=== PATIENT | female | born 1950 | race Caucasian/White ===

== ENCOUNTER → 2022-09-15 12:32 | Outpatient (REF) | payer MEDICARE, OTHER, SELFPAY ==
--- NOTE | 2022-09-15 12:38 | HM_ITS ---
* Total monitoring time 1 day. * Underlying rhythm is sinus. Average ventricular rate 99/Min. Range 68 to 139/Min. About 49% the time, rate greater than 100/Min. * No evidence of atrial fibrillation or flutter. * No significant pauses or AV blocks. * Patient marker noted in association with sinus tachycardia. No patient diary. MTDD
== END ==
LOC: HO.CARD 12:32
PROVIDERS: PCP Internal Medicine; Visit Provider Internal Medicine
DX: I47.9 Paroxysmal tachycardia, unspecified (principal)
CPT/HCPCS: 93226

== ENCOUNTER 2022-11-16 14:48 | Emergency (ER) | payer MEDICARE, OTHER, SELFPAY ==
--- NOTE | ~2022-11-16 | CT_ITS ---
EXAMINATION: CT ANGIOGRAM HEAD CT ANGIOGRAM NECK CLINICAL INFORMATION: Left-sided ptosis. Right hand weakness. Aphasia. COMPARISON: CT head from 11/16/2022. Brain MRI from 09/27/2011. TECHNIQUE: Initial noncontrast culled fruit packer imaging of the head and neck was performed. Comparison is made with noncontrast head CT from earlier today. Test bolus sequences followed by intravenous administration 70 mL of Omnipaque 350. Helical imaging was performed in the axial plane from the aortic arch to the skull vertex. Delayed postcontrast imaging of the head was also performed. The data was processed at the educational technologist's workstation for generation of MIP sequences. Angled MIPs and volume rendered reformatted images were also generated at an offline 3D workstation. Stenoses are assessed in accordance with NASCET criteria unless otherwise indicated. This CT examination was performed using dose optimization techniques as appropriate, variously including the following: *Automated exposure control. *Adjustment of mA and/or kV according to patient size (this includes techniques or standardized protocols for targeted exams where dose is matched to indication/reason for exam; i.e. extremities or head). *Use of iterative reconstruction technique. DLP: 1507 mGy-cm FINDINGS: CT Head: Left-sided BAHA bone anchor is noted. Evaluation of the left temporoparietal lobes is partially limited by metal artifact from this device. There is no evidence of acute intracranial hemorrhage or edematous territorial infarction. A few foci of hypoattenuation in the periventricular and deep white matter are consistent with mild microangiopathy. Welsh-white matter differentiation is preserved. The ventricles are normal in size and configuration. No evidence for obstructive hydrocephalus. No abnormal mass effect or midline shift. No extra-axial fluid collections. No pathologic intra-axial enhancement. No acute soft tissue or osseous abnormalities. Mild mucosal thickening of the paranasal sinuses. Mild leftward nasal septal deviation. The mastoid air cells and middle ear cavities are clear. Advanced degenerative arthropathy of the left temporomandibular joint. CT Neck: Changes of recent left-sided endarterectomy with small volume soft tissue gas and moderate edema surrounding the left carotid bulb. There is mild rightward shift of the larynx and cervical trachea. The thyroid gland and remaining cervical soft tissues are within normal limits. No unexpected radiopaque foreign bodies. Straightening of the normal cervical lordosis. Advanced degenerative disc disease from C3-T2. Facet and uncovertebral joint arthropathy leads to osseous encroachment on the neural foramina from C3-C7. CT Upper Chest: The visualized lung apices and upper mediastinum are within normal limits. Neck CTA: Aortic Arch: Normal contour and caliber. Classic 3 vessel branching pattern of the aortic arch. Great Vessel Origins: No significant stenosis of the branch origins. Right Common Carotid Artery: No focal stenosis or occlusion. Cervical Right Internal Carotid Artery: Heavy calcific atherosclerotic disease of the carotid bulb and proximal internal carotid causes 75% stenosis of the origin of the right ICA. Left Common Carotid Artery: Changes of recent left-sided endarterectomy. Otherwise, normal opacification of the left common carotid artery. Cervical Left Internal Carotid Artery: Following endarterectomy, left carotid bulb is widely patent. There is 35% narrowing of the proximal left ICA at the junction of the endarterectomy site. Cervical Right Vertebral Artery: Co-dominant. No focal stenosis or occlusion. Cervical Left Vertebral Artery: Co-dominant. No focal stenosis or occlusion. Brain CTA: Intracranial Internal Carotid Arteries: Calcific atherosclerotic disease of the intracranial internal carotid arteries without occlusion or flow-limiting stenosis. Right Anterior Cerebral Artery: Normal A1 segment. Normal opacification of the distal MK segments. Left Anterior Cerebral Artery: Normal A1 segment. Normal opacification of the distal KM segments. Anterior Communicating Artery: Normal. Right Middle Cerebral Artery: Normal M1 segment of the MCA without focal stenosis or occlusion. Normal arborization of the distal segments. Left Middle Cerebral Artery: Normal M1 segment of the MCA without focal stenosis or occlusion. Normal arborization of the distal segments. Right Vertebral Artery: Normal V4 segment. Normal opacification of the proximal segments of the posterior inferior cerebellar artery. Left Vertebral Artery: Normal V4 segment. Normal opacification of the proximal segments of the posterior inferior cerebellar artery. Basilar Artery: Normal without focal stenosis or occlusion. Normal appearance of the proximal superior cerebellar arteries. Right Posterior Cerebral Artery: Normal P1 segment. Normal opacification of the distal CLAY TRANSPORTER segments. Left Posterior Cerebral Artery: Normal P1 segment. Normal opacification of the distal CLAY TRANSPORTER segments. Normal opacification of the superior sagittal, straight, transverse, and sigmoid sinuses. CT/CT angio head neck stroke IMPRESSION: 1. No evidence of acute intracranial hemorrhage or edematous territorial infarction. Mild underlying microangiopathy and generalized cerebral volume loss. 2. CTA of the head and neck without proximal occlusion. 3. Heavy calcific atherosclerotic disease of the right carotid bulb and proximal ICA causes 75% stenosis of the origin of the right ICA. 4. Following endarterectomy, left carotid bulb is widely patent. There is 35% narrowing of the proximal left ICA at the junction of the endarterectomy site. 5. Moderate to advanced multilevel degenerative spondyloarthropathy of the cervical spine. This critical result was discussed with Dr. Arias at 18:39 on 11/16/2022 and it was ascertained that the content and urgency of the report was understood at the time of direct communication.
--- NOTE | ~2022-11-16 | CT_ITS ---
EXAMINATION: CT HEAD WITHOUT CONTRAST (STROKE PROTOCOL) CLINICAL INFORMATION: Stroke protocol. Neurologic deficit. COMPARISON: Brain MRI and head CT from 09/27/2011. TECHNIQUE: Contiguous axial imaging was performed from the skull base to vertex without intravenous administration of contrast. This CT examination was performed using dose optimization techniques as appropriate, variously including the following: *Automated exposure control *Adjustment of mA and/or kV according to patient size (this includes techniques or standardized protocols for targeted exams where dose is matched to indication/reason for exam; i.e. extremities or head) *Use of iterative reconstruction technique DLP: 642 mGy-cm FINDINGS: Streak artifact is produced by a somewhat disc shaped metallic structure embedded within region of inferior left parietal bone and scalp. The streak artifact partially interferes with evaluation of underlying brain parenchyma. The brain has well-preserved greenwood-white matter differentiation. No evidence of an acute major vascular territory infarction. No intracranial hemorrhage is identified. No extra-axial fluid collection, focal mass effect or midline shift. The ventricles have normal size and configuration. The brainstem and cerebellum are normal. There is atherosclerotic calcification of proximal intradural segments of vertebral arteries and cavernous carotid arteries. The visualized paranasal sinuses and mastoid air cells are well aerated. Prior ocular lens extractions. There is chronic arthrosis of the left temporomandibular joint with presence of a relatively shallow mandibular fossa of the joint. CT/CT head for stroke IMPRESSION: No evidence of intracranial hemorrhage or other acute intracranial pathology. No evidence of a major vascular territory infarction. Note that examination is partially limited by the streak artifact present by a metallic, somewhat disc shaped structure embedded in bone. This critical result was discussed with Dr. Aranda at 3:42 pm on 11/16/2022. It was ascertained that the content and urgency of the report was understood at the time of direct communication.
--- NOTE | 2022-11-16 14:59 | ECG_ITS ---
Test Reason : stroke Blood Pressure : / mmHG Vent. Rate : 095 BPM Atrial Rate : 095 BPM P-R Int : 142 ms QRS Dur : 078 ms QT Int : 352 ms P-R-T Axes : -04 -01 028 degrees QTc Int : 442 ms Normal sinus rhythm Normal ECG When compared with ECG of 01-OCT-2011 10:31, QRS duration has decreased Referred By: Paula Aranda Electronically Signed By:Andreas Patel
[2022-11-16 15:10] VITALS: BP 105/49; BP 155/88; PULSE 100; PULSE 80; RESP 18; TEMP 37.1; O2SAT 96; O2SAT 98; BMI 34.9
--- NOTE | 2022-11-16 15:21 | PC.NURSE ---
Patient in Ct scan Dr. Paula Aranda putting in IV in Ct scan via ultrasound guidance. Patient difficult stick. awaiting patient to get in room to do vitals and lab draws.
--- NOTE | 2022-11-16 15:25 | ED_ITS ---
HPI - Neuro Symptoms/Deficit General Chief Complaint: Stroke Stated Complaint: left arm weakness and difficulty finding words x4h Time Seen by Provider: 11/16/22 14:57 Source: patient Mode of arrival: EMS Limitations: no limitations and other History of Present Illness HPI Narrative: 72 yo female with hx of TIA in October, found to have 80% L carotid stenosis and underwent endartectomy at [facility] on 11/12, HLD, DM she reportedly developed some word finding difficulties at 1030pm today - she has been taking eliquis 5mg BID. She also notes putting herself down to the ground without head injury today after realizing she was going to fall. Related Data Home Medications Medication Instructions Recorded Confirmed albuterol sulfate 90 mcg/actuation 2 puff inhalation Q6H PRN 07/21/22 11/03/22 aerosol inhaler bupropion HCl 300 mg 24 hr tablet, 300 mg PO QAM 07/21/22 11/03/22 extended release escitalopram oxalate 20 mg tablet 20 mg PO DAILY 07/21/22 11/03/22 gabapentin 100 mg capsule 100 mg PO TID PRN 07/21/22 11/03/22 ropinirole 4 mg tablet 4 mg PO BID 07/21/22 11/03/22 Previous Rx's Medication Instructions Recorded atorvastatin 40 mg tablet 40 mg PO DAILY #90 tabs 11/03/22 blood sugar diagnostic (OneTouch #100 ea 11/03/22 Ultra Test strips) blood-glucose meter (OneTouch #1 ea 11/03/22 Ultra2 Meter kit) metformin 750 mg tablet,extended 750 mg PO DAILY #90 tabs 11/03/22 release 24 hr metoprolol succinate 25 mg 25 mg PO DAILY #90 tabs 11/03/22 tablet,extended release 24 hr Allergies Allergy/AdvReac Type Severity Reaction Status Date / Time rofecoxib [From Vioxx] Allergy Intermediate went into Verified 11/03/22 11:59 CHF Penicillins Allergy Mild mold Unverified 11/03/22 11:59 allergy penicillin V Allergy Unknown mold Verified 11/03/22 11:59 allergy NSAIDS (Non-Steroidal Allergy raises Verified 11/03/22 11:59 Anti-Inflamma cratinine level clarithromycin [From Biaxin] AdvReac Mild UPSET Unverified 11/03/22 11:59 STOMACH meperidine [From Demerol] AdvReac Mild cofusion Unverified 11/03/22 11:59 ineffective pain med Review of Systems Review of Systems: Constitutional : No Fever, No Chills, No Fatigue ENT/Mouth : No sore throat, No Rhinorrhea Eyes: No Eye Pain, No Swelling, No Redness Cardiovascular : No Chest Pain, No SOB, No Dyspnea on Exertion Respiratory : No Cough, No Sputum Gastrointestinal : No Nausea, No Vomiting, No Diarrhea, No abdominal Pain Genitourinary : No Dysuria, No Urinary Frequency, No Hematuria, Musculoskeletal : No joint pain, No Myalgias, No Joint Swelling Skin : No Skin Lesions, No rash Neuro : pos Weakness, No Numbness, No Dizziness, no Headache Psych : No Anxiety/Panic, No Depression Heme/Lymph: No Bruising, No Bleeding,No Lymphadenopathy Endocrine : No Polyuria, No Polydipsia All other systems reviewed and are negative FOR[facility]LY [facility] Past Medical History Attestation statement: The following information was validated with the patient. 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 Oriented X3. No acute distress. anxious somewhat upset she is here wanted to go to [facility] Eyes: R 2mm pupils ERRL, L pupil 3mm ERRL ENT: Pharynx normal. Neck: neck is swollen, not red very bruised, left scar is raised, no redness or drainage but it is markedly swollen surgical glue in place CVS: Normal heart rate and rhythm. Pulses normal. Respiratory: No respiratory distress. Breath sounds normal. Abdomen: Soft and nontender. Skin: Skin warm and dry. Normal skin color. Normal skin turgor. Extremities: No lower extremity edema. No calf ttp Neuro: Oriented X 3. intermittent inappropriate exchange of words but no dysarthria. L side of face has mild ptosis unable to fully raise L eyebrow, pupil on L side is slightly bigger, R hand senior java software engineer is 4/5 compared to L hand senior java software engineer 5/5, no other deficits noted Course Course Course Narrative: call from Radiology 342pm - no ICH now refusing blood draws by RNs was going to leave AMA but after discussion agrees to repeat IV attempt and CTA will sign out to oncoming provider surgeon at [facility] is Dr. Caceres signed out to Dr. Arias Medical Decision Making Medical Decision Making MDM Narrative: 72 yo female with hx of TIA in October, found to have 80% L carotid stenosis and underwent endartectomy at [facility] on 11/12, HLD, DM presents with L sided facial deficits and R hand weakness s/p endarterectomy 4 days ago. She is on eliquis and presents 4.5 hours after onset so she would be not a candidate for tPa as well as surgery in last week. She could possible have had CVA, sherice's syndro me, infection. She is not happy she is here wanted to go to [facility]. She initially refuses to lay flat for CT head and CTA due to her uvula bothering her and she has sleep apnea. I explained to the patient the importance of the study and we will try to prop her up. Patient was then a difficult stick on first US attempt flash was noted but she moved her arm. RN then attempted and failed. I went to the other other to get IV for CTA to look for occlusion/infection but the patient is now refusing and will only allow blood draws with butterfly needles, she states she will take her risk with not getting the CTA - she is alert and oriented x 3. She says she is not trying to be difficult or pissy but doesn't want to be prodded anymore. At this time EKG CT head dry and labs ordered. Differential Diagnosis Differential Diagnoses: The differential diagnosis associated with the presentation includes sherice's syndrome, stroke, endartectomy occlusion, CVA, TIA, infection Admission/Observation Consideration of admission/observation: Escalation of care including a dmission/observation considered Lab Data MDM Lab Attestation statement: I reviewed the patient's lab results. Independent Interpretation I performed an independent interpretation of an: EKG and CT Scan Interpretation: Rate: 95 Rhythm: NSR Esparto: normal Normal P waves. Normal GENARO. Normal QRS complex. ST T wave : normal no GEORGINA qTC: normal prior studies: no acute ischemia The study has been interpreted contemporaneously by me. . Independent Historian Clinical information obtained from an independent historian. History obtained from or confirmed by: Spouse and EMS External Record Review External record reviewed: Office record and Outpatient record NIH Stroke Scale Internal: Initial- Upon Arrival Level of Consciousness: Alert Level of Consciousness Questions: Answers both questions correctly Level of Consciousness Commands: Performs both tasks correctly Best Gaze: Normal Visual: No visual loss Facial Palsy: Minor paralyis Motor Arm (Right): Drift Motor Arm (Left): No drift Motor Leg (Right): No drift Motor Leg (Left): No drift Limb Ataxia: Absent Sensory: Normal Best Language: Mild to moderate aphasia Dysarthia: Normal Extinction and Inattention: No abnormality Score: 3 Discharge Plan Discharge Clinical Impression: Weakness Patient Disposition: Still a Patient Prescriptions: No Action metoprolol succinate 25 mg tablet extended release 24 hr 25 mg PO DAILY Qty: 90 3RF metformin 750 mg tablet extended release 24 hr 750 mg PO DAILY Qty: 90 3RF (DME) OneTouch Ultra Test Strip See Rx Instructions .Route Qty: 100 3RF Rx Instructions: 1 qd (DME) blood-glucose meter [OneTouch Ultra2 Meter] Kit See Rx Instructions .Route Qty: 1 0RF Rx Instructions: qd atorvastatin 40 mg tablet 40 mg PO DAILY Qty: 90 0RF ropinirole 4 mg tablet 4 mg PO BID escitalopram oxalate 20 mg tablet 20 mg PO DAILY bupropion HCl 300 mg tablet extended release 24 hr 300 mg PO QAM albuterol sulfate 90 mcg/actuation HFA aerosol inhaler 2 puff inhalation Q6H PRN gabapentin 100 mg capsule 100 mg PO TID PRN
[2022-11-16 17:12] LABS: MANUAL DIFF FLAG NO
[2022-11-16 17:17] LABS: Basophils Absolute Auto 0.1 X10*3/uL (0.0-0.2); Basophils Percent Auto 0.6 % (0-2); Eosinophils Absolute Auto 0.2 X10*3/uL (0.0-0.4); Eosinophils Percent Auto 1.7 % (0-4); Hemoglobin 12.3 g/dl (12.0-16.0); Imm Gran Abs Auto 0.03 X10*3/uL (0.00-0.03); Imm Gran Pct Auto 0.3 % (0.0-0.4); Lymphocytes Absolute Auto 3.8 X10*3/uL (1.2-4.9); Mean Corpuscular HGB Conc 32.4 g/dl (31.0-35.0); Mean Corpuscular Hemoglobin 28.9 pg (27.0-33.0); Mean Corpuscular Volume 89.4 fL (80.0-98.0); Mean Platelet Volume 8.6 fL (9.4-12.3); Monocytes Absolute Auto 0.7 X10*3/uL (0.1-1.2); Monocytes Percent Auto 6.3 % (2-11); Neutrophils Absolute Auto 5.8 x10*3/uL (2.0-8.3); Neutrophils Percent Auto 55.1 % (45-73); Platelet Count 304 X10*3/uL (160-400); Red Blood Count 4.25 X10*6/uL (4.20-5.50); White Blood Count 10.5 X10*3/uL (4.8-10.8)
[2022-11-16 17:19] LABS: INTERNATIONAL NORM RATIO 1.2 (0.9-1.1); Prothrombin Time 13.4 SEC (10.0-13.1)
[2022-11-16 17:33] LABS: Anion Gap 14 (12-20); Blood Urea Nitrogen 9 mg/dL (9-16); Calcium 9.2 mg/dL (8.4-10.2); Carbon Dioxide 32 mmol/L (22-29); Chloride 95 mmol/L (96-108); Creatinine Clr Calc Pharmacy 69.9; Estimated Glomerular Filt Rate > 60; Glucose Random 105 mg/dL (60-115); Sodium 137 mmol/L (135-145)
[2022-11-16 17:39] LABS: COVID-19 Test Negative (Negative); IDNOW Serial# BCCEAD1C
[2022-11-16 17:44] LABS: Troponin-I High Sensitivity 624.5 ng/L (<3.5-17.0)
[2022-11-16] MEDS: iohexoL 350 MG/ML 100 ML INFUS..BTL IV (17:53)
[2022-11-16 18:50] VITALS: BP 132/55; PULSE 90; RESP 11; TEMP 37.3; O2SAT 95
[2022-11-16 19:04] LABS: Glucose, Whole Blood 115 mg/dL (60-115)
--- NOTE | 2022-11-16 20:21 | MHC.EDTECH ---
Call from Brissa at [facility] transfer line @2019 Bed Assignment is MM6 Bed 8 Nurse to Nurse [phone]
[2022-11-16 20:24] VITALS: BP 146/62; PULSE 98; RESP 20; TEMP 37.4; O2SAT 95
--- NOTE | 2022-11-16 21:24 | PC.NURSE ---
Patient alert and oriented x 3. Initially refused iv in ct scan for stroke alert than changed her mind and asked for MD to come and insert IV. Patient is a hard stick took Dr. Jhonny marmolejo tries to get a 20g in right antecubital. Patient denies any pain, sob, and dizziness. Patient was able to walk to bathroom with stand by assist. Patient c/o right great big toe and ball of foot that is numb and right hand. Tried to call report to Olga Lidia at [facility] on M6 she said she will call me back. Georges came and picked up patient at 2130. Will await call from [facility].
== END 2022-11-16 21:36 | disposition still patient (30) ==
PROVIDERS: Emergency Medicine; Physician Assistant; Emergency Provider Emergency Medicine; PCP Internal Medicine
DX: R53.1 Weakness (principal); R29.703 NIHSS score 3; M54.2 Cervicalgia; R51.9 Headache, unspecified; R47.01 Aphasia; Z86.73 Personal history of transient ischemic attack (TIA), and cerebral infarction without residual deficits; Z79.01 Long term (current) use of anticoagulants; Z79.899 Other long term (current) drug therapy; Z20.822 Contact with and (suspected) exposure to COVID-19; Z20.828 Contact with and (suspected) exposure to other viral communicable diseases
CPT/HCPCS: 36415; 70450; 70496; 70498; 80048; 82947; 83735; 84484; 85025; 85610; 87635; 93005; 99285; Q9967

== ENCOUNTER 2022-12-16 14:59 | Observation (INO) | payer MEDICARE, OTHER, SELFPAY ==
--- NOTE | ~2022-12-16 | XR_ITS ---
EXAMINATION: XR CHEST CLINICAL INFORMATION: Crackles. COMPARISON: Most recent CTA chest dated 12/16/2022. TECHNIQUE: Frontal view of the chest was obtained. FINDINGS: The lungs are clear. The cardiomediastinal silhouette is normal in size. There is no pleural effusion or pneumothorax. Reverse total right shoulder arthroplasty without evidence of complication. No acute osseous abnormality. XR/XR chest 1V IMPRESSION: No acute cardiopulmonary findings.
--- NOTE | ~2022-12-16 | CT_ITS ---
EXAMINATION: CT ANGIOGRAM OF THE CHEST WITH AND WITHOUT CONTRAST (CT PULMONARY ANGIOGRAM FOR PE) CLINICAL INFORMATION: Reason for Exam dyspnea COMPARISON: Chest x-ray 12/16/2022 TECHNIQUE: Prior to contrast administration, noncontrast localization images were obtained. Subsequently, multidetector volumetric imaging was performed from the thoracic inlet to below the diaphragms following the administration of 80 mL Omnipaque 350 intravenous contrast. No contrast reaction reported Sagittal, coronal, and MIP oblique sagittal reformatted images were obtained on the CT workstation, uploaded to PACS, and reviewed. This CT examination was performed using dose optimization techniques as appropriate, variously including the following: *Automated exposure control *Adjustment of mA and/or kV according to patient size (this includes techniques or standardized protocols for targeted exams where dose is matched to indication/reason for exam; i.e. extremities or head) *Use of iterative reconstruction technique Total exam dose-length product 413 mGy-cm FINDINGS: QUALITY OF STUDY/CONTRAST BOLUS: Satisfactory. PULMONARY ARTERIES: No central or segmental pulmonary emboli. THORACIC AORTA: No aneurysm or dissection. LUNG: The lungs are well-expanded and clear of acute pneumonic process. No pulmonary nodule, mass or consolidation seen. PLEURA: No pleural effusion or pneumothorax. MEDIASTINUM: Normal heart size. No pericardial effusion. No hilar or mediastinal lymphadenopathy. No evidence of septal bowing or right heart strain. CORONARY ARTERY CALCIFICATION: There is moderate coronary artery calcification present. CHEST WALL/AXILLA: No axillary or internal mammary lymphadenopathy. OSSEOUS STRUCTURES: No acute or suspicious osseous abnormality. UPPER ABDOMEN: Visualized liver, spleen, pancreas and bilateral adrenal glands are unremarkable. There is a lap band in left epigastric region. No reflux of contrast into the hepatic veins to suggest elevated right heart pressures. CT/CT angio chest PE protocol IMPRESSION: No evidence of PE. No evidence aortic dissection or aneurysm. The lungs are clear. VTE: negative
--- NOTE | ~2022-12-16 | XR_ITS ---
EXAMINATION: XR CHEST CLINICAL INFORMATION: Shortness of breath COMPARISON: None available. TECHNIQUE: Portable upright AP view of the chest was obtained. FINDINGS: Lungs clear. The vascularity is normal. There is no pneumothorax, airspace consolidation, vascular congestion, or effusion. Heart size normal. The costophrenic sulci are clear. The hilar and mediastinal contours are unremarkable. There is a right shoulder prosthesis. XR/XR chest 1V IMPRESSION: Unremarkable examination.
--- NOTE | 2022-12-16 15:23 | ED.SOB ---
HPI - SOB/Dyspnea General Chief Complaint: Dyspnea <VICK Ayala - Last Filed: 12/16/22 15:31> Stated Complaint: Pneumonia sent by urgent care <VICK Ayala - Last Filed: 12/16/22 15:31> Time Seen by Provider: 12/16/22 17:07 <VICK Ayala - Last Filed: 12/16/22 15:31> Source: patient, RN notes reviewed and old records reviewed <Franklyn Linares - Last Filed: 12/16/22 19:50> Mode of arrival: ambulatory <Franklyn Linares - Last Filed: 12/16/22 19:50> Limitations: no limitations <Franklyn Linares - Last Filed: 12/16/22 19:50> History of Present Illness HPI Narrative: A 72-year-old female with past medical history significant for bronchitis, paroxysmal tachycardia, recent TIA who presents for evaluation of shortness of breath Patient reports her symptoms started 11 days ago on December 05, 2022. She went to urgent care a couple days later and was prescribed prednisone, albuterol and Bactrim She reports that her symptoms have continued to worsen and she endorses increased shortness of breath with exertion and productive cough She completed her course of antibiotics yesterday Denies any fevers, chills, pain Of note, the patient was treated with a DuoNeb, Solu-Medrol, hydrocodone prior to my evaluation She reports feeling somewhat better after this treatment The patient has never been a smoker <Franklyn Linares - Last Filed: 12/16/22 19:50> Related Data Home Medications: Home Medications Medication Instructions Recorded Confirmed albuterol sulfate 90 mcg/actuation 2 puff inhalation Q6H PRN 07/21/22 11/03/22 aerosol inhaler bupropion HCl 300 mg 24 hr tablet, 300 mg PO QAM 07/21/22 11/03/22 extended release escitalopram oxalate 20 mg tablet 20 mg PO DAILY 07/21/22 11/03/22 gabapentin 100 mg capsule 100 mg PO TID PRN 07/21/22 11/03/22 ropinirole 4 mg tablet 4 mg PO BID 07/21/22 11/03/22 Previous Rx's Medication Instructions Recorded atorvastatin 40 mg tablet 40 mg PO DAILY #90 tabs 11/03/22 metformin 750 mg tablet,extended 750 mg PO DAILY #90 tabs 11/03/22 release 24 hr metoprolol succinate 25 mg 25 mg PO DAILY #90 tabs 11/03/22 tablet,extended release 24 hr albuterol sulfate 90 mcg/actuation 1 inh inhalation QID PRN shortness 12/08/22 aerosol inhaler (Ventolin HFA) of breath or wheezing #8.5 grams blood sugar diagnostic (Sinosun TechnologyTouch #100 ea 12/08/22 Ultra Test strips) blood-glucose meter (Sinosun TechnologyTouch #1 ea 12/08/22 Ultra2 Meter kit) lancets 33 gauge (Sinosun TechnologyTouch Delica #100 ea 12/08/22 Lancets) azithromycin 250 mg tablet See Rx Instructions PO .COMPLEX #6 12/16/22 tabs <VICK Ayala - Last Filed: 12/16/22 15:31> Allergies/Adverse Reactions: Allergies Allergy/AdvReac Type Severity Reaction Status Date / Time rofecoxib [From Vioxx] Allergy Intermediate went into Verified 12/16/22 14:03 CHF Penicillins Allergy Mild mold Verified 12/16/22 18:55 allergy penicillin V Allergy Unknown mold Verified 12/16/22 14:03 allergy NSAIDS (Non-Steroidal Allergy raises Verified 12/16/22 14:03 Anti-Inflamma cratinine level clarithromycin [From Biaxin] AdvReac Mild UPSET Verified 12/16/22 18:55 STOMACH meperidine [From Demerol] AdvReac Mild cofusion Verified 12/16/22 18:55 ineffective pain med <VICK Ayala - Last Filed: 12/16/22 15:31> Review of Systems Constitutional: Constitutional: Reports as per HPI, Denies chills, Denies fever(s) and Denies headache(s) <Franklyn Linares - Last Filed: 12/16/22 19:50> ENT: Denies headache(s) <Franklyn Linares - Last Filed: 12/16/22 19:50> Cardiovascular: Cardiovascular: Denies chest pain and Reports dyspnea <Franklyn Linares - Last Filed: 12/16/22 19:50> Respiratory: Respiratory: Reports chest congestion, Reports cough (Endorses positive sputum production) and Reports dyspnea <Franklyn Linares - Last Filed: 12/16/22 19:50> Gastrointestinal: Gastrointestinal: Denies abdominal pain, Denies constipation and Denies vomiting <Franklyn Linares - Last Filed: 12/16/22 19:50> Genitourinary: Genitourinary: Denies dysuria <Franklyn Linares - Last Filed: 12/16/22 19:50> Neurologic: Denies headache(s) and Denies focal weakness <Franklyn Linares - Last Filed: 12/16/22 19:50> FOR[facility]LY [facility], [facility] Past Medical History Medical History: Medical History Diabetes type 2, controlled Hx of respiratory syncytial virus infection Hyperlipidemia TIA (transient ischemic attack) <VICK Ayala - Last Filed: 12/16/22 15:31> Surgical History: Surgical History H/O lumpectomy History of right salpingo-oophorectomy History of total replacement of right shoulder joint History of total right knee replacement Hx of laparoscopic gastric banding <VICK Ayala - Last Filed: 12/16/22 15:31> Family History Family History: Family History Father Hypertension Heart disease Mother Hypertension Osteoporosis Diabetes Mental health disorder <VICK Ayala - Last Filed: 12/16/22 15:31> Social History Social History: Social History Household Members Other:: retired nurse, , 2 daughters, 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, Housing: House Patient Tobacco Use Status: Never used Tobacco e-Cigarette/Vaping Use: Never Used Advance Directives: Yes Advance Directives Information Provided: No Advance Directives on File: No Current occupational status: retired Cognitive needs: No Hearing needs: No Vision needs: Yes <VICK Ayala - Last Filed: 12/16/22 15:31> Physical Exam Vital Signs: Vital Signs: Last Vital Signs Temp 98 F 12/16/22 15:25 Pulse 105 H 12/16/22 18:56 Resp 19 12/16/22 18:56 BP 170/104 H 12/16/22 15:25 Pulse Ox 91 L 12/16/22 18:56 O2 Del Method 12/16/22 18:56 BMI result Body Mass Index 38.2 <VICK Ayala - Last Filed: 12/16/22 15:31> Vital Signs: Last Vital Signs Temp 98 F 12/16/22 15:25 Pulse 105 H 12/16/22 18:56 Resp 19 12/16/22 18:56 BP 170/104 H 12/16/22 15:25 Pulse Ox 91 L 12/16/22 18:56 O2 Del Method 12/16/22 18:56 BMI result Body Mass Index 38.2 <Franklyn LealCoke - Last Filed: 12/16/22 19:50> Const: General: healthy appearing, comfortable, no acute distress, alert and awake <Franklyn LealCoke - Last Filed: 12/16/22 19:50> Nutritional Appearance: well nourished <Franklyn - Last Filed: 12/16/22 19:50> Orientation/consciousness: patient oriented x3 <Franklyn O - Last Filed: 12/16/22 19:50> HEENT: Head: Yes normocephalic and Yes atraumatic <Franklyn - Last Filed: 12/16/22 19:50> Throat: Yes posterior oropharynx normal <Franklyn - Last Filed: 12/16/22 19:50> Eyes: Eyelids: Yes eyelids normal <Franklyn OCoke - Last Filed: 12/16/22 19:50> Conjunctivae: conjunctivae normal < - Last Filed: 12/16/22 19:50> Sclerae: sclerae normal < - Last Filed: 12/16/22 19:50> Corneas: corneas normal <Franklyn - Last Filed: 12/16/22 19:50> Pupils: Equal, round and reactive pupils present <Franklyn OCoke - Last Filed: 12/16/22 19:50> EOM: EOMs intact bilaterally <Franklyn OMarcelo - Last Filed: 12/16/22 19:50> Neck: Neck: Yes full ROM < Last Filed: 12/16/22 19:50> Resp: Effort & Inspection: able to speak in complete sentences, audible wheezes and Actively coughing < Last Filed: 12/16/22 19:50> Auscultation: wheezes expiratory wheezes, inspiratory wheezes and throughout < Last Filed: 12/16/22 19:50> Cardio: Other: no lower extremity edema < - Last Filed: 12/16/22 19:50> Rate: regular rate < Last Filed: 12/16/22 19:50> Rhythm: regular rhythm < Last Filed: 12/16/22 19:50> GI: Inspection: No distended < Last Filed: 12/16/22 19:50> Palpation (GI): Soft to palpation, not firm, nontender, no guarding and not rigid < Last Filed: 12/16/22 19:50> Auscultation: normoactive bowel sounds < Last Filed: 12/16/22 19:50> Skin: General skin exam: no rashes or lesions noted and elasticity normal < Last Filed: 12/16/22 19:50> Neuro: General: patient oriented x3 < Last Filed: 12/16/22 19:50> Cranial nerves: Yes CN's II-XII intact bilaterally, Yes Equal, round and reactive pupils present and Yes Bilaterally intact EOM present < Last Filed: 12/16/22 19:50> Cognition (Neuro): normal cognition < Last Filed: 12/16/22 19:50> Course Course Course Narrative: RME--72-year-old female w/PMHx DM, HLD, TIA, CVA, recent Bronchitis on 12/08/22 tx with prednisone, albuterol, Bactrim, presents to ED from with worsening shortness of breath, cough, wheezing, fatigue, subjective fevers, and elevated HR. Recieved 1 duoneb [employer] +diffuse exp wheeze and decreased lung sounds noted EKG, Labs, Lactic/Blood Cx, CXR, SARS/COVID/RSV, Duoneb and Solumedrol, Hycodan & Tessalon pearls ordered <VICK Ayala - Last Filed: 12/16/22 15:31> Medications Administered Discontinued Medications Generic Name Dose Route Start Last Admin Trade Name Adamq PRN Reason Stop Dose Admin Benzonatate 100 mg 12/16/22 15:29 12/16/22 15:44 Benzonatate 100 Mg Capsule PO 12/16/22 15:30 100 mg ONCE ONE Administration Albuterol Sulfate 2.5 mg/ 0 mg 12/16/22 15:26 12/16/22 15:58 Ipratropium [place] 0.5 mg INHALE 12/16/22 15:27 2.5 each ONCE ONE Administration Hydrocodone Bit/Homatropine Methylb 5 ml 12/16/22 15:29 12/16/22 15:44 Hydrocodone/Homat 5/1.5/5 Ml 5 Ml Syrup PO 12/16/22 15:30 5 ml ONCE ONE Administration Sodium Chloride 1,000 mls @ 999 mls/hr 12/16/22 17:30 12/16/22 18:54 Ns IV 12/16/22 18:30 Infused .Q1H1M EUNICE Infusion Magnesium Sulfate 2 gm in 50 mls @ 25 mls/hr 12/16/22 17:28 12/16/22 17:42 Magnesium Sulfate/H2o IV 12/16/22 19:27 25 mls/hr ONCE ONE Administration Azithromycin 500 mg/ Sodium 250 mls @ 125 mls/hr 12/16/22 17:28 12/16/22 18:27 Chloride IV 12/16/22 19:27 125 mls/hr ONCE ONE Administration Iohexol 100 ml 12/16/22 18:15 12/16/22 18:15 Iohexol 350 Mg/Ml 100 Ml Infus..Btl IV 12/16/22 18:16 65 ml ONCE ONE Administration Methylprednisolone Sodium Succinate 125 mg 12/16/22 15:26 12/16/22 15:44 Methylprednisolone Sod Succ 125 Mg/2 Ml Vial IVPUSH 12/16/22 15:27 125 mg ONCE ONE Administration <VICK Ayala - Last Filed: 12/16/22 15:31> Medications Administered Discontinued Medications Generic Name Dose Route Start Last Admin Trade Name Laquita PRN Reason Stop Dose Admin Benzonatate 100 mg 12/16/22 15:29 12/16/22 15:44 Benzonatate 100 Mg Capsule PO 12/16/22 15:30 100 mg ONCE ONE Administration Albuterol Sulfate 2.5 mg/ 0 mg 12/16/22 15:26 12/16/22 15:58 Ipratropium [place] 0.5 mg INHALE 12/16/22 15:27 2.5 each ONCE ONE Administration Hydrocodone Bit/Homatropine Methylb 5 ml 12/16/22 15:29 12/16/22 15:44 Hydrocodone/Homat 5/1.5/5 Ml 5 Ml Syrup PO 12/16/22 15:30 5 ml ONCE ONE Administration Sodium Chloride 1,000 mls @ 999 mls/hr 12/16/22 17:30 12/16/22 18:54 Ns IV 12/16/22 18:30 Infused .Q1H1M EUNICE Infusion Magnesium Sulfate 2 gm in 50 mls @ 25 mls/hr 12/16/22 17:28 12/16/22 17:42 Magnesium Sulfate/H2o IV 12/16/22 19:27 25 mls/hr ONCE ONE Administration Azithromycin 500 mg/ Sodium 250 mls @ 125 mls/hr 12/16/22 17:28 12/16/22 18:27 Chloride IV 12/16/22 19:27 125 mls/hr ONCE ONE Administration Iohexol 100 ml 12/16/22 18:15 12/16/22 18:15 Iohexol 350 Mg/Ml 100 Ml Infus..Btl IV 12/16/22 18:16 65 ml ONCE ONE Administration Methylprednisolone Sodium Succinate 125 mg 12/16/22 15:26 12/16/22 15:44 Methylprednisolone Sod Succ 125 Mg/2 Ml Vial IVPUSH 12/16/22 15:27 125 mg ONCE ONE Administration <Franklyn Linares - Last Filed: 12/16/22 19:50> Medical Decision Making Medical Decision Making MDM Narrative: 72-year-old female presents for evaluation of shortness of breath. She rise in respiratory distress, she is tachycardic, tachypneic with audible wheeze and increased respiratory effort. She is afebrile, no sign of bacterial infection, chest x-ray is clear. Most likely represents acute bronchitis. The patient's feel the treatment of the otitis on prednisone and Bactrim. I am not quite certain why the patient was prescribed Bactrim although she does have an allergy to clarithromycin, though mild this may have been the reason for avoiding azithromycin. Given that the patient has allergy to clarithromycin is only a rash, will treat with azithromycin as feel the benefits outweigh the risks. We can she any GI upset. Again the patient has already received albuterol 10 mg with Atrovent, Solu-Medrol. I will add magnesium in addition to the azithromycin. We will ambulate the patient to see how she does x-ray after her treatments, but I anticipate the patient will require admission. The patient reports having had a knee replacement in October, followed by a carotid endarterectomy as well as having COVID in November, he has all increase her risk for PE, we will get a CT of chest to rule this out. I do feel this is less likely given the patient's significant audible wheeze I feel bronchitis is more likely <Franklyn Linares - Last Filed: 12/16/22 19:50> Differential Diagnosis Acute bronchitis COPD exacerbation PE Pneumonia CHF <Franklyn Linares - Last Filed: 12/16/22 19:50> Lab Data [facility] Lab Attestation statement: I reviewed the patient's lab results. <Franklyn Linares - Last Filed: 12/16/22 19:50> Result Diagrams: 12/16/22 15:47 12/16/22 15:47 <VICK Ayala - Last Filed: 12/16/22 15:31> Labs: Lab Results 12/16/22 12/16/22 12/16/22 Range/Units 15:47 15:47 15:47 WBC 10.2 (4.8-10.8) X10*3/uL RBC 4.91 (4.20-5.50) X10*6/uL Hgb 14.1 (12.0-16.0) g/dl Hct 43.7 (37.0-47.0) % MCV 89.0 (80.0-98.0) fL MCH 28.7 (27.0-33.0) pg MCHC 32.3 (31.0-35.0) g/dl RDW 14.2 (11.0-16.0) % Plt Count 299 (160-400) X10*3/uL MPV 8.6 L (9.4-12.3) fL Immature Gran % (Auto) 0.4 (0.0-0.4) % Neut % (Auto) 64.1 (45-73) % Lymph % (Auto) 25.9 (20-40) % Nance % (Auto) 5.2 (2-11) % Eos % (Auto) 3.8 (0-4) % Baso % (Auto) 0.6 (0-2) % Lymph # (Auto) 2.6 (1.2-4.9) X10*3/uL Nance # (Auto) 0.5 (0.1-1.2) X10*3/uL Eos # (Auto) 0.4 (0.0-0.4) X10*3/uL Baso # (Auto) 0.1 (0.0-0.2) X10*3/uL Abs Immat Gran (auto) 0.04 H (0.00-0.03) X10*3/uL Absolute Neuts (auto) 6.5 (2.0-8.3) x10*3/uL Absolute Nucleated RBC 0.000 (0.0-0.012) X10*3/uL Nucleated RBC % (auto) 0.0 (0.0-0.2) /100WBC Sodium 140 (135-145) mmol/L Potassium 3.6 (3.3-5.1) mmol/L Chloride 102 (96-108) mmol/L Carbon Dioxide 24 (22-29) mmol/L Anion Gap 18 (12-20) BUN 27 H (9-16) mg/dL Creatinine 1.10 (0.5-1.4) mg/dL Estim Creat Clear Calc 51.5 Estimated GFR 49 Random Glucose 118 H (60-115) mg/dL Lactic Acid (0.5-2.0) mmol/L Calcium 9.3 (8.4-10.2) mg/dL Magnesium 2.1 (1.6-2.6) mg/dL Total Bilirubin 0.4 (0.0-1.0) mg/dL Direct Bilirubin < 0.2 (0.0-0.5) mg/dL AST 16 (5-31) U/L ALT 17 (0-31) U/L Alkaline Phosphatase 114 (39-117) U/L Troponin I High Sens 4.9 D (<3.5-17.0) ng/L Total Protein 7.8 (6.5-8.0) g/dL Albumin 4.4 (3.5-5.0) g/dL Influenza Type A (PCR) (Negative) Influenza Type B (PCR) (Negative) RSV RNA Qual (PCR) (Negative) SARS-CoV-2 RNA (RT-PCR) (Negative) 12/16/22 12/16/22 Range/Units 15:47 16:14 WBC (4.8-10.8) X10*3/uL RBC (4.20-5.50) X10*6/uL Hgb (12.0-16.0) g/dl Hct (37.0-47.0) % MCV (80.0-98.0) fL MCH (27.0-33.0) pg MCHC (31.0-35.0) g/dl RDW (11.0-16.0) % Plt Count (160-400) X10*3/uL MPV (9.4-12.3) fL Immature Gran % (Auto) (0.0-0.4) % Neut % (Auto) (45-73) % Lymph % (Auto) (20-40) % Nance % (Auto) (2-11) % Eos % (Auto) (0-4) % Baso % (Auto) (0-2) % Lymph # (Auto) (1.2-4.9) X10*3/uL Nance # (Auto) (0.1-1.2) X10*3/uL Eos # (Auto) (0.0-0.4) X10*3/uL Baso # (Auto) (0.0-0.2) X10*3/uL Abs Immat Gran (auto) (0.00-0.03) X10*3/uL Absolute Neuts (auto) (2.0-8.3) x10*3/uL Absolute Nucleated RBC (0.0-0.012) X10*3/uL Nucleated RBC % (auto) (0.0-0.2) /100WBC Sodium (135-145) mmol/L Potassium (3.3-5.1) mmol/L Chloride (96-108) mmol/L Carbon Dioxide (22-29) mmol/L Anion Gap (12-20) BUN (9-16) mg/dL Creatinine (0.5-1.4) mg/dL Estim Creat Clear Calc Estimated GFR Random Glucose (60-115) mg/dL Lactic Acid 1.5 (0.5-2.0) mmol/L Calcium (8.4-10.2) mg/dL Magnesium (1.6-2.6) mg/dL Total Bilirubin (0.0-1.0) mg/dL Direct Bilirubin (0.0-0.5) mg/dL AST (5-31) U/L ALT (0-31) U/L Alkaline Phosphatase (39-117) U/L Troponin I High Sens (<3.5-17.0) ng/L Total Protein (6.5-8.0) g/dL Albumin (3.5-5.0) g/dL Influenza Type A (PCR) NEGATIVE (Negative) Influenza Type B (PCR) NEGATIVE (Negative) RSV RNA Qual (PCR) NEGATIVE (Negative) SARS-CoV-2 RNA (RT-PCR) NEGATIVE (Negative) <VICK Ayala - Last Filed: 12/16/22 15:31> Lab Results 12/16/22 12/16/22 12/16/22 Range/Units 15:47 15:47 15:47 WBC 10.2 (4.8-10.8) X10*3/uL RBC 4.91 (4.20-5.50) X10*6/uL Hgb 14.1 (12.0-16.0) g/dl Hct 43.7 (37.0-47.0) % MCV 89.0 (80.0-98.0) fL MCH 28.7 (27.0-33.0) pg MCHC 32.3 (31.0-35.0) g/dl RDW 14.2 (11.0-16.0) % Plt Count 299 (160-400) X10*3/uL MPV 8.6 L (9.4-12.3) fL Immature Gran % (Auto) 0.4 (0.0-0.4) % Neut % (Auto) 64.1 (45-73) % Lymph % (Auto) 25.9 (20-40) % Nance % (Auto) 5.2 (2-11) % Eos % (Auto) 3.8 (0-4) % Baso % (Auto) 0.6 (0-2) % Lymph # (Auto) 2.6 (1.2-4.9) X10*3/uL Nance # (Auto) 0.5 (0.1-1.2) X10*3/uL Eos # (Auto) 0.4 (0.0-0.4) X10*3/uL Baso # (Auto) 0.1 (0.0-0.2) X10*3/uL Abs Immat Gran (auto) 0.04 H (0.00-0.03) X10*3/uL Absolute Neuts (auto) 6.5 (2.0-8.3) x10*3/uL Absolute Nucleated RBC 0.000 (0.0-0.012) X10*3/uL Nucleated RBC % (auto) 0.0 (0.0-0.2) /100WBC Sodium 140 (135-145) mmol/L Potassium 3.6 (3.3-5.1) mmol/L Chloride 102 (96-108) mmol/L Carbon Dioxide 24 (22-29) mmol/L Anion Gap 18 (12-20) BUN 27 H (9-16) mg/dL Creatinine 1.10 (0.5-1.4) mg/dL Estim Creat Clear Calc 51.5 Estimated GFR 49 Random Glucose 118 H (60-115) mg/dL Lactic Acid (0.5-2.0) mmol/L Calcium 9.3 (8.4-10.2) mg/dL Magnesium 2.1 (1.6-2.6) mg/dL Total Bilirubin 0.4 (0.0-1.0) mg/dL Direct Bilirubin < 0.2 (0.0-0.5) mg/dL AST 16 (5-31) U/L ALT 17 (0-31) U/L Alkaline Phosphatase 114 (39-117) U/L Troponin I High Sens 4.9 D (<3.5-17.0) ng/L Total Protein 7.8 (6.5-8.0) g/dL Albumin 4.4 (3.5-5.0) g/dL Influenza Type A (PCR) (Negative) Influenza Type B (PCR) (Negative) RSV RNA Qual (PCR) (Negative) SARS-CoV-2 RNA (RT-PCR) (Negative) 12/16/22 12/16/22 Range/Units 15:47 16:14 WBC (4.8-10.8) X10*3/uL RBC (4.20-5.50) X10*6/uL Hgb (12.0-16.0) g/dl Hct (37.0-47.0) % MCV (80.0-98.0) fL MCH (27.0-33.0) pg MCHC (31.0-35.0) g/dl RDW (11.0-16.0) % Plt Count (160-400) X10*3/uL MPV (9.4-12.3) fL Immature Gran % (Auto) (0.0-0.4) % Neut % (Auto) (45-73) % Lymph % (Auto) (20-40) % Nance % (Auto) (2-11) % Eos % (Auto) (0-4) % Baso % (Auto) (0-2) % Lymph # (Auto) (1.2-4.9) X10*3/uL Nance # (Auto) (0.1-1.2) X10*3/uL Eos # (Auto) (0.0-0.4) X10*3/uL Baso # (Auto) (0.0-0.2) X10*3/uL Abs Immat Gran (auto) (0.00-0.03) X10*3/uL Absolute Neuts (auto) (2.0-8.3) x10*3/uL Absolute Nucleated RBC (0.0-0.012) X10*3/uL Nucleated RBC % (auto) (0.0-0.2) /100WBC Sodium (135-145) mmol/L Potassium (3.3-5.1) mmol/L Chloride (96-108) mmol/L Carbon Dioxide (22-29) mmol/L Anion Gap (12-20) BUN (9-16) mg/dL Creatinine (0.5-1.4) mg/dL Estim Creat Clear Calc Estimated GFR Random Glucose (60-115) mg/dL Lactic Acid 1.5 (0.5-2.0) mmol/L Calcium (8.4-10.2) mg/dL Magnesium (1.6-2.6) mg/dL Total Bilirubin (0.0-1.0) mg/dL Direct Bilirubin (0.0-0.5) mg/dL AST (5-31) U/L ALT (0-31) U/L Alkaline Phosphatase (39-117) U/L Troponin I High Sens (<3.5-17.0) ng/L Total Protein (6.5-8.0) g/dL Albumin (3.5-5.0) g/dL Influenza Type A (PCR) NEGATIVE (Negative) Influenza Type B (PCR) NEGATIVE (Negative) RSV RNA Qual (PCR) NEGATIVE (Negative) SARS-CoV-2 RNA (RT-PCR) NEGATIVE (Negative) <Franklyn Linares - Last Filed: 12/16/22 19:50> Independent Interpretation I performed an independent interpretation of an: EKG <Franklyn Linares - Last Filed: 12/16/22 19:50> Interpretation: Sinus rhythm with a rate of 98 beats per minute, no ectopy, no acute ischemia. Nondiagnostic EKG <Franklyn Linares - Last Filed: 12/16/22 19:50> Radiology Impression Discussion of test interpretation with radiology: I have reviewed the radiologist's reading. <Franklyn Linares - Last Filed: 12/16/22 19:50> Discharge Plan Discharge Clinical Impression: Acute bronchitis <VICK Ayala - Last Filed: 12/16/22 15:31> Patient Disposition: Admitted As Inpatient <VICK Ayala - Last Filed: 12/16/22 15:31> Prescriptions: No Action (DME) OneTouch Ultra Test Strip See Rx Instructions .Route Qty: 100 3RF Rx Instructions: 1 qd (DME) blood-glucose meter [Sinosun TechnologyTouch Ultra2 Meter] Kit See Rx Instructions .Route Qty: 1 0RF Rx Instructions: qd (DME) lancets [OneTouch Delica Lancets] 33 gauge misc See Rx Instructions .Route Qty: 100 3RF Rx Instructions: test blood sugar once a day azithromycin 250 mg tablet See Rx Instructions PO .COMPLEX Qty: 6 0RF Rx Instructions: For 250 mg dose pack: take 500 mg today (day 1), then 250 mg for 4 days (days 2-5) PO metoprolol succinate 25 mg tablet extended release 24 hr 25 mg PO DAILY Qty: 90 3RF metformin 750 mg tablet extended release 24 hr 750 mg PO DAILY Qty: 90 3RF atorvastatin 40 mg tablet 40 mg PO DAILY Qty: 90 0RF ropinirole 4 mg tablet 4 mg PO BID escitalopram oxalate 20 mg tablet 20 mg PO DAILY bupropion HCl 300 mg tablet extended release 24 hr 300 mg PO QAM albuterol sulfate 90 mcg/actuation HFA aerosol inhaler 2 puff inhalation Q6H PRN gabapentin 100 mg capsule 100 mg PO TID PRN albuterol sulfate [Ventolin HFA] 90 mcg/actuation HFA aerosol inhaler 1 inh inhalation QID PRN (Reason: shortness of breath or wheezing) Qty: 8.5 1RF <VICK Ayala - Last Filed: 12/16/22 15:31>
[2022-12-16 15:25] VITALS: BP 170/104; PULSE 108; RESP 18; TEMP 36.6; O2SAT 96; BMI 38.2
--- NOTE | 2022-12-16 15:26 | ECG_ITS ---
Test Reason : DYSPNEA Blood Pressure : / mmHG Vent. Rate : 098 BPM Atrial Rate : 098 BPM P-R Int : 144 ms QRS Dur : 090 ms QT Int : 354 ms P-R-T Axes : 072 -05 058 degrees QTc Int : 451 ms Normal sinus rhythm Possible Left atrial enlargement Borderline ECG When compared with ECG of 16-NOV-2022 15:42, No significant change was found Referred By: Fabi Douglas Electronically Signed By:Andreas Patel
[2022-12-16] MEDS: methylPREDNISolone Sod Succ 125 MG/2 ML VIAL IVPUSH (15:44)
[2022-12-16] MEDS: Benzonatate 100 MG CAPSULE PO (15:44)
[2022-12-16] MEDS: HYDROcodone/Homat 5/1.5/5 ML 5 ML SYRUP PO (15:44)
[2022-12-16 15:53] LABS: MANUAL DIFF FLAG NO
[2022-12-16 15:56] LABS: Basophils Absolute Auto 0.1 X10*3/uL (0.0-0.2); Basophils Percent Auto 0.6 % (0-2); Eosinophils Absolute Auto 0.4 X10*3/uL (0.0-0.4); Eosinophils Percent Auto 3.8 % (0-4); Hematocrit 43.7 % (37.0-47.0); Hemoglobin 14.1 g/dl (12.0-16.0); Imm Gran Abs Auto 0.04 X10*3/uL (0.00-0.03); Imm Gran Pct Auto 0.4 % (0.0-0.4); Lymphocytes Absolute Auto 2.6 X10*3/uL (1.2-4.9); Lymphocytes Percent Auto 25.9 % (20-40); Mean Corpuscular HGB Conc 32.3 g/dl (31.0-35.0); Mean Corpuscular Hemoglobin 28.7 pg (27.0-33.0); Mean Platelet Volume 8.6 fL (9.4-12.3); Monocytes Absolute Auto 0.5 X10*3/uL (0.1-1.2); Monocytes Percent Auto 5.2 % (2-11); Neutrophils Absolute Auto 6.5 x10*3/uL (2.0-8.3); Neutrophils Percent Auto 64.1 % (45-73); Platelet Count 299 X10*3/uL (160-400); Red Blood Count 4.91 X10*6/uL (4.20-5.50); Red Cell Distribution Width 14.2 % (11.0-16.0); White Blood Count 10.2 X10*3/uL (4.8-10.8)
[2022-12-16 15:58] VITALS: PULSE 102; RESP 21; O2SAT 99
[2022-12-16 16:12] LABS: Alanine Aminotransferase 17 U/L (0-31); Albumin Level 4.4 g/dL (3.5-5.0); Alkaline Phosphatase 114 U/L (39-117); Anion Gap 18 (12-20); Aspartate Amino Transferase 16 U/L (5-31); Bilirubin Direct < 0.2 mg/dL (0.0-0.5); Bilirubin Total 0.4 mg/dL (0.0-1.0); Blood Urea Nitrogen 27 mg/dL (9-16); Calcium 9.3 mg/dL (8.4-10.2); Carbon Dioxide 24 mmol/L (22-29); Chloride 102 mmol/L (96-108); Creatinine Clr Calc Pharmacy 51.5; Estimated Glomerular Filt Rate 49; Glucose Random 118 mg/dL (60-115); Magnesium 2.1 mg/dL (1.6-2.6); Potassium 3.6 mmol/L (3.3-5.1); Sodium 140 mmol/L (135-145); Total Protein 7.8 g/dL (6.5-8.0)
[2022-12-16 16:18] LABS: Troponin-I High Sensitivity 4.9 ng/L (<3.5-17.0)
[2022-12-16 16:30] LABS: Lactic Acid 1.5 mmol/L (0.5-2.0)
[2022-12-16 16:45] LABS: Influenza A PCR NEGATIVE (Negative); Influenza B PCR NEGATIVE (Negative); Resp Syncy Virus RNA Qual PCR NEGATIVE (Negative); SARS COV2 PCR INHOUSE NEGATIVE (Negative)
[2022-12-16] MEDS: Magnesium Sulfate/H2O 2 GM/50 ML PIGGYBACK IV (17:42)
[2022-12-16] MEDS: 0.9 % Sodium Chloride 1,000 ML 999 ML IV (17:42)
[2022-12-16] MEDS: iohexoL 350 MG/ML 100 ML INFUS..BTL IV (18:15)
[2022-12-16] MEDS: Azithromycin 500 MG in 0.9 % Sodium Chloride 250 ML 125 MG IV (18:27)
[2022-12-16 18:56] VITALS: PULSE 105; RESP 19; O2SAT 91
[2022-12-16] MEDS: Albuterol Sulfate (0.083%) 2.5 MG/3 ML VIAL.NEB 10 MG INHALE (19:50)
--- NOTE | 2022-12-16 20:03 | PHA.MEDREC ---
Pharmacy Consult ? Medication Reconciliation Pharmacy has completed the medication reconciliation.
--- NOTE | 2022-12-16 20:10 | P.HPHOSP_ITS ---
History of Present Illness Date of Service: 12/16/22 Chief Complaint: Dyspnea This is a 72-year-old female with pertinent history of seasonal bronchitis, mood disorder, mixed hyperlipidemia, essential hypertension, eel-lsvexpb-nfcqrkima diabetes mellitus who presents to the emergency department for evaluation of d yspnea. Patient states every time it gets cold outside, she has episodes of bronchitis which involves trouble breathing and wheezing. Patient 1st experienced symptoms about 10 days ago when she went to urgent care. She was prescribed p.o. prednisone and antibiotics. Patient completed the course yesterday and this morning when she got up, patient had severe dyspnea, worse with exertion and significant wheezing. Also has been having cough with intermittent sputum production. Has never been diagnosed with asthma or COPD. No history of smoking in the past. Patient denies fever, chills, chest discomfort, palpitations, abdominal pain, changes in urinary or bowel habits. In the emergency department, patient with significant wheezing despite multiple DuoNeb treatments and Solu-Medrol. 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, Housing: House Patient Tobacco Use Status: Never used Tobacco e-Cigarette/Vaping Use: Never Used Advance Directives: Yes Advance Directives Information Provided: No Advance Directives on File: No Current occupational status: retired Cognitive needs: No Hearing needs: No Vision needs: Yes Meds Allergies Allergy/AdvReac Type Severity Reaction Status Date / Time rofecoxib [From Vioxx] Allergy Intermediate went into Verified 12/16/22 14:03 CHF Penicillins Allergy Mild mold Verified 12/16/22 18:55 allergy penicillin V Allergy Unknown mold Verified 12/16/22 14:03 allergy NSAIDS (Non-Steroidal Allergy raises Verified 12/16/22 14:03 Anti-Inflamma cratinine level clarithromycin [From Biaxin] AdvReac Mild UPSET Verified 12/16/22 18:55 STOMACH meperidine [From Demerol] AdvReac Mild cofusion Verified 12/16/22 18:55 ineffective pain med Active Medications: Current Medications Pharmacy Consult (Consult Rx Perform Med Rec) 1 each MISCELLANE ONCE PRN PRN Reason: Consult order Home Medications Medication Instructions Recorded Confirmed Last Taken Type bupropion HCl 300 mg 24 hr tablet, 300 mg PO QAM 07/21/22 12/16/22 Unknown History extended release escitalopram oxalate 20 mg tablet 20 mg PO DAILY 07/21/22 12/16/22 Unknown Histo ry gabapentin 100 mg capsule 100 mg PO TID PRN knee pain 07/21/22 12/16/22 Unknown History ropinirole 4 mg tablet 4 mg PO BID 07/21/22 12/16/22 Unknown History Physical Exam Vital Signs and Narrative: Vital Signs: Last Vital Signs Temp 98 F 12/16/22 15:25 Pulse 105 H 12/16/22 18:56 Resp 19 12/16/22 18:56 BP 170/104 H 12/16/22 15:25 Pulse Ox 91 L 12/16/22 18:56 O2 Del Method 12/16/22 18:56 BMI result Body Mass Index 38.2 Middle-aged female lying in bed in mild distress Neck supple, no JVD Tachycardic with regular rhythm, S1-S2 heard Bilateral wheezing without crackles Abdomen soft nontender, no guarding, no rigidity Patient is awake, alert and oriented to self, place, time and person ; no focal motor deficit Psych: Normal mood No pedal edema Results Labs 12/16/22 15:47 12/16/22 15:47 Labs: Laboratory Results - last 24 hr 12/16/22 12/16/22 12/16/22 15:47 15:47 15:47 MCV 89.0 MCH 28.7 MCHC 32.3 RDW 14.2 Plt Count 299 MPV 8.6 L Immature Gran % (Auto) 0.4 Neut % (Auto) 64.1 Lymph % (Auto) 25.9 [place] % (Auto) 5.2 Eos % (Auto) 3.8 Baso % (Auto) 0.6 Lymph # (Auto) 2.6 [place] # (Auto) 0.5 Eos # (Auto) 0.4 Baso # (Auto) 0.1 Abs Immat Gran (auto) 0.04 H Absolute Neuts (auto) 6.5 Absolute Nucleated RBC 0.000 Nucleated RBC % (auto) 0.0 Anion Gap 18 Estim Creat Clear Calc 51.5 Estimated GFR 49 Random Glucose 118 H Lactic Acid Calcium 9.3 Magnesium 2.1 Total Bilirubin 0.4 Direct Bilirubin < 0.2 AST 16 ALT 17 Alkaline Phosphatase 114 Troponin I High Sens 4.9 D Total Protein 7.8 Albumin 4.4 Influenza Type A (PCR) Influenza Type B (PCR) RSV RNA Qual (PCR) SARS-CoV-2 RNA (RT-PCR) 12/16/22 12/16/22 15:47 16:14 MCV MCH MCHC RDW Plt Count MPV Immature Gran % (Auto) Neut % (Auto) Lymph % (Auto) [place] % (Auto) Eos % (Auto) Baso % (Auto) Lymph # (Auto) [place] # (Auto) Eos # (Auto) Baso # (Auto) Abs Immat Gran (auto) Absolute Neuts (auto) Absolute Nucleated RBC Nucleated RBC % (auto) Anion Gap Estim Creat Clear Calc Estimated GFR Random Glucose Lactic Acid 1.5 Calcium Magnesium Total Bilirubin Direct Bilirubin AST ALT Alkaline Phosphatase Troponin I High Sens Total Protein Albumin Influenza Type A (PCR) NEGATIVE Influenza Type B (PCR) NEGATIVE RSV RNA Qual (PCR) NEGATIVE SARS-CoV-2 RNA (RT-PCR) NEGATIVE Imaging Radiologist's Impressions: Impressions Chest X-Ray 12/16/22 15:56 IMPRESSION: Unremarkable examination. Chest CTA 12/16/22 18:21 IMPRESSION: No evidence of PE. No evidence aortic dissection or aneurysm. The lungs are clear. VTE: negative Assessment and Plan (1) SOB (shortness of breath): Status: Acute (2) Wheezing: Status: Acute Plan This is a 72-year-old female with pertinent history of seasonal bronchitis, mood disorder, mixed hyperlipidemia, essential hypertension, uvt-znjljfn-iwnphciwc diabetes mellitus who presents to the emergency department for evaluation of dyspnea. #. Acute respiratory distress due to exacerbation of seasonal bronchitis: Will admit patient and continue systemic steroids. Scheduled and p.r.nDe Sidhu. Initiating azithromycin for pleiotropic effect. Will benefit from PFTs as an outpatient #. Mixed hyperlipidemia: On statin #. Sbi-pvioldl-qpdlopcci diabetes mellitus: Initiating Accu-Cheks with sliding scale insulin #. STEPHEN: Continue CPAP at bedtime #. Obesity: Counseled regarding diet and exercise #. Mood disorder: Continue home mood stabilizers DVT prophylaxis: Lovenox 40 mg daily Full code Cardiac diet Time Spent With Patient Time: Total time managing care of this patient today ____ minutes. Quality Stroke Does the patient have a stroke diagnosis?: No VTE Prior VTE?: No VTE Risk Level:: Medical - moderate - high VTE Device Contraindication: Treatment Not Indicated VTE Drug Contraindication: N/A - Med Ordered
[2022-12-16 20:34] VITALS: BP 147/59; PULSE 101; O2SAT 96
[2022-12-16 20:35] VITALS: PULSE 106; RESP 20; O2SAT 94
--- NOTE | 2022-12-16 20:47 | PC.NURSE ---
Assumed care of pt. at 1900. Pt. A&O X3. Pt. reports a lingering cough with sputum production. and SOB. Pt. hr slightly elevated d/t breathing treatment. Pt. denies pain. Pt. resting comfortably in bed, pending admission to [facility], bed 371. Called Kera for report, she's in with another pt. and will call back.
--- NOTE | 2022-12-16 21:14 | PC.NURSE ---
Gave report to RN. Arnie Cote to transport up to [place] [id number].
[2022-12-16 22:06] VITALS: BP 127/87; PULSE 111; RESP 18; TEMP 37; O2SAT 95
[2022-12-16 22:10] VITALS: BMI 38.0
[2022-12-16] MEDS: buPROPion HCl XL 300 MG TAB.ER.24H PO (22:29)
[2022-12-16] MEDS: methylPREDNISolone Sod Succ 40 MG/ML VIAL IVPUSH (22:29)
[2022-12-16] MEDS: 0.9 % Sodium Chloride Flush 3 ML SYRINGE IVFLUSH (22:30)
[2022-12-16 22:46] LABS: Glucose, Whole Blood 287 mg/dL (60-115)
[2022-12-16] MEDS: Benzonatate 100 MG CAPSULE 200 MG PO (23:02)
[2022-12-16] MEDS: rOPINIRole HCL 2 MG TABLET 4 MG PO (23:02)
[2022-12-17] VITALS (9 sets, daily range): BP systolic 119–149; BP diastolic 58–79; PULSE 77–112; RESP 16–18; TEMP 36.4–36.6; O2SAT 93–96
--- NOTE | 2022-12-17 03:48 | PC.NURSE ---
Assumed care at 2200, pt arrived from the ED, alert and oriented, plan of car was instrucrted, pt refused to take Lispro for sliding scale coverage and also refusing her Lovenox as she prefer Heparin instead, Dr. Virgen was updated.
[2022-12-17 06:37] LABS: Basophils Percent Auto 0.1 % (0-2); Hematocrit 39.2 % (37.0-47.0); Hemoglobin 12.7 g/dl (12.0-16.0); Imm Gran Pct Auto 0.9 % (0.0-0.4); Lymphocytes Absolute Auto 0.8 X10*3/uL (1.2-4.9); Lymphocytes Percent Auto 7.8 % (20-40); MANUAL DIFF FLAG SCAN; Mean Corpuscular HGB Conc 32.4 g/dl (31.0-35.0); Mean Corpuscular Hemoglobin 28.8 pg (27.0-33.0); Mean Corpuscular Volume 88.9 fL (80.0-98.0); Mean Platelet Volume 9.1 fL (9.4-12.3); Monocytes Absolute Auto 0.1 X10*3/uL (0.1-1.2); Monocytes Percent Auto 1.1 % (2-11); Neutrophils Absolute Auto 9.7 x10*3/uL (2.0-8.3); Neutrophils Percent Auto 90.1 % (45-73); Platelet Count 267 X10*3/uL (160-400); Red Blood Count 4.41 X10*6/uL (4.20-5.50); Red Cell Distribution Width 14.3 % (11.0-16.0); SCAN SMEAR FLAG 1; White Blood Count 10.8 X10*3/uL (4.8-10.8)
[2022-12-17 06:54] LABS: SLIDE REVIEW VERIFIED
[2022-12-17 07:01] LABS: Anion Gap 16 (12-20); Blood Urea Nitrogen 25 mg/dL (9-16); Calcium 8.6 mg/dL (8.4-10.2); Carbon Dioxide 24 mmol/L (22-29); Chloride 100 mmol/L (96-108); Creatinine Clr Calc Pharmacy 49.6; Estimated Glomerular Filt Rate 47; Glucose Random 227 mg/dL (60-115); Potassium 4.1 mmol/L (3.3-5.1); Sodium 136 mmol/L (135-145)
[2022-12-17 07:12] LABS: Glucose, Whole Blood 206 mg/dL (60-115)
[2022-12-17] MEDS: 0.9 % Sodium Chloride Flush 3 ML SYRINGE IVFLUSH ×3 (08:26→20:46)
[2022-12-17] MEDS: Escitalopram Oxalate 20 MG TABLET PO (08:26)
[2022-12-17] MEDS: rOPINIRole HCL 2 MG TABLET 4 MG PO ×2 (08:26→20:45)
[2022-12-17] MEDS: metFORMIN HCl ER 750 MG TAB.ER.24H PO (08:26)
[2022-12-17] MEDS: buPROPion HCl XL 300 MG TAB.ER.24H PO (08:26)
[2022-12-17] MEDS: methylPREDNISolone Sod Succ 40 MG/ML VIAL IVPUSH ×2 (08:26→20:45)
[2022-12-17] MEDS: Benzonatate 100 MG CAPSULE 200 MG PO (08:26)
[2022-12-17] MEDS: Metoprolol Succinate ER 25 MG TAB.ER.24H PO (08:27)
[2022-12-17] MEDS: Atorvastatin Calcium 40 MG TABLET PO (08:28)
[2022-12-17] MEDS: Insulin Lispro 100 UNIT/ML 3 ML VIAL SUBCUT ×4 (09:16→20:45)
--- NOTE | 2022-12-17 10:15 | HO.PM.IMPN ---
Subjective Subjective Date of Service: 12/17/22 Interval History: cc: sob interval history:still sob Physical Exam Vital Signs: Vital Signs: Last Vital Signs Temp 97.9 F 12/17/22 06:56 Pulse 110 H 12/17/22 07:29 Resp 18 12/17/22 07:29 BP 135/79 12/17/22 06:56 Pulse Ox 95 12/17/22 06:56 O2 Del Method 12/17/22 06:56 O2 Flow Rate 2 12/16/22 20:34 BMI result Body Mass Index 38.0 General: AO X 3, no acute distress Resp: end exp wheezes bilateral, no accessory muscles used CVS: S1,S2,RRR GI: soft, non tender, non distended Neuro: motor grossly intact, alert Psych: appropriate affect, appropriate insight Objective Data Active Medications Acetaminophen (Acetaminophen Supp 650 Mg Supp.Rect) 650 mg OR Q6H PRN PRN Reason: Pain, Mild (Pain Scale 1-3) Atorvastatin Calcium (Atorvastatin Calcium 40 Mg Tablet) 40 mg PO DAILY [facility] Last Admin: 12/17/22 08:28 Dose: 40 mg Documented By: HELEN Azithromycin (Azithromycin 500 Mg Tablet) 500 mg PO Q24H [facility] Benzonatate (Benzonatate 100 Mg Capsule) 200 mg PO TID PRN PRN Reason: Cough Last Admin: 12/17/22 08:26 Dose: 200 mg Documented By: HELEN Bupropion HCl (Bupropion Hcl Xl 300 Mg Tab.Er.24h) 300 mg PO DAILY [facility] Last Admin: 12/17/22 08:26 Dose: 300 mg Documented By: HELEN Albuterol Sulfate 2.5 mg/ (Ipratropium [place] 0.5 mg) 0 mg INHALE Q4H PRN PRN Reason: Wheezing Last Admin: 12/17/22 01:46 Dose: 2.5 each Documented By: AURY Albuterol Sulfate 2.5 mg/ (Ipratropium [place] 0.5 mg) 0 mg INHALE RQ4H [facility] Enoxaparin Sodium (Enoxaparin Sodium 40 Mg/0.4 Ml Syringe) 40 mg SUBCUT Q24H [facility] Last Admin: 12/16/22 23:03 Dose: Not Given Documented By: NIURKA Non-Admin Reason: Patient Refused Comments: Dr. Param dunne Escitalopram Oxalate (Escitalopram Oxalate 20 Mg Tablet) 20 mg PO DAILY [facility] Last Admin: 12/17/22 08:26 Dose: 20 mg Documented By: HELEN Gabapentin (Gabapentin 100 Mg Capsule) 100 mg PO TID PRN PRN Reason: knee pain Glucose (Glucose Gel 15 Gm Gel..Gram.) 15 gm PO Q15M PRN; Protocol PRN Reason: per Hypoglycemia Standing Ord. Dextrose (D10) 250 mls @ 750 mls/hr IV Q15M PRN; Protocol PRN Reason: per Hypoglycemia Standing Ord. Insulin Human Lispro (Insulin Lispro 100 Unit/Ml 3 Ml Vial) 0 unit SUBCUT QIDACHS [facility]; Protocol Last Admin: 12/17/22 09:16 Dose: 4 unit Documented By: HELEN Melatonin (Melatonin 3 Mg Tablet) 6 mg PO BEDTIME PRN PRN Reason: Insomnia Methylprednisolone Sodium Succinate (Methylprednisolone Sod Succ 40 Mg/Ml Vial) 40 mg IVPUSH Q12H [facility] Last Admin: 12/17/22 08:26 Dose: 40 mg Documented By: HELEN Metoprolol Succinate (Metoprolol Succinate Er 25 Mg Tab.Er.24h) 25 mg PO DAILY [facility]; Protocol Last Admin: 12/17/22 08:27 Dose: 25 mg Documented By: HELEN Ondansetron HCl (Ondansetron Hcl 4 Mg/2 Ml Vial) 4 mg IVPUSH Q8H PRN PRN Reason: Nausea and Vomiting Pharmacy Consult (Consult Rx Perform Med Rec) 1 each MISCELLANE ONCE PRN PRN Reason: Consult order Ropinirole HCl (Ropinirole Hcl 2 Mg Tablet) 4 mg PO BID [facility] Last Admin: 12/17/22 08:26 Dose: 4 mg Documented By: HELEN Sodium Chloride (0.9 % Sodium Chloride Flush 3 Ml Syringe) 3 ml IVFLUSH QSHIFT [facility] Last Admin: 12/17/22 08:26 Dose: 3 ml Documented By: HELEN Labs 12/17/22 05:53 12/17/22 05:53 Labs: Laboratory Results - last 24 hr 12/16/22 12/16/22 12/16/22 15:47 15:47 15:47 MCV 89.0 MCH 28.7 MCHC 32.3 RDW 14.2 Plt Count 299 MPV 8.6 L Immature Gran % (Auto) 0.4 Neut % (Auto) 64.1 Lymph % (Auto) 25.9 [place] % (Auto) 5.2 Eos % (Auto) 3.8 Baso % (Auto) 0.6 Lymph # (Auto) 2.6 [place] # (Auto) 0.5 Eos # (Auto) 0.4 Baso # (Auto) 0.1 Abs Immat Gran (auto) 0.04 H Absolute Neuts (auto) 6.5 Absolute Nucleated RBC 0.000 Nucleated RBC % (auto) 0.0 Smear Tech's Comments Anion Gap 18 Estim Creat Clear Calc 51.5 Estimated GFR 49 POC Glucose Random Glucose 118 H Lactic Acid Calcium 9.3 Magnesium 2.1 Total Bilirubin 0.4 Direct Bilirubin < 0.2 AST 16 ALT 17 Alkaline Phosphatase 114 Troponin I High Sens 4.9 D Total Protein 7.8 Albumin 4.4 Influenza Type A (PCR) Influenza Type B (PCR) RSV RNA Qual (PCR) SARS-CoV-2 RNA (RT-PCR) 12/16/22 12/16/22 12/16/22 15:47 16:14 22:43 MCV MCH MCHC RDW Plt Count MPV Immature Gran % (Auto) Neut % (Auto) Lymph % (Auto) [place] % (Auto) Eos % (Auto) Baso % (Auto) Lymph # (Auto) [place] # (Auto) Eos # (Auto) Baso # (Auto) Abs Immat Gran (auto) Absolute Neuts (auto) Absolute Nucleated RBC Nucleated RBC % (auto) Smear Tech's Comments Anion Gap Estim Creat Clear Calc Estimated GFR POC Glucose 287 H Random Glucose Lactic Acid 1.5 Calcium Magnesium Total Bilirubin Direct Bilirubin AST ALT Alkaline Phosphatase Troponin I High Sens Total Protein Albumin Influenza Type A (PCR) NEGATIVE Influenza Type B (PCR) NEGATIVE RSV RNA Qual (PCR) NEGATIVE SARS-CoV-2 RNA (RT-PCR) NEGATIVE 12/17/22 12/17/22 12/17/22 05:53 05:53 06:56 MCV 88.9 MCH 28.8 MCHC 32.4 RDW 14.3 Plt Count 267 MPV 9.1 L Immature Gran % (Auto) 0.9 H Neut % (Auto) 90.1 H Lymph % (Auto) 7.8 L [place] % (Auto) 1.1 L Eos % (Auto) 0.0 Baso % (Auto) 0.1 Lymph # (Auto) 0.8 L [place] # (Auto) 0.1 Eos # (Auto) 0.0 Baso # (Auto) 0.0 Abs Immat Gran (auto) 0.10 H Absolute Neuts (auto) 9.7 H Absolute Nucleated RBC 0.000 Nucleated RBC % (auto) 0.0 Smear Tech's Comments VERIFIED Anion Gap 16 Estim Creat Clear Calc 49.6 Estimated GFR 47 POC Glucose 206 H Random Glucose 227 H Lactic Acid Calcium 8.6 D Magnesium Total Bilirubin Direct Bilirubin AST ALT Alkaline Phosphatase Troponin I High Sens Total Protein Albumin Influenza Type A (PCR) Influenza Type B (PCR) RSV RNA Qual (PCR) SARS-CoV-2 RNA (RT-PCR) Assessment and Plan (1) SOB (shortness of breath): Status: Acute Plan 72F PMH seasonal bronchitis, mood disorder, mixed hyperlipidemia, essential hypertension, clp-gjacqvy-dhtqcxume diabetes mellitus presented with sob. acute bronchitis steroids, nebs, azithro HLD statin DM hold metformin until 48hr post contast insulin, pocs STEPHEN cpap at bedtime obesity weight loss mood disorder lexapro, buspar DVT prophylaxis:? Lovenox 40 mg daily Full code reason for continued hospitalization:sob Time Spent With Patient Time: Total time managing care of this patient today ____ minutes. Quality Stroke Does the patient have a stroke diagnosis?: No VTE Prior VTE?: No VTE Risk Level:: Medical - moderate - high VTE Device Contraindication: Treatment Not Indicated VTE Drug Contraindication: N/A - Med Ordered
[2022-12-17 11:12] LABS: Glucose, Whole Blood 193 mg/dL (60-115)
[2022-12-17] MEDS: Acetaminophen 325 MG TABLET 650 MG PO (12:23)
[2022-12-17] MEDS: guaiFENesin 200 MG/10 ML 10 ML LIQUID PO ×2 (12:23→17:47)
[2022-12-17 16:13] LABS: Glucose, Whole Blood 254 mg/dL (60-115)
--- NOTE | 2022-12-17 16:20 | MHC.CM.PN ---
Addendum entered by Donna Maruqez 12/19/22 10:17: CM MET WITH PT BRIEFLY ON 12/18/22 PT REPORTED IT WAS NOT A GOOD TIME PT REPORTS SHE LIVES WITH HER AND IS INDEPENDENT WITH CARE SHE HAS NO SERVICES AND A NEBULIZER FOR DME PT REPORTS SHE HAS A HCP AT HOME SHE IS COVID VAX AND BOOSTED OBSERVATION NOTICE DELIVERED PT WILL DC HOME TODAY WITH NO SERVICES FAMILY TO TRANSPORT Original Note: CM ATTEMPTED TO SEE PT TWICE FIRST PT WAS RECEIVING NURSING CARE THE SECOND TIME PT WAS ON THE PHONE AND REQUESTED TO DELAY INTAKE CM WILL MEET WITH PT TOMORROW
[2022-12-17] MEDS: Azithromycin 500 MG TABLET PO (17:07)
[2022-12-17 20:13] LABS: Glucose, Whole Blood 240 mg/dL (60-115)
[2022-12-18] VITALS (10 sets, daily range): BP systolic 109–125; BP diastolic 53–59; PULSE 81–95; RESP 16–20; TEMP 36.1–36.9; O2SAT 94–99
[2022-12-18] MEDS: guaiFENesin 200 MG/10 ML 10 ML LIQUID PO ×3 (04:02→19:02)
[2022-12-18 07:25] LABS: Glucose, Whole Blood 188 mg/dL (60-115)
[2022-12-18 07:28] LABS: Hematocrit 37.7 % (37.0-47.0); Hemoglobin 12.4 g/dl (12.0-16.0); Mean Corpuscular HGB Conc 32.9 g/dl (31.0-35.0); Mean Corpuscular Hemoglobin 29.2 pg (27.0-33.0); Mean Corpuscular Volume 88.9 fL (80.0-98.0); Mean Platelet Volume 9.2 fL (9.4-12.3); Platelet Count 307 X10*3/uL (160-400); Red Blood Count 4.24 X10*6/uL (4.20-5.50); Red Cell Distribution Width 14.7 % (11.0-16.0); White Blood Count 17.1 X10*3/uL (4.8-10.8)
[2022-12-18] MEDS: rOPINIRole HCL 2 MG TABLET 4 MG PO ×2 (07:52→20:41)
[2022-12-18] MEDS: methylPREDNISolone Sod Succ 40 MG/ML VIAL IVPUSH ×2 (07:52→20:41)
[2022-12-18] MEDS: Metoprolol Succinate ER 25 MG TAB.ER.24H PO (07:52)
[2022-12-18] MEDS: buPROPion HCl XL 300 MG TAB.ER.24H PO (07:52)
[2022-12-18] MEDS: Insulin Lispro 100 UNIT/ML 3 ML VIAL SUBCUT ×4 (07:53→20:41)
[2022-12-18] MEDS: Atorvastatin Calcium 40 MG TABLET PO (07:53)
[2022-12-18] MEDS: 0.9 % Sodium Chloride Flush 3 ML SYRINGE IVFLUSH ×3 (07:53→20:41)
[2022-12-18] MEDS: Escitalopram Oxalate 20 MG TABLET PO (07:53)
[2022-12-18 08:19] LABS: Anion Gap 15 (12-20); Blood Urea Nitrogen 27 mg/dL (9-16); Calcium 8.8 mg/dL (8.4-10.2); Carbon Dioxide 26 mmol/L (22-29); Chloride 102 mmol/L (96-108); Creatinine Clr Calc Pharmacy 60.7; Estimated Glomerular Filt Rate 59; Glucose Fasting 172 mg/dL (60-99); Potassium 4.4 mmol/L (3.3-5.1); Sodium 139 mmol/L (135-145)
--- NOTE | 2022-12-18 09:52 | P.PNIM_ITS ---
Subjective Subjective Date of Service: 12/18/22 Interval History: sob improving Physical Exam Vital Signs: Vital Signs: Last Vital Signs Temp 97 F 12/18/22 07:36 Pulse 84 12/18/22 08:18 Resp 20 12/18/22 08:18 BP 125/58 L 12/18/22 07:36 Pulse Ox 98 12/18/22 07:36 O2 Del Method 12/18/22 07:36 O2 Flow Rate 2 12/16/22 20:34 BMI result Body Mass Index 38.0 General: AO X 3, no acute distress Resp: CTA bilateral, no accessory muscles used CVS: S1,S2,RRR GI: soft, non tender, non distended Neuro: motor grossly intact, alert Psych: appropriate affect, appropriate insight Objective Data Active Medications Acetaminophen (Acetaminophen 325 Mg Tablet) 650 mg PO Q6H PRN PRN Reason: mild pain Last Admin: 12/17/22 12:23 Dose: 650 mg Documented By: HELEN Atorvastatin Calcium (Atorvastatin Calcium 40 Mg Tablet) 40 mg PO DAILY [facility] Last Admin: 12/18/22 07:53 Dose: 40 mg Documented By: EUNICE Azithromycin (Azithromycin 500 Mg Tablet) 500 mg PO Q24H [facility] Last Admin: 12/17/22 17:07 Dose: 500 mg Documented By: HELEN Benzonatate (Benzonatate 100 Mg Capsule) 200 mg PO TID PRN PRN Reason: Cough Last Admin: 12/17/22 08:26 Dose: 200 mg Documented By: HELEN Bupropion HCl (Bupropion Hcl Xl 300 Mg Tab.Er.24h) 300 mg PO DAILY [facility] Last Admin: 12/18/22 07:52 Dose: 300 mg Documented By: EUNICE Albuterol Sulfate 2.5 mg/ (Ipratropium [place] 0.5 mg) 0 mg INHALE Q4H PRN PRN Reason: Wheezing Last Admin: 12/17/22 01:46 Dose: 2.5 each Documented By: AURY Albuterol Sulfate 2.5 mg/ (Ipratropium [place] 0.5 mg) 0 mg INHALE RQ4H [facility] Last Admin: 12/18/22 08:15 Dose: 2.5 each Documented By: IZA Enoxaparin Sodium (Enoxaparin Sodium 40 Mg/0.4 Ml Syringe) 40 mg SUBCUT Q24H [facility] Last Admin: 12/17/22 20:52 Dose: Not Given Documented By: VAHE Non-Admin Reason: Patient Refused Escitalopram Oxalate (Escitalopram Oxalate 20 Mg Tablet) 20 mg PO DAILY [facility] Last Admin: 12/18/22 07:53 Dose: 20 mg Documented By: EUNICE Gabapentin (Gabapentin 100 Mg Capsule) 100 mg PO TID PRN PRN Reason: knee pain Glucose (Glucose Gel 15 Gm Gel..Gram.) 15 gm PO Q15M PRN; Protocol PRN Reason: per Hypoglycemia Standing Ord. Guaifenesin (Guaifenesin 200 Mg/10 Ml 10 Ml Liquid) 10 ml PO Q4H PRN PRN Reason: cough Last Admin: 12/18/22 08:19 Dose: 10 ml Documented By: EUNICE Dextrose (D10) 250 mls @ 750 mls/hr IV Q15M PRN; Protocol PRN Reason: per Hypoglycemia Standing Ord. Insulin Human Lispro (Insulin Lispro 100 Unit/Ml 3 Ml Vial) 0 unit SUBCUT QI DACHS [facility]; Protocol Last Admin: 12/18/22 07:53 Dose: 2 unit Documented By: EUNICE Melatonin (Melatonin 3 Mg Tablet) 6 mg PO BEDTIME PRN PRN Reason: Insomnia Methylprednisolone Sodium Succinate (Methylprednisolone Sod Succ 40 Mg/Ml Vial) 40 mg IVPUSH Q12H [facility] Last Admin: 12/18/22 07:52 Dose: 40 mg Documented By: EUNICE Metoprolol Succinate (Metoprolol Succinate Er 25 Mg Tab.Er.24h) 25 mg PO DAILY [facility]; Protocol Last Admin: 12/18/22 07:52 Dose: 25 mg Documented By: EUNICE Ondansetron HCl (Ondansetron Hcl 4 Mg/2 Ml Vial) 4 mg IVPUSH Q8H PRN PRN Reason: Nausea and Vomiting Pharmacy Consult (Consult Rx Perform Med Rec) 1 each MISCELLANE ONCE PRN PRN Reason: Consult order Ropinirole HCl (Ropinirole Hcl 2 Mg Tablet) 4 mg PO BID [facility] Last Admin: 12/18/22 07:52 Dose: 4 mg Documented By: EUNICE Sodium Chloride (0.9 % Sodium Chloride Flush 3 Ml Syringe) 3 ml IVFLUSH QSHIFT [facility] Last Admin: 12/18/22 07:53 Dose: 3 ml Documented By: EUNICE Labs 12/18/22 06:14 12/18/22 06:14 Labs: Laboratory Results - last 24 hr 12/17/22 12/17/22 12/17/22 11:10 15:46 20:06 MCV MCH MCHC RDW Plt Count MPV Absolute Nucleated RBC Nucleated RBC % (auto) Anion Gap Estim Creat Clear Calc Estimated GFR POC Glucose 193 H 254 H 240 H Fasting Glucose Calcium 12/18/22 12/18/22 12/18/22 06:14 06:14 07:18 MCV 88.9 MCH 29.2 MCHC 32.9 RDW 14.7 Plt Count 307 MPV 9.2 L Absolute Nucleated RBC 0.000 Nucleated RBC % (auto) 0.0 Anion Gap 15 Estim Creat Clear Calc 60.7 Estimated GFR 59 POC Glucose 188 H Fasting Glucose 172 H Calcium 8.8 Microbiology Microbiology Results: Microbiology 12/16/22 16:14 Blood Culture - Preliminary Blood - Venous No growth after 24 hours. 12/16/22 15:47 Blood Culture - Preliminary Blood - Venous No growth after 24 hours. Assessment and Plan (1) SOB (shortness of breath): Status: Acute Plan 72F PMH seasonal bronchitis, mood disorder, mixed hyperlipidemia, essential hypertension, omo-lzpqwvd-qzoxnrwkk diabetes mellitus presented with sob. acute bronchitis steroids, nebs, azithro improving, but still sob HLD statin DM hold metformin until 48hr post contast insulin, pocs STEPHEN cpap at bedtime obesity weight loss mood disorder lexapro, buspar DVT prophylaxis:? Lovenox 40 mg daily Full code reason for continued hospitalization:sob Time Spent With Patient Time: Total time managing care of this patient today ____ minutes. Quality Stroke Does the patient have a stroke diagnosis?: No VTE Prior VTE?: No VTE Risk Level:: Medical - moderate - high VTE Device Contraindication: Treatment Not Indicated VTE Drug Contraindication: N/A - Med Ordered
[2022-12-18 11:09] LABS: Glucose, Whole Blood 163 mg/dL (60-115)
[2022-12-18] MEDS: Acetaminophen 325 MG TABLET 650 MG PO (13:33)
[2022-12-18 16:47] LABS: Glucose, Whole Blood 194 mg/dL (60-115)
[2022-12-18] MEDS: Azithromycin 500 MG TABLET PO (17:10)
[2022-12-18 20:41] LABS: Glucose, Whole Blood 172 mg/dL (60-115)
[2022-12-19 00:16] VITALS: BP 143/65; PULSE 72; RESP 18; TEMP 36.8; O2SAT 98
[2022-12-19 03:46] VITALS: PULSE 82; RESP 18; O2SAT 98
[2022-12-19] MEDS: guaiFENesin 200 MG/10 ML 10 ML LIQUID PO (05:09)
[2022-12-19 07:16] LABS: Hematocrit 38.5 % (37.0-47.0); Hemoglobin 12.2 g/dl (12.0-16.0); Mean Corpuscular HGB Conc 31.7 g/dl (31.0-35.0); Mean Corpuscular Hemoglobin 28.9 pg (27.0-33.0); Mean Corpuscular Volume 91.2 fL (80.0-98.0); Mean Platelet Volume 9.4 fL (9.4-12.3); Platelet Count 296 X10*3/uL (160-400); Red Blood Count 4.22 X10*6/uL (4.20-5.50); Red Cell Distribution Width 14.7 % (11.0-16.0); White Blood Count 12.1 X10*3/uL (4.8-10.8)
[2022-12-19 07:42] VITALS: PULSE 92; RESP 20; O2SAT 99
[2022-12-19 07:44] LABS: Anion Gap 16 (12-20); Blood Urea Nitrogen 30 mg/dL (9-16); Calcium 8.6 mg/dL (8.4-10.2); Carbon Dioxide 24 mmol/L (22-29); Chloride 101 mmol/L (96-108); Creatinine Clr Calc Pharmacy 54.8; Estimated Glomerular Filt Rate 53; Glucose Fasting 257 mg/dL (60-99); Potassium 4.3 mmol/L (3.3-5.1); Sodium 137 mmol/L (135-145)
[2022-12-19 07:56] VITALS: BP 123/60; PULSE 80; RESP 18; TEMP 36.3; O2SAT 96
[2022-12-19 07:57] LABS: Glucose, Whole Blood 181 mg/dL (60-115)
[2022-12-19] MEDS: 0.9 % Sodium Chloride Flush 3 ML SYRINGE IVFLUSH ×2 (08:11→17:12)
[2022-12-19] MEDS: buPROPion HCl XL 300 MG TAB.ER.24H PO (08:12)
[2022-12-19] MEDS: Escitalopram Oxalate 20 MG TABLET PO (08:12)
[2022-12-19] MEDS: methylPREDNISolone Sod Succ 40 MG/ML VIAL IVPUSH (08:12)
[2022-12-19] MEDS: Metoprolol Succinate ER 25 MG TAB.ER.24H PO (08:12)
[2022-12-19] MEDS: Atorvastatin Calcium 40 MG TABLET PO (08:12)
[2022-12-19] MEDS: Insulin Lispro 100 UNIT/ML 3 ML VIAL SUBCUT ×2 (08:12→17:11)
[2022-12-19] MEDS: rOPINIRole HCL 2 MG TABLET 4 MG PO (08:13)
--- NOTE | 2022-12-19 10:04 | P.DS_ITS ---
DS: Providers Provider Date of Service: 12/19/22 Date of admission: 12/16/22 20:07 Primary care physician: Ami Aponte MD DS: Diagnosis Discharge Diagnosis (1) SOB (shortness of breath): Status: Acute DS: Summary Hospital Course Hospital Course: from initial hpi: This is a 72-year-old female with pertinent history of seasonal bronchitis, mood disorder, mixed hyperlipidemia, essential hypertension, [id number] diabetes mellitus who presents to the emergency department for evaluation of dyspnea.? Patient states every time it gets cold outside, she has episodes of bronchitis which involves trouble breathing and wheezing.? Patient 1st experienced symptoms about 10 days ago when she went to urgent care.? She was prescribed p.o. prednisone and antibiotics.? Patient completed the course yesterday and this morning when she got up, patient had severe dyspnea, worse with exertion and significant wheezing.? Also has been having cough with intermittent sputum production.? Has never been diagnosed with asthma or COPD.? No history of smoking in the past.? Patient denies fever, chills, chest discomfort, palpitations, abdominal pain, changes in urinary or bowel habits. In the emergency department, patient with significant wheezing despite multiple DuoNeb treatments and Solu-Medrol. hospital course: Patient was admitted for acute bronchitis. She was treated with steroids, nebulizers, azithromycin symptoms significantly improved. She will be disc harged home on prednisone taper and 3 more days of azithromycin. For hyperlipidemia she was continued on statin. For diabetes she was treated with insulin while inpatient, will restart metformin on discharge. For STEPHEN she will continue CPAP at bedtime. For obesity weight loss is recommended. From mood disorder she was continued on Lexapro and buspar. Time Spent with Patient Time attestation: Total time managing care of this patient today ____ minutes. Discharge coordination time: Greater than 30 minutes Quality: Safe Use of Opioids Does Pt have an Active Cancer Diagnosis on the Problem List?: No Quality: Stroke Does the patient have a stroke diagnosis?: No Physical Exam Vital Signs: Vital Signs: Last Vital Signs Temp 97.3 F 12/19/22 07:56 Pulse 80 12/19/22 07:56 Resp 18 12/19/22 07:56 BP 123/60 12/19/22 07:56 Pulse Ox 96 12/19/22 07:56 O2 Del Method 12/19/22 07:56 O2 Flow Rate 2 12/16/22 20:34 BMI result Body Mass Index 38.0 General: AO X 3, no acute distress Resp: CTA bilateral, no accessory muscles used CVS: S1,S2,RRR GI: soft, non tender, non distended Neuro: motor grossly intact, alert Psych: appropriate affect, appropriate insight DS: Data Data Completed and Pending Labs on day of discharge: Laboratory Results - last 24 hr 12/18/22 12/18/22 12/18/22 11:02 16:41 20:35 WBC RBC Hgb Hct MCV MCH MCHC RDW Plt Count MPV Absolute Nucleated RBC Nucleated RBC % (auto) Sodium Potassium Chloride Carbon Dioxide Anion Gap BUN Creatinine Estim Creat Clear Calc Estimated GFR POC Glucose 163 H 194 H 172 H Fasting Glucose Calcium 12/19/22 12/19/22 12/19/22 05:55 05:55 07:53 WBC 12.1 H RBC 4.22 Hgb 12.2 Hct 38.5 MCV 91.2 MCH 28.9 MCHC 31.7 RDW 14.7 Plt Count 296 MPV 9.4 Absolute Nucleated RBC 0.000 Nucleated RBC % (auto) 0.0 Sodium 137 Potassium 4.3 Chloride 101 Carbon Dioxide 24 Anion Gap 16 BUN 30 H Creatinine 1.03 Estim Creat Clear Calc 54.8 Estimated GFR 53 POC Glucose 181 H Fasting Glucose 257 H Calcium 8.6 Preliminary micro results at discharge 12/16/22 16:14 Blood Culture - Preliminary Blood - Venous No growth after 48 hours. 12/16/22 15:47 Blood Culture - Preliminary Blood - Venous No growth after 48 hours. Discharge Plan Discharge Anticipated Discharge Date/Time: 12/19/22 09:59 Patient Disposition: Home, Self-Care Discharge Diagnosis: bronchitis Referrals: Ami Aponte MD [Primary Care Provider] - 1 Week Discharge Medications: New azithromycin 500 mg Tablet 500 mg PO Q24H Qty: 3 0RF prednisone 10 mg tablet 40 mg PO DAILY Qty: 21 0RF Rx Instructions: 40mg daily for 3 days, then 20mg daily for 3 days, then 10mg daily for 3 days Continued (DME) OneTouch Ultra Test Strip See Rx Instructions .Route Qty: 100 3RF Rx Instructions: 1 qd (DME) blood-glucose meter [OneTouch Ultra2 Meter] Kit See Rx Instructions .Route Qty: 1 0RF Rx Instructions: qd (DME) lancets [OneTouch Delica Lancets] 33 gauge misc See Rx Instructions .Route Qty: 100 3RF Rx Instructions: test blood sugar once a day metoprolol succinate 25 mg tablet extended release 24 hr 25 mg PO DAILY Qty: 90 3RF metformin 750 mg tablet extended release 24 hr 750 mg PO DAILY Qty: 90 3RF atorvastatin 40 mg tablet 40 mg PO DAILY Qty: 90 0RF ropinirole 4 mg tablet 4 mg PO BID escitalopram oxalate 20 mg tablet 20 mg PO DAILY bupropion HCl 300 mg tablet extended release 24 hr 300 mg PO QAM gabapentin 100 mg capsule 100 mg PO TID PRN (Reason: knee pain) albuterol sulfate [Ventolin HFA] 90 mcg/actuation HFA aerosol inhaler 1 inh inhalation QID PRN (Reason: shortness of breath or wheezing) Qty: 8.5 1RF Discharge Orders: Discharge Order (Routine); Ordered 12/19/22 Ordered By: Piter Deutsch Diet: Advance to usual diet Activity on Discharge: As tolerated Stand Alone Forms: Patient Portal Discharge page Care Plan Goals: recovery Health Concerns: bronchitis Plan of Treatment: prednisone taper and 3 more days of azithro Assessment: see above
[2022-12-19] MEDS: guaiFENesin DM 100/10/5 ML 5 ML SYRUP PO (10:49)
[2022-12-19 11:20] LABS: Glucose, Whole Blood 132 mg/dL (60-115)
[2022-12-19] MEDS: guaiFEN/Codeine SF 200/20/10ML 10 ML LIQUID 5 ML PO (13:39)
[2022-12-19 15:50] VITALS: PULSE 87; RESP 20; O2SAT 98
[2022-12-19 16:43] VITALS: BP 119/58; PULSE 88; RESP 18; TEMP 36.4; O2SAT 96
[2022-12-19 16:53] LABS: Glucose, Whole Blood 214 mg/dL (60-115)
[2022-12-19] MEDS: Azithromycin 500 MG TABLET PO (17:12)
== END 2022-12-19 17:59 | disposition home or self-care (01) ==
LOC: HO.ED 19:50 → HO.EDOVER 20:16 → HO.S3 20:26
PROVIDERS: Physician Assistant; Admitting Provider Student in an Organized Health Care Education/Training Program; Emergency Provider Emergency Medicine; PCP Internal Medicine; Visit Provider Internal Medicine
DX: J20.9 Acute bronchitis, unspecified (principal); R06.02 Shortness of breath; R06.2 Wheezing; R00.0 Tachycardia, unspecified; Z20.822 Contact with and (suspected) exposure to COVID-19; E11.9 Type 2 diabetes mellitus without complications; I10 Essential (primary) hypertension; E78.5 Hyperlipidemia, unspecified; G47.33 Obstructive sleep apnea (adult) (pediatric); E66.9 Obesity, unspecified; Z68.38 Body mass index [BMI] 38.0-38.9, adult; Z86.73 Personal history of transient ischemic attack (TIA), and cerebral infarction without residual deficits; Z99.89 Dependence on other enabling machines and devices; Z79.02 Long term (current) use of antithrombotics/antiplatelets; Z79.84 Long term (current) use of oral hypoglycemic drugs
CPT/HCPCS: 0241U; 36415; 71045; 71275; 80048; 80076; 82947; 83605; 83735; 84484; 85025; 85027; 87040; 93005; 94640; 94660; 96365; 96366; 96367; 96374; 96376; 99221; 99285; J0456; J2920; J2930; J3475; Q9967

== ENCOUNTER 2023-07-29 06:05 | Outpatient (REF) | payer MEDICARE, OTHER, SELFPAY ==
[2023-07-29 12:21] LABS: Alanine Aminotransferase 18 U/L (0-31); Albumin Level 4.1 g/dL (3.5-5.0); Alkaline Phosphatase 102 U/L (39-117); Anion Gap 15 (12-20); Aspartate Amino Transferase 18 U/L (5-31); Bilirubin Total 0.5 mg/dL (0.0-1.0); Blood Urea Nitrogen 21 mg/dL (9-16); Carbon Dioxide 27 mmol/L (22-29); Chloride 100 mmol/L (96-108); Cholesterol 149 mg/dL (<200); Estimated Glomerular Filt Rate > 60; Glucose Fasting 117 mg/dL (60-99); HDL Cholesterol 43 mg/dL (>40); LDL Cholesterol Calculated 76 mg/dL (<100); Potassium 3.8 mmol/L (3.3-5.1); Sodium 138 mmol/L (135-145); Total Protein 7.5 g/dL (6.5-8.0); Triglycerides 154 mg/dL (<150)
[2023-07-29 12:36] LABS: Vitamin D 25-OH Total 16.3 ng/mL (>30)
== END 2023-07-29 06:06 | disposition home or self-care (01) ==
LOC: HO.HMGCLDS 06:05
PROVIDERS: PCP Internal Medicine; Visit Provider Internal Medicine
DX: E11.9 Type 2 diabetes mellitus without complications (principal); G45.9 Transient cerebral ischemic attack, unspecified; R00.0 Tachycardia, unspecified; E78.5 Hyperlipidemia, unspecified
CPT/HCPCS: 36415; 80053; 80061; 82306

== ENCOUNTER 2023-08-04 12:49 | Outpatient (AMB) | payer MEDICARE, OTHER, SELFPAY ==
--- NOTE | 2023-08-04 12:56 | A.OFFPC_ITS ---
Vital Signs 08/04/23 12:57 Height 5 ft 1.3 in Weight 228 lb BMI 42.7 BP 142/80 H Blood Pressure Location Lt brachial Position Sitting Pulse 82 Pulse Source Pulse Oximeter Pulse Oximetry (%) 96 Oxygen Delivery Method Room Air Intake Visit Reasons: Follow up Intake Note: Pt is here today for a follow up visit on DM. Allergies rofecoxib [From Vioxx] Allergy (Intermediate, Verified 08/04/23 13:02) went into CHF Penicillins Allergy (Mild, Verified 08/04/23 13:02) mold allergy NSAIDS (Non-Steroidal Anti-Inflamma Allergy (Verified 08/04/23 13:02) raises cratinine level clarithromycin [From Biaxin] Adverse Reaction (Mild, Verified 08/04/23 13:02) UPSET STOMACH meperidine [From Demerol] Adverse Reaction (Mild, Verified 08/04/23 13:02) cofusion ineffective pain med Medication List - Last Reconciled 08/04/23 by Ami Aponte MD albuterol sulfate 90 mcg/actuation (Ventolin HFA) 1 inh inhalation QID PRN atorvastatin 40 mg PO DAILY blood sugar diagnostic (Zoomingouch Ultra Test strips) 1 qd blood-glucose meter qd bupropion HCl 300 mg PO QAM escitalopram oxalate 20 mg PO DAILY gabapentin 100 mg PO TID PRN hydrocodone-homatropine 5-1.5 mg/5 mL (5 mL) (Hycodan) 5 mL PO Q4-6H PRN lancets (Showcase GigTouch Delica Lancets) test blood sugar once a day metformin ER 750 mg PO DAILY metoprolol succinate ER 25 mg PO DAILY ropinirole 4 mg PO BID Tobacco use date assessed: 08/04/23 Fall risk assessment: No Falls in past year Last assessed Fall Risk: 08/04/23 Dental Screening Dental Screen Date: 08/04/23 Did you have a dental visit in the last 12 months?: Yes Did you have a dental problem in the last 6 months where you did not have access to dental care?: No Was dental information given to patient?: Patient has dentist HPI Follow up HPI Details PATIENT PRESENTS FOR THE FOLLOW-UP OF TYPE 2 DIABETES HYPERTENSION HYPERLIPIDEMIA.. 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 Patient was seen by garment mender at [facility] for workup of possible asthma and had PFTs but results are not available yet. Patient denies cough shortness of breath or wheezing and has not been using inhalers. [facility] Medical History (Updated 08/04/23 @ 14:13 by Ami Aponte MD) Diabetes type 2, controlled Hyperlipidemia TIA (transient ischemic attack) Hx of respiratory syncytial virus infection Surgical History History of right salpingo-oophorectomy History of total replacement of right shoulder joint History of total right knee replacement Hx of laparoscopic gastric banding H/O lumpectomy Family History Father Hypertension Heart disease Mother Hypertension Osteoporosis Diabetes Mental health disorder Social History Household Members: Spouse Household Members Other:: retired nurse, , 2 daughters, 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 [id number] - PHQ-9 Billing: Patient declined-do not bill Source: Developed by Drs. Cory Gonzalez, Tracy Louis, Nestor Bill and colleagues, with an educational adela from [employer]. Thrive Questionnaire Date Thrive assessed: 08/04/23 What is your living situation today?: I choose not to answer this question Within the past 12 months, did the food you bought not last and you didn't have the money to get more?: I choose not to answer this question Within the past 12 months, did you worry whether your food would run out before you got money to buy more?: I choose not to answer this question Do you have trouble paying for medicines?: I choose not to answer this question Do you have trouble getting transportation to medical appointments?: I choose not to answer this question Do you have trouble paying your heating and electricity bill?: I choose not to answer this question Do you have trouble taking care of your child, family member or friend?: I choose not to answer this question Do you have trouble with day-to-day activities such as bathing, preparing meals, shopping, managing finances, etc.?: I choose not to answer this question Are you currently unemployed and looking for a job?: I choose not to answer this question Are you interested in more education?: I choose not to answer this question ANNMARIE-7 AMB Questionnaire ANNMARIE-7 Date ANNMARIE - 7 assessed: 08/04/23 Source: Developed by Drs. Cory Gonzalez, Tracy Louis, Nestor Bill and colleagues, with an educational adela from [employer]. ANNMARIE-7 Assessment Billing ANNMARIE-7 Assessment Tool: pt declined-do not bill Review of Systems Const All systems reviewed & are unremarkable except as noted in HPI and below Reports no additional complaints Eyes Reports no additional complaints ENT Reports no additional complaints Card Reports no additional complaints Resp Reports no additional complaints GI Reports no additional complaints Reports no additional complaints Physical exam (Primary Care) Vital Signs: Last Vital Signs Pulse 82 08/04/23 12:57 BP 142/80 H 08/04/23 12:57 Pulse Ox 96 08/04/23 12:57 Oxygen Delivery Method Room Air 08/04/23 12:57 BMI result Body Mass Index 42.7 Tobacco/Smoking Status: Tobacco use Status Tobacco use date assessed 08/04/23 08/04/23 13:04 Patient Tobacco Use Status Never used Tobacco 08/04/23 13:04 e-Cigarette/Vaping Use Never Used 08/04/23 12:57 Const General: no acute distress HENMT Head: Yes normal to inspection Ears: hearing grossly normal bilaterally General nose exam: Normal external nose present Face and sinus: Yes normal facial exam Mouth: Normal oral and palatal mucosa present Throat: Yes posterior oropharynx normal Eyes General: appearance normal, both eyes and all related structures Neck Neck: Yes no lymphadenopathy and Yes supple Resp Effort & Inspection: normal respiratory effort Auscultation: clear to auscultation bilaterally Cardio Rhythm: regular rhythm Heart sounds: S1 normal heart sound present and S2 normal heart sound present GI Inspection: Yes normal to inspection Results AMB Hemoglobin A1c AMB Hemoglobin A1c 6.6 % Last Edit by KARLA Rubalcava on 08/04/23 13:3 1 Assessment and Plan Assessment & Plan (1) H/O carotid endarterectomy: Comment: Left for 75% 12/23 [facility] Code(s): Z98.890 - Other specified postprocedural states Plan: Continue high dose of statin and 81 mg of aspirin follow-up with vascular surgeo n every 6 months (2) Vitamin D deficiency: Code(s): E55.9 - Vitamin D deficiency, unspecified Plan: Patient started taking vitamin-D supplement and the level will be checked in 1 month (3) Paroxysmal tachycardia, unspecified: Code(s): I47.9 - Paroxysmal tachycardia, unspecified (4) HTN (hypertension): Code(s): I10 - Essential (primary) hypertension Plan: Blood pressure is elevated today and metoprolol will be increased to 50 mg a day. Patient will follow-up in 1 month for blood pressure check (5) Hyperlipidemia: Comment: Started on Atorvastatin 40 mg Code(s): E78.5 - Hyperlipidemia, unspecified Plan: Continue atorvastatin (6) Diabetes type 2, controlled: Code(s): E11.9 - Type 2 diabetes mellitus without complications Plan: A1c is 6.6, ADA diet increase physical activity discussed with the patient. Metformin will be increased to 1500 mg. Orders: Orders Vitamin D 25-OH Total 1 Month E55.9 - Vitamin D deficiency, unspecified AMB Hemoglobin A1c Today Z13.9 - Encounter for screening, unspecified Medications: Changed From metformin ER 750 mg PO DAILY 90 tabs 3RF To metformin ER 1,500 mg (2 x 750 mg) PO DAILY 180 tabs 3RF From metoprolol succinate ER 25 mg PO DAILY 90 tabs 3RF To metoprolol succinate ER 50 mg (2 x 25 mg) PO DAILY 90 tabs 3RF Coding Level of Care Code Est Pt Level 4 (16743) Diagnoses H/O carotid endarterectomy Z98.890 Vitamin D deficiency E55.9 Paroxysmal tachycardia, unspecified I47.9 HTN (hypertension) I10 Hyperlipidemia E78.5 Diabetes type 2, controlled E11.9
[2023-08-04 12:57] VITALS: BP 142/80; PULSE 82; O2SAT 96; BMI 42.7
== END 2023-08-04 13:50 | disposition home or self-care (01) ==
PROVIDERS: PCP Internal Medicine; Visit Provider Internal Medicine
DX: Z98.890 Other specified postprocedural states (principal); E55.9 Vitamin D deficiency, unspecified; I47.9 Paroxysmal tachycardia, unspecified; I10 Essential (primary) hypertension; E78.5 Hyperlipidemia, unspecified; E11.9 Type 2 diabetes mellitus without complications; Z13.9 Encounter for screening, unspecified
CPT/HCPCS: 83036; 99214

== ENCOUNTER 2023-09-02 14:42 | Outpatient (REF) | payer MEDICARE, OTHER, SELFPAY ==
[2023-09-02 17:05] LABS: Vitamin D 25-OH Total 24.2 ng/mL (>30)
== END 2023-09-02 14:43 | disposition home or self-care (01) ==
LOC: HO.HMGCLDS 14:42
PROVIDERS: PCP Internal Medicine; Visit Provider Internal Medicine
DX: E55.9 Vitamin D deficiency, unspecified (principal)
CPT/HCPCS: 36415; 82306

== ENCOUNTER 2023-09-08 12:12 | Outpatient (AMB) | payer MEDICARE, OTHER, SELFPAY ==
--- NOTE | 2023-09-08 12:23 | MHC.PC.OV ---
Vital Signs 09/08/23 12:25 Weight 231 lb BP 120/78 Blood Pressure Location Rt brachial Position Sitting Pulse 74 Pulse Source Pulse Oximeter Pulse Oximetry (%) 98 Oxygen Delivery Method Room Air Intake Visit Reasons: One Month Follow up Allergies rofecoxib [From Vioxx] Allergy (Intermediate, Verified 09/08/23 12:25) went into CHF Penicillins Allergy (Mild, Verified 09/08/23 12:25) mold allergy NSAIDS (Non-Steroidal Anti-Inflamma Allergy (Verified 09/08/23 12:25) raises cratinine level clarithromycin [From Biaxin] Adverse Reaction (Mild, Verified 09/08/23 12:25) UPSET STOMACH meperidine [From Demerol] Adverse Reaction (Mild, Verified 09/08/23 12:25) cofusion ineffective pain med Medication List - Last Reconciled 09/08/23 by Ami Aponte MD albuterol sulfate 90 mcg/actuation (Ventolin HFA) 1 inh inhalation QID PRN atorvastatin 40 mg PO DAILY blood sugar diagnostic (eOriginaluch Ultra Test strips) 1 qd blood-glucose meter qd bupropion HCl 300 mg PO QAM cholecalciferol (vitamin D3) 25 mcg PO DAILY escitalopram oxalate 20 mg PO DAILY gabapentin 100 mg PO TID PRN hydrocodone-homatropine 5-1.5 mg/5 mL (5 mL) (Hycodan) 5 mL PO Q4-6H PRN lancets (eOriginaluch Delica Lancets) test blood sugar once a day metformin ER 1,500 mg (2 x 750 mg) PO DAILY metoprolol succinate ER 50 mg (2 x 25 mg) PO DAILY ropinirole 4 mg PO BID Tobacco use date assessed: 08/04/23 HPI One Month Follow up HPI Details Pt presents for f/u HTN/DM 2/hyperlipid, stable on meds. 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 Cory Gonzalez, Tracy Louis, Nestor Bill and colleagues, with an educational adela from [employer]. Review of Systems Const All systems reviewed & are unremarkable except as noted in HPI and below Reports no additional complaints Eyes Reports no additional complaints ENT Reports no additional complaints Card Reports no additional complaints Resp Reports no additional complaints GI Reports no additional complaints Reports no additional complaints Physical exam (Primary Care) Vital Signs: Last Vital Signs Pulse 74 09/08/23 12:25 BP 130/82 09/08/23 12:25 Pulse Ox 98 09/08/23 12:25 Oxygen Delivery Method Room Air 09/08/23 12:25 Tobacco/Smoking Status: Tobacco use Status Tobacco use date assessed 08/04/23 09/08/23 12:28 Patient Tobacco Use Status Never used Tobacco 09/08/23 12:28 e-Cigarette/Vaping Use Never Used 09/08/23 12:28 Thrive Assessment: Date of Thrive Assessment Date Thrive assessed 08/04/23 09/08/23 12:28 Const General: no acute distress HENMT Head: Yes normal to inspection Ears: hearing grossly normal bilaterally Face and sinus: Yes normal facial exam Eyes General: appearance normal, both eyes and all related structures Neck Neck: Yes supple Resp Effort & Inspection: normal respiratory effort Auscultation: clear to auscultation bilaterally Cardio Rhythm: regular rhythm Heart sounds: S1 normal heart sound present and S2 normal heart sound present GI Inspection: Yes normal to inspection Palpation (GI): Soft to palpation Percussion: Yes normal to percussion Auscultation: normal bowel sounds Assessment and Plan Assessment & Plan (1) Hyperlipidemia: Comment: Started on Atorvastatin 40 mg Code(s): E78.5 - Hyperlipidemia, unspecified Plan: CONT STATIN (2) HTN (hypertension): Code(s): I10 - Essential (primary) hypertension Plan: cont Metoprolol (3) Diabetes type 2, controlled: Comment: pt declined GLP 1 receptor agonist 09/24 Code(s): E11.9 - Type 2 diabetes mellitus without complications Plan: cont Metformin, ADA, increase exercise and weight loss, f/u 6 months (4) Vitamin D deficiency: Code(s): E55.9 - Vitamin D deficiency, unspecified Plan: add 1000 IU VIT D Orders: Orders Complete Blood Count Auto Diff 6 Months E11.9 - Type 2 diabetes mellitus without complications, E55.9 - Vitamin D deficiency, unspecified, E78.5 - Hyperlipidemia, unspecified, I10 - Essential (primary) hypertension Lipid Panel 6 Months E11.9 - Type 2 diabetes mellitus without complications, E55.9 - Vitamin D deficiency, unspecified, E78.5 - Hyperlipidemia, unspecified, I10 - Essential (primary) hypertension Hemoglobin A1c 6 Months E11.9 - Type 2 diabetes mellitus without complications, E55.9 - Vitamin D deficiency, unspecified, E78.5 - Hyperlipidemia, unspecified, I10 - Essential (primary) hypertension Microalbumin, Random (w Creat) 6 Months E11.9 - Type 2 diabetes mellitus without complications, E55.9 - Vitamin D deficiency, unspecified, E78.5 - Hyperlipidemia, unspecified, I10 - Essential (primary) hypertension Comprehensive [place]. Panel Fast 6 Months E11.9 - Type 2 diabetes mellitus without complications, E55.9 - Vitamin D deficiency, unspecified, E78.5 - Hyperlipidemia, unspecified, I10 - Essential (primary) hypertension Vitamin D 25-OH Total 6 Months E11.9 - Type 2 diabetes mellitus without complications, E55.9 - Vitamin D deficiency, unspecified, E78.5 - Hyperlipidemia, unspecified, I10 - Essential (primary) hypertension Medications: New cholecalciferol (vitamin D3) 25 mcg PO DAILY 90 tabs 1RF Coding Level of Care Code Est Pt Level 4 (97889) Diagnoses Hyperlipidemia E78.5 HTN (hypertension) I10 Diabetes type 2, controlled E11.9 Vitamin D deficiency E55.9
[2023-09-08 12:25] VITALS: BP 120/78; PULSE 74; O2SAT 98
== END 2023-09-08 13:46 | disposition home or self-care (01) ==
PROVIDERS: PCP Internal Medicine; Visit Provider Internal Medicine
DX: E78.5 Hyperlipidemia, unspecified (principal); I10 Essential (primary) hypertension; E11.9 Type 2 diabetes mellitus without complications; E55.9 Vitamin D deficiency, unspecified
CPT/HCPCS: 99214

== ENCOUNTER 2024-08-01 04:08 | Emergency (ER) | payer MEDICARE, OTHER, SELFPAY ==
--- NOTE | ~2024-08-01 | CT_ITS ---
EXAMINATION: CT CERVICAL SPINE WITHOUT CONTRAST; UNENHANCED CT OF THE HEAD. CLINICAL INFORMATION: Fall. Headache. COMPARISON: CT head 11/16/2022. TECHNIQUE: Routine unenhanced CT of the head with multiple coronal and sagittal reformatted images; routine unenhanced CT of the cervical spine with multiple coronal and sagittal reformatted images. This CT examination was performed using dose optimization techniques as appropriate, variously including the following: *Automated exposure control *Adjustment of mA and/or kV according to patient size (this includes techniques or standardized protocols for targeted exams where dose is matched to indication/reason for exam; i.e. extremities or head) *Use of iterative reconstruction technique DLP: 1179 mGy-cm FINDINGS: CT head: Scattered artifact emanates from a left-sided bone anchored hearing aid and partially obscures visualization of adjacent transaxial structures. Making allowances for artifact, no intracranial hemorrhage, tumors or acute infarcts noted. Mild diffuse commensurate prominence of the ventricles and sulci. No focal parenchymal lesions of the brain identified. Bilateral ocular lens replacements are visualized. No extracranial soft tissue inflammatory changes noted. No significant opacification of the visualized paranasal sinuses, mastoid air cells and middle ear cavities. CT cervical spine: No fractures or acute-appearing subluxations of the cervical spine. Multilevel intervertebral disc space narrowing, facet hypertrophy and posterior endplate osteophytosis of the cervical spine. No prevertebral fluid collections or soft tissue inflammatory changes. Dense right carotid bulb calcific atherosclerotic plaques. Mild left bulb calcific atherosclerotic plaques. The visualized lung apices are clear. CT/CT head/brain wo IV con IMPRESSION: CT HEAD: No acute intracranial abnormalities. CT CERVICAL SPINE: 1. No acute abnormalities. 2. Multilevel chronic spondylosis. 3. Dense right carotid bulb calcific atherosclerotic plaques. Electronically signed by: Lele Higgins MD 08/01/2024 05:21 AM EDT
--- NOTE | ~2024-08-01 | CT_ITS ---
EXAMINATION: CT CERVICAL SPINE WITHOUT CONTRAST; UNENHANCED CT OF THE HEAD. CLINICAL INFORMATION: Fall. Headache. COMPARISON: CT head 11/16/2022. TECHNIQUE: Routine unenhanced CT of the head with multiple coronal and sagittal reformatted images; routine unenhanced CT of the cervical spine with multiple coronal and sagittal reformatted images. This CT examination was performed using dose optimization techniques as appropriate, variously including the following: *Automated exposure control *Adjustment of mA and/or kV according to patient size (this includes techniques or standardized protocols for targeted exams where dose is matched to indication/reason for exam; i.e. extremities or head) *Use of iterative reconstruction technique DLP: 1179 mGy-cm FINDINGS: CT head: Scattered artifact emanates from a left-sided bone anchored hearing aid and partially obscures visualization of adjacent transaxial structures. Making allowances for artifact, no intracranial hemorrhage, tumors or acute infarcts noted. Mild diffuse commensurate prominence of the ventricles and sulci. No focal parenchymal lesions of the brain identified. Bilateral ocular lens replacements are visualized. No extracranial soft tissue inflammatory changes noted. No significant opacification of the visualized paranasal sinuses, mastoid air cells and middle ear cavities. CT cervical spine: No fractures or acute-appearing subluxations of the cervical spine. Multilevel intervertebral disc space narrowing, facet hypertrophy and posterior endplate osteophytosis of the cervical spine. No prevertebral fluid collections or soft tissue inflammatory changes. Dense right carotid bulb calcific atherosclerotic plaques. Mild left bulb calcific atherosclerotic plaques. The visualized lung apices are clear. CT/CT cervical spine wo IV con IMPRESSION: CT HEAD: No acute intracranial abnormalities. CT CERVICAL SPINE: 1. No acute abnormalities. 2. Multilevel chronic spondylosis. 3. Dense right carotid bulb calcific atherosclerotic plaques. Electronically signed by: Lele Higgins MD 08/01/2024 05:21 AM EDT
--- NOTE | 2024-08-01 04:27 | ED.GENADULT ---
HPI - General Adult General Chief complaint: Fall Stated complaint: FALL Time Seen by Provider: 08/01/24 04:15 Source: patient Limitations: no limitations History of Present Illness ED Provider: Dr. Anaya Arias HPI narrative: Patient comes to the emergency room via ambulance complaining of a fall. Patient states that she was walking back from the bathroom to her bed. Patient states she got a cramp in her left calf, patient lifted her leg and fell backwards. Patient states that she did not have chest pain or shortness of breath, no dizziness. Patient states that she landed hard backwards. Patient complaining of a laceration in the scalp posteriorly. Complaining of headache and mild neck pain. Patient refused collar. Paramedics gave to the patient 100 mcg of fentanyl prior to arrival. Patient denies pain anywhere else other than the headache, scalp and mild neck pain. Related Data Home Medications ?Medication ?Instructions ?Recorded ?Confirmed bupropion HCl 300 mg 24 hr tablet, 300 mg PO QAM 07/21/22 09/08/23 extended release escitalopram oxalate 20 mg tablet 20 mg PO DAILY 07/21/22 09/08/23 gabapentin 100 mg capsule 100 mg PO TID PRN knee pain 07/21/22 09/08/23 ropinirole 4 mg tablet 4 mg PO BID 07/21/22 09/08/23 Previous Rx's ?Medication ?Instructions ?Recorded atorvastatin 40 mg tablet 40 mg PO DAILY #90 tabs 11/03/22 albuterol sulfate 90 mcg/actuation 1 inh inhalation QID PRN shortness 12/08/22 aerosol inhaler (Ventolin HFA) of breath or wheezing #8.5 grams hydrocodone-homatropine 5 mg-1.5 5 ml PO Q4-6H PRN cough #200 mL 12/21/22 mg/5 mL (5 mL) oral syrup (Hycodan) blood sugar diagnostic ([employer] #100 ea 03/01/23 Ultra Test strips) blood-glucose meter #1 ea 03/01/23 lancets 33 gauge ([employer]ica #100 ea 03/01/23 Lancets) metoprolol succinate 25 mg 50 mg (2 x 25 mg) PO DAILY #90 tabs 08/04/23 tablet,extended release 24 hr metformin 750 mg tablet,extended 1,500 mg (2 x 750 mg) PO DAILY 08/05/23 release 24 hr #180 tabs cholecalciferol (vitamin D3) 25 25 mcg PO DAILY #90 tabs 09/08/23 mcg (1,000 unit) tablet cyclobenzaprine 5 mg tablet 5 mg PO TID PRN muscle spasm #10 08/01/24 tabs oxycodone 5 mg tablet 5 mg PO BID PRN pain #6 tabs 08/01/24 Allergies Allergy/AdvReac Type Severity Reaction Status Date / Time rofecoxib [From Vioxx] Allergy Intermediate went into Verified 08/01/24 04:46 CHF Penicillins Allergy Mild mold Verified 08/01/24 04:46 allergy NSAIDS (Non-Steroidal Allergy raises Verified 08/01/24 04:46 Anti-Inflamma cratinine level clarithromycin [From Biaxin] AdvReac Mild UPSET Verified 08/01/24 04:46 STOMACH meperidine [From Demerol] AdvReac Mild cofusion Verified 08/01/24 04:46 ineffective pain med Review of Systems Review of Systems: Constitutional : No Weight loss, No Fever, No Chills, No Night Sweats, No Fatigue, No Malaise ENT/Mouth : No Hearing loss, No Ear Pain, No Nasal Congestion, No Sinus Pain, No Hoarseness, No sore throat, No Rhinorrhea, No Swallowing Difficulty Eyes: No Eye Pain, No Swelling, No Redness, No Foreign Body, No Discharge, No Vision Changes Cardiovascular : No Chest Pain, No SOB, No Dyspnea on Exertion, No Orthopnea, No Edema, No Palpitations Respiratory : No Cough, No Sputum, No Wheezing, No Smoke Exposure, No Dyspnea Gastrointestinal : No Nausea, No Vomiting, No Diarrhea, No Constipation, No abdominal Pain, No Hematochezia, No Melena Genitourinary : no irregular bleeding, No Dysuria, No Urinary Frequency, No Hematuria, No Urinary Incontinence, No Urgency, No Flank Pain, No Urinary Flow Changes, No Hesitancy Musculoskeletal : Complaining of neck pain No joint pain, No Myalgias, No Joint Swelling Skin : Complaining of scalp laceration posteriorly Neuro : No Weakness, No Numbness, No Paresthesias, No Loss of Consciousness, No Dizziness, No Headache Psych : No Anxiety/Panic, No Depression, No SI/HI/AH/VH, No Social Issues, Heme/Lymph: No Bruising, No Bleeding,No Lymphadenopathy Endocrine : No Polyuria, No Polydipsia, No Temperature Intolerance [facility] Past Medical History Medical History Diabetes type 2, controlled Hyperlipidemia TIA (transient ischemic attack) Hx of respiratory syncytial virus infection Surgical History History of right salpingo-oophorectomy History of total replacement of right shoulder joint History of total right knee replacement Hx of laparoscopic gastric banding H/O lumpectomy Family History Family History Father Hypertension Heart disease Mother Hypertension Osteoporosis Diabetes Mental health disorder Social History Social History Household Members: Spouse Household Members Other:: retired nurse, , 2 daughters, 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, Housing: House Alcohol intake: current Alcohol intake frequency: holidays/special occasions only Patient Tobacco Use Status: Never used Tobacco e-Cigarette/Vaping Use: Never Used Advance Directives: No Advance Directives on File: No Advance Directives Date on File: 12/16/22 Do you have a plan to hurt others: No Plan Current occupational status: retired Cognitive needs: No Hearing needs: No Vision needs: Yes Physical Exam ED Vital Signs: Vital Signs - 24 hr 08/01/24 04:42 Temperature 98 F Pulse Rate 114 H Respiratory Rate 16 Blood Pressure 172/71 H Pulse Oximetry 98 Oxygen Delivery Method Room Air BMI result Body Mass Index 42.1 Const Other: Appearance: Alert. Oriented X3. No acute distress. Eyes: Pupils equal, round and reactive to light. ENT: Pharynx normal. Neck: Normal inspection. Neck supple. No lymph nodes noted. No crepitus, pain to palpation on the lateral aspects of the neck, no C-spine tenderness or palpable step-offs CVS: Normal heart rate and rhythm. Pulses normal. Normal S1 and S2 Respiratory: No respiratory distress. Breath sounds normal. No Wheezing. No rales Abdomen: Soft and nontender. No rigidity. No distention. Skin: Skin warm and dry. There is approximately 6 cm laceration in the scalp posteriorly. Extremities: No lower extremity edema. No Lacerations. No Rash Neuro: Oriented X 3. No motor deficit. No sensory deficit. Moving all extremities. No slurred speech. CN 2 through 12 grossly intact Psych: calm, cooperative, normal affect Medications Administered Discontinued Medications Generic Name Dose Route Start Last Admin Trade Name Laquita PRN Reason Stop Dose Admin Acetaminophen 975 mg 08/01/24 04:27 08/01/24 06:05 Acetaminophen 325 Mg Tablet PO 08/01/24 04:28 Not Given ONCE ONE Lidocaine/Epinephrine 20 ml 08/01/24 04:22 08/01/24 06:04 Lidocaine Hcl 1%/Epi 1:100,000 20 Ml Vial INFILTRATI 08/01/24 04:23 20 ml ONCE ONE Administration Oxycodone HCl 5 mg 08/01/24 05:57 08/01/24 06:02 Oxycodone Hcl Immed Release 5 Mg Tablet PO 08/01/24 05:58 5 mg ONCE ONE Administration Procedures Laceration Laceration 1: Site: scalp Description: linear Depth: simple, single layer Local Anesthetic: lidocaine 1% and with epi Amount of anesthesia used (mL): 10 Pre-repair: wound explored Skin layer closed with: other (Isaac) Number of sutures: 9 Technique: simple, interrupted Medical Decision Making Medical Decision Making MDM Narrative: My interpretation of head CT, no intracranial bleed. -patient needed 9 isaac -patient was given oxycodone. Patient declined Tylenol Differential Diagnosis Differential Diagnoses: The differential diagnosis associated with the presentation includes (Intracranial bleed, cervical spine injury, contusion, concussion, laceration, abrasion) Admission/Observation Consideration of admission/observation: Escalation of care including admission/observation considered (Given patient's initial presentation, observation was considered) Independent Interpretation I performed an independent interpretation of an: CT Scan Radiology Impression Discussion of test interpretation with radiology: I have reviewed the radiologist's reading. Radiologist Impression: CT head: Scattered artifact emanates from a left-sided bone anchored hearing aid and partially obscures visualization of adjacent transaxial structures. Making allowances for artifact, no intracranial hemorrhage, tumors or acute infarcts noted. Mild diffuse commensurate prominence of the ventricles and sulci. No focal parenchymal lesions of the brain identified. Bilateral ocular lens replacements are visualized. No extracranial soft tissue inflammatory changes noted. No significant opacification of the visualized paranasal sinuses, mastoid air cells and middle ear cavities. CT cervical spine: No fractures or acute-appearing subluxations of the cervical spine. Multilevel intervertebral disc space narrowing, facet hypertrophy and posterior endplate osteophytosis of the cervical spine. No prevertebral fluid collections or soft tissue inflammatory changes. Dense right carotid bulb calcific atherosclerotic plaques. Mild left bulb calcific atherosclerotic plaques. The visualized lung apices are clear. Critical Care Time Critical Care Time Critical Care Time: Yes Total Critical Care Time: 45 Attestation: I have personally provided critical care time. Time includes review of lab data, radiology results, discussion with consultants, and monitoring for potential decompensation. Intervention performed as documented. Discharge Plan Discharge Clinical Impression: Fall, Laceration of scalp Patient Disposition: Home, Self-Care Instructions: Staple Care (ED), Fall Prevention (ED) Additional Instructions: Your isaac need to be removed in 7-10 days. Do not take oxycodone and cyclobenzaprine at the same time, it may increase your risk of falling. Please follow-up with your primary care physician tomorrow. If you have any worsening or new symptoms, please return to the emergency room or call 911 Prescriptions: New oxycodone 5 mg tablet 5 mg PO BID PRN (Reason: pain) Qty: 6 0RF Rx Instructions: Partial Fill upon patient request. cyclobenzaprine 5 mg tablet 5 mg PO TID PRN (Reason: muscle spasm) Qty: 10 0RF No Action hydrocodone-homatropine [Hycodan] 5-1.5 mg/5 mL (5 mL) syrup 5 ml PO Q4-6H PRN (Reason: cough) Qty: 200 0RF Rx Instructions: Partial Fill upon patient request. (DME) OneTouch Ultra Test Strip See Rx Instructions .Route Qty: 100 3RF Rx Instructions: 1 qd (DME) blood-glucose meter Kit See Rx Instructions .Route Qty: 1 0RF Rx Instructions: qd (DME) lancets [[employer] Lancets] 33 gauge misc See Rx Instructions .Route Qty: 100 3RF Rx Instructions: test blood sugar once a day metformin 750 mg tablet extended release 24 hr 1,500 mg PO DAILY Qty: 180 3RF atorvastatin 40 mg tablet 40 mg PO DAILY Qty: 90 0RF ropinirole 4 mg tablet 4 mg PO BID escitalopram oxalate 20 mg tablet 20 mg PO DAILY bupropion HCl 300 mg tablet extended release 24 hr 300 mg PO QAM gabapentin 100 mg capsule 100 mg PO TID PRN (Reason: knee pain) albuterol sulfate [Ventolin HFA] 90 mcg/actuation HFA aerosol inhaler 1 inh inhalation QID PRN (Reason: shortness of breath or wheezing) Qty: 8.5 1RF metoprolol succinate 25 mg tablet extended release 24 hr 50 mg PO DAILY Qty: 90 3RF cholecalciferol (vitamin D3) 25 mcg (1,000 unit) tablet 25 mcg PO DAILY Qty: 90 1RF Print Language: Setswana
[2024-08-01 04:42] VITALS: BP 158/85; BP 172/71; PULSE 114; PULSE 120; RESP 16; TEMP 36.6; O2SAT 98; BMI 42.1
--- NOTE | 2024-08-01 04:56 | PC.NURSE ---
Pt a&o, able to speak in full sentence, pt refusing Tylenol at this time, provider aware. pure wick in place, pt taken to Ct Scan, pt at the bedside.
[2024-08-01] MEDS: oxyCODONE HCl Immed Release 5 MG TABLET PO (06:02)
[2024-08-01] MEDS: Lidocaine HCl 1%/Epi 1:100,000 20 ML VIAL INFILTRATI (06:04)
--- NOTE | 2024-08-01 06:05 | PC.NURSE ---
Provider into medicate pt, clean laceration, staple laceration, medicated with po medication for pain managment.
--- NOTE | 2024-08-01 06:22 | PC.NURSE ---
Reviewed discharge instruction with pt, pt verbalized understanding, pt a&o, able to respond appropriately and able to speak in full sentence. No sign of distress, awaiting to pick her up .
[2024-08-01 06:24] VITALS: BP 172/55; PULSE 94; RESP 20; TEMP 37; O2SAT 98
[2024-08-01 06:56] VITALS: BP 172/82; PULSE 94; RESP 20; TEMP 37; O2SAT 100
== END 2024-08-01 06:58 | disposition home or self-care (01) ==
PROVIDERS: Emergency Provider Emergency Medicine; PCP Internal Medicine
DX: S01.01XA Laceration without foreign body of scalp, initial encounter (principal); W18.30XA Fall on same level, unspecified, initial encounter; Y93.9 Activity, unspecified; Y92.9 Unspecified place or not applicable; Y99.9 Unspecified external cause status; M79.662 Pain in left lower leg; R51.9 Headache, unspecified; M54.2 Cervicalgia; R07.9 Chest pain, unspecified; R06.02 Shortness of breath; E78.5 Hyperlipidemia, unspecified; E11.9 Type 2 diabetes mellitus without complications; Z86.73 Personal history of transient ischemic attack (TIA), and cerebral infarction without residual deficits; Z79.899 Other long term (current) drug therapy
CPT/HCPCS: 12011; 70450; 72125; 99284; J2004

== ENCOUNTER 2024-08-06 08:11 | Outpatient (AMB) | payer MEDICARE, OTHER, SELFPAY ==
[2024-08-06 08:21] VITALS: BP 122/80; PULSE 72; O2SAT 98; BMI 42.1
--- NOTE | 2024-08-06 08:21 | AM.OFFWIN_ITS ---
Intake Vital Signs 08/06/24 08:21 Height 5 ft 2 in Weight 230 lb BMI 42.1 BP 122/80 Blood Pressure Location Rt brachial Position Sitting Pulse 72 Pulse Source Pulse Oximeter Pulse Oximetry (%) 98 Intake Visit Reasons: EP fell 08/01, stitches in head, dizzy, fatigue Intake Note: pt is here for dizziness fatigue, patient fell on the 30th and has stitches in her head Patient Tobacco Use Status: Never used Tobacco Allergies rofecoxib [From Vioxx] Allergy (Intermediate, Verified 08/06/24 08:22) went into CHF Penicillins Allergy (Mild, Verified 08/06/24 08:22) mold allergy NSAIDS (Non-Steroidal Anti-Inflamma Allergy (Verified 08/06/24 08:22) raises cratinine level clarithromycin [From Biaxin] Adverse Reaction (Mild, Verified 08/06/24 08:22) UPSET STOMACH meperidine [From Demerol] Adverse Reaction (Mild, Verified 08/06/24 08:22) cofusion ineffective pain med Do you need a note to return to daycare/school/sports/work: No HPI EP fell 08/01, stitches in head, dizzy, fatigue HPI Details This note is constructed using voice recognition software. While every effort has been made to ensure accuracy, motors and generators inspector errors may have been included. The patient is a 74 year old female who presents to the clinic today with severe headache, photosensitivity, confusion, fatigue after a fall occurring several days prior. The fall was on 08/01/24 where she struck the corner of the wall with the back of her head and then side of head on the left on the sink. She was seen in the ER and had judy as well as imaging which was negative for bleed. On 08/04/24 she developed dizziness that made her feel unsteady on her feet. Since then the dizziness has intensified, and now involved photosensitivity, and some intermittent episodes of confusion and what she reports to be as extreme anger and agitation. She has not had any additional falls, and has been primarily inactive since the initial fall. She reports that she has no energy to move around, or accomplish anything. 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, Housing: House Alcohol intake: current Alcohol intake frequency: holidays/special occasions only Patient Tobacco Use Status: Never used Tobacco e-Cigarette/Vaping Use: Never Used Advance Directives Date on File: 12/16/22 Current occupational status: retired Cognitive needs: No Hearing needs: No Vision needs: Yes Review of Systems Const All systems reviewed & are unremarkable except as noted in HPI and below Physical Exam Vital Signs: Last Vital Signs Pulse 72 08/06/24 08:21 BP 122/80 08/06/24 08:21 Pulse Ox 98 08/06/24 08:21 BMI result Body Mass Index 42.1 Const General: cooperative and well developed Eyes General: appearance normal, both eyes and all related structures Neck Neck: Yes normal visual inspection Resp Effort & Inspection: normal respiratory effort and able to speak in complete sentences Auscultation: clear to auscultation bilaterally Cardio Rate: regular rate Rhythm: regular rhythm Heart sounds: normal S1 and S2 Skin Other: Posterior scalp judy intact, minimally surrounding erythema, without warmth or discharge. General skin exam: no rashes or lesions noted Assessment & Plan Assessment & Plan (1) Dizziness: Code(s): R42 - Dizziness and giddiness Plan: Etiology unclear, however with worsening symptoms in setting of recent fall with trauma to the head, and intermittent, increasing confusion, patient would warrant emergent evaluation and potentially imaging. EMS contacted for transfer to the hospital. Plan See above for full details and plan. Coding Level of Care Code Est Pt Level 4 (13833) Diagnoses Dizziness R42
== END 2024-08-06 09:22 | disposition home or self-care (01) ==
PROVIDERS: PCP Internal Medicine; Visit Provider Registered Nurse
DX: R42 Dizziness and giddiness (principal)

== ENCOUNTER → 2024-08-06 08:11 | Outpatient (BNVA) | payer MEDICARE, OTHER, SELFPAY | PROVIDERS: PCP Internal Medicine; Visit Provider Registered Nurse | DX: R42 Dizziness and giddiness (principal) | CPT/HCPCS: 99212 ==

== ENCOUNTER 2024-08-09 14:44 | Outpatient (AMB) | payer MEDICARE, OTHER, SELFPAY ==
--- NOTE | 2024-08-09 14:49 | AM.OFFWIN_ITS ---
Intake Vital Signs 3 08/09/24 14:57 Weight 230 lb BP 130/88 Blood Pressure Location Rt brachial Position Sitting Pulse 110 H Pulse Source Pulse Oximeter Pulse Oximetry (%) 98 Oxygen Delivery Method Room Air Intake Visit Reasons: EP staple removal Intake Note: Patient here to have judy removed from back of head. 9 judy placed. Patient Tobacco Use Status: Never used Tobacco Allergies rofecoxib [From Vioxx] Allergy (Intermediate, Verified 08/09/24 14:56) went into CHF Penicillins Allergy (Mild, Verified 08/09/24 14:56) mold allergy NSAIDS (Non-Steroidal Anti-Inflamma Allergy (Verified 08/09/24 14:56) raises cratinine level clarithromycin [From Biaxin] Adverse Reaction (Mild, Verified 08/09/24 14:56) UPSET STOMACH meperidine [From Demerol] Adverse Reaction (Mild, Verified 08/09/24 14:56) cofusion ineffective pain med Do you need a note to return to daycare/school/sports/work: No HPI HPI Comments 2 History of Present Illness0 Details Patient is a 74-year-old female here to have her judy removed. She tells me then on August 01, she had a fall in her bathroom and hit her head. She was brought to [facility] where they applied 9 judy to the back of her scalp. So she is here to remove them, she tells me it is a little bit itchy but otherwise have not been an issue. [facility] Medical History Diabetes type 2, controlled Hyperlipidemia TIA (transient ischemic attack) Hx of respiratory syncytial virus infection Surgical History History of right salpingo-oophorectomy History of total replacement of right shoulder joint History of total right knee replacement Hx of laparoscopic gastric banding H/O lumpectomy Family History Father Hypertension Heart disease Mother Hypertension Osteoporosis Diabetes Mental health disorder Social History Household Members: Spouse Household Members Other:: retired nurse, , 2 daughters, 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, Housing: House Alcohol intake: current Alcohol intake frequency: holidays/special occasions only Patient Tobacco Use Status: Never used Tobacco e-Cigarette/Vaping Use: Never Used Advance Directives Date on File: 12/16/22 Current occupational status: retired Cognitive needs: No Hearing needs: No Vision needs: Yes Review of Systems Const All systems reviewed & are unremarkable except as noted in HPI and below Physical Exam Vital Signs: Last Vital Signs Pulse 110 H 08/09/24 14:57 BP 130/88 08/09/24 14:57 Pulse Ox 98 08/09/24 14:57 Oxygen Delivery Method Room Air 08/09/24 14:57 Const General: cooperative, healthy appearing, comfortable, no acute distress and well developed Orientation/consciousness: patient oriented x3 Limitations: no limitations HEENT Head: Yes normal to inspection Head images: [address], wound is clean dry and intact with a small scab 2. staple in place, wound is clean dry and intact with a small scab 3. staple in place, wound is clean dry and intact with a small scab 4. staple in place, wound is clean dry and intact with a small scab 5. staple in place, wound is clean dry and intact with a small scab 6. staple in place, wound is clean dry and intact with a small scab 7. staple in place, wound is clean dry and intact with a small scab 8. staple in place, wound is clean dry and intact with a small scab 9. staple in place, wound is clean dry and intact with a small scab Neck Neck: Yes normal visual inspection and Yes supple Neuro General: patient oriented x3 Assessment & Plan Assessment & Plan (1) Removal of staple: Code(s): Z48.02 - Encounter for removal of sutures Plan: Removed 9 judy with no problem, confirmed with the ED note that 9 judy were placed. Wound is clean dry and intact with a small scab, recommended using Aquaphor twice daily. Heart rate was a little bit elevated @110BPM, patient was telling me about her experience in the emergency department and was very upset with her care there. Heart rate is likely elevated secondary to her discussing the issue. 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 Plan See above Coding Level of Care Code Est Pt Level 3 (41028) Diagnoses Removal of staple Z48.02
[2024-08-09 14:57] VITALS: BP 130/88; PULSE 110; O2SAT 98
== END 2024-08-09 15:33 | disposition home or self-care (01) ==
PROVIDERS: PCP Internal Medicine; Visit Provider Physician Assistant
DX: Z48.02 Encounter for removal of sutures (principal)

== ENCOUNTER → 2024-08-09 14:44 | Outpatient (BNVA) | payer MEDICARE, OTHER, SELFPAY | PROVIDERS: PCP Internal Medicine; Visit Provider Physician Assistant | DX: Z48.02 Encounter for removal of sutures (principal) | CPT/HCPCS: 99212 ==

== ENCOUNTER 2024-11-24 06:42 | Outpatient (REF) | payer MEDICARE, OTHER, SELFPAY ==
--- OUTSIDE RECORDS SUMMARY | 2024-11-24 06:43 | XMS_ITS | Continuity of Care Document ---
Author Organization [facility] Address [address] [place] [id number] Care Team Providers Care Change Of Address Clerk Name Role Phone Ami Aponte MD Primary Care Physician [phone] Encounter [facility] [place] Date(s): 09/24/24 - 10/24/24 [facility] [address] [place] [id number] Encounter Type: Triage Allergies, Adverse Reactions, Alerts Substance Criticality Severity Reaction Reaction Severity Status penicillins MOLD ALLERGY Activ e Biaxin TEARS UP STOMACH Act darrian Demerol HCl is not effective A ctive Vioxx WENT INTO CHF Active NSAIDs raise creatine Activ e Immunizations Given and Recorded Vaccine Date Status Refusal Reason pneumococcal 13-valent vaccine 1 07/14/23 Given influenza virus vaccine, inactivated 2 07/14/23 Gi rashaad influenza virus vaccine, inactivated 3 10/23/22 Gi rashaad SARS-CoV-2 (COVID-19) mRNA BNT-162b2 vac 11/20/20 Recorded pneumococcal 23-valent vaccine 11/11/14 Given 1Result Comment: [id number] 2Result Comment: [facility][note 3] [id number] 3Early/Late Reason: Early/Late Reason: Other : med requested Medications albuterol-ipratropium 3 mg-0.5 mg/3 ml inhalation solution 3 mL, BAND Nebulizer, 4 times a day, PRN Wheezing/Shortness of Breath, Dx: Bronchitis with wheezing, reactive airway disease, suspicious of asthma, # 180 mL, 3 Refills, Maintenance, 01/21/23 10:37:00 AM EDT, Inhalation Solution, Partial fill upon patient request if the prescription is for a scheduleII opioid drug. Start Date: 01/21/23 Status: Ordered Quantity: 180.0 Unit: mL Repeat number: 4 albuterol-ipratropium 3 mg-0.5 mg/3 ml inhalation solution 3 mL, BAND Nebulizer, 4 times a day, PRN Wheezing/Shortness of Breath, # 180 mL, 0 Refills, Maintenance, 01/21/23 12:57:00 PM EDT, Inhalation Solution, [facility]/pharmacy #[id number], Partial fill upon patient request if the prescription is for a schedule II opioid drug., 3 mL BAND Nebulizer 4 times a day,x30 da ys,PRN:Wheezing/Shortness of Breath, 158, cm, 01/21/23 7:26:00 EDT, Height, 98, kg, 01/15/23 20:10:00 EDT, Dry Weight Start Date: 01/21/23 Stop Date: 02/20/23 Status: Ordered Quantity: 180.0 Unit: mL Repeat number: 1 aspirin 81 mg oral delayed release tablet 81 mg, By Mouth, Daily, # 90 tablet, Refills 0, Tot. Refills 0, Maintenance, 10/23/22 3:36:00 PM EST, Print Requisition, Partial fill upon patient request if the prescription is for a schedule II opioid drug. Start Date: 10/23/22 Stop Date: 01/21/23 Status: Ordered Quantity: 90.0 Unit: tablet Repeat number: 1 atorvastatin 40 mg oral tablet 1 tablet = 40 mg, By Mouth, Daily at bedtime, # 90 tablet, 3 Refills, Maintenance, 11/18/22 1:11:00 PM EST, Tablet, MEDS BY MAIL , Partial fill upon patient request if the prescription is for aschedule II opioid drug., 160.02, cm, 11/13/22 12:04:00 EST, Height, 100, kg, 11/12/22 18:43:00 EST, Dry Weight Start Date: 11/18/22 Stop Date: 11/13/23 Status: Ordered Quantity: 90.0 Unit: tablet Repeat number: 4 buPROPion 300 mg/24 hours (XL) oral tablet, extended release 1 tablet = 300 mg, By Mouth, Daily, # 30 tablet, 0 Refills, Maintenance, 01/16/23 1:40:00 PM EDT, ERTablet, Partial fill upon patient request if the prescription is for a schedule II opioid drug. Start Date: 01/16/23 Status: Ordered Quantity: 30.0 Unit: tablet Repeat number: 1 Dx: Right knee pain, right knee osteoarthritis Dx: Right knee pain, right knee osteoarthritis, See Instructions, # 1 each, Refills 0, Tot. Refills0, Maintenance, Dx: Right knee pain, right knee osteoarthritis Rx: Outpatient physical therapy, 01/21/23 12:01:00 PM EDT, Supply Start Date: 01/21/23 Status: Ordered Quantity: 1.0 Unit: each Repeat number: 1 hydrochlorothiazide-triamterene 25 mg-37.5 mg oral capsule 1 capsule, By Mouth, Daily at bedtime, # 30 capsule, 0 Refills, Maintenance, 01/16/23 1:41:00 PM EDT, Capsule, Partial fill upon patient request if the prescription is for a schedule II opioid drug. Start Date: 01/16/23 Status: Ordered Quantity: 30.0 Unit: capsule Repeat number: 1 influenza virus vaccine, inactivated adjuvanted preservative-free quadrivalent intramuscular susp 0.5 mL, Intramuscular, Once, # 0.5 mL, 0 Refills, Soft Stop, 07/14/23 2:51:00 PM EDT, Suspension, Partial fill upon patient request if the prescription is for a schedule II opioid drug. Start Date: 07/14/23 Status: Ordered Quantity: 0.5 Unit: mL Repeat number: 1 Lexapro 20 mg oral tablet 1 tablet = 20 mg, By Mouth, Daily in AM, # 30 tablet, 0 Refills, Maintenance, 05/29/12 7:47:34 AM EDT, Tablet Start Date: 05/29/12 Status: Ordered Quantity: 30.0 Unit: tablet Repeat number: 1 metFORMIN 750 mg oral tablet, extended release 1 tablet = 750 mg, By Mouth, 2 times a day, # 30 tablet, 0 Refills, Maintenance, 01/16/23 1:39:00 PMEDT, ER Tablet, Partial fill upon patient request if the prescription is for a schedule II opioid drug. Start Date: 01/16/23 Status: Ordered Quantity: 30.0 Unit: tablet Repeat number: 1 Prevnar 13 intramuscular suspension 0.5 mL, Intramuscular, Once, # 1 each, 0 Refills, Soft Stop, 07/14/23 2:52:00 PM EDT, Suspension, Partial fill upon patient request if the prescription is for a schedule II opioid drug. Start Date: 07/14/23 Status: Ordered Quantity: 1.0 Unit: each Repeat number: 1 rOPINIRole 1 mg oral tablet 4 tablet = 4 mg, By Mouth, 2 times a day, 0 Refills, Maintenance, 10/08/22 9:45:00 AM EST, Tablet, Partial fill upon patient request if the prescription is for a schedule II opioid drug. Start Date: 10/08/22 Status: Ordered Repeat number: 1 Rx: Nebulizer machine, Dx: Bronchitis, reactive airway disease, suspicious for asthma Rx: Nebulizer machine, Dx: Bronchitis, reactive airway disease, suspicious for asthma, See Instructions, # 1 each, Refills 0, Tot. Refills 0, Maintenance, Rx: Nebulizer machine, Dx: Bronchitis, reactive airway disease, suspicious for asthma, 01/21/23 11:19:00 AM EDT, Supply Start Date: 01/21/23 Status: Ordered Quantity: 1.0 Unit: each Repeat number: 1 Rx: Voice therapy with speech therapy, Dx: Voice changes Rx: Voice therapy with speech therapy, Dx: Voice changes, See Instructions, # 1 each, Refills 0, Tot. Refills 0, Maintenance, Rx: Voice therapy with speech therapy, Dx: Voice changes, 01/21/23 11:55:00 AM EDT, Supply Start Date: 01/21/23 Status: Ordered Quantity: 1.0 Unit: each Repeat number: 1 Symbicort 80mcg/4.5mcg Inhaler 2, puffs, Inhalation, 2 times a day, in the morning and the evening rinse mouth and throat after use, # 3 each, Refills 3, Tot. Refills 3, Maintenance, 12/14/23 2:08:00 PM EDT, Aerosol, Route to Pharmacy Electronically, NCPDP_ID-[id number], [id number], asthma j45.9, 158, cm, 12/14/23 13:37:00 EDT, Height, 98, kg, 01/15/23 20:10:00 EDT, Dry Weight Start Date: 12/14/23 Stop Date: 12/08/24 Status: Ordered Quantity: 3.0 Unit: each Repeat number: 4 Toprol XL 25 mg oral tablet, extended release 25 mg, 1, tablet, By Mouth, Daily, # 30 tablet, Refills 0, Maintenance, 01/16/23 1:41:00 PM EDT, Partial fill upon patient request if the prescription is for a schedule II opioid drug. Start Date: 01/16/23 Status: Ordered Quantity: 30.0 Unit: tablet Repeat number: 1 Problem List Condition Confirmation Course Effective Dates Status Health St atus Informant Carotid artery stenosis Confirmed Active Diabetes Confirmed Active LVH (left ventricular hypertrophy) Confirmed Active Lung nodule Confirmed Active Obstructive sleep apnea Confirmed Active Restless leg syndrome Confirmed Active Severe obesity Confirmed Active Social History Social History Type Response Smoking Status Never smoker; Tobacc o user in household: No entered on: 11/10/14 Sex Sex Representation Female (finding) Patient Care team information Care Team Personnel Name: Ronna Cyr RN Position: [facility] RN Member Role: Primary Care Nurse Name: Ami Aponte MD Position: [facility] Physician - Primary Care Member Role: PCP Address: [facility] [address] Telecom: Name: Angelica Hess RN Position: [facility] RN Member Role: Primary Care Nurse Name: Aleksandra Reynolds LPN Position: [facility] RN Member Role: Primary Care Nurse Name: Hue Majano RN Position: [facility] RN Member Role: Primary Care Nurse Name: Adriana Mcdonald RN Position: [facility] SN RN Member Role: Primary Care Nurse Name: Diana Parnell RN Position: [facility] RN Member Role: Primary Care Nurse Name: Araceli Shoemaker RN Position: [facility] RN Member Role: Primary Care Nurse Name: Lorelei Griffiths RN Position: [facility] RN Member Role: Primary Care Nurse Name: Xochitl Abdul RN Position: [facility] RN Member Role: Primary Care Nurse Name: Willian Charles RN Position: [facility] ED RN W/OE and Tasks Member Role: Primary Care Nurse Name: Yanira Willoughby RN Position: [facility] RN Member Role: Primary Care Nurse Name: Windy Sanders RN Position: [facility] RN Member Role: Primary Care Nurse Name: Sirisha Arias RN Position: [facility] RN Member Role: Primary Care Nurse Name: Denisa Madsen RN Position: [facility] [place]IL[place] Office Staff Member Role: Primary Care Nurse Name: Angelica Sterling RN Position: [facility] RN Member Role: Primary Care Nurse Name: Letty Reyes RN Position: [facility] RN Member Role: Primary Care Nurse Care Team Related Persons Name: ALEXA IGLESIAS Name: BASILIO WADE Insurance Providers Guarantor name: KARRI IGLESIAS Health Plan Information #: 1 Payer: MEDICARE PART B OUTPT Member Number: NA Policy Number: NA Group Number: NA Health Plan Information #: 2 Payer: [facility] Member Number: NA Policy Number: NA Group Number: NA
--- OUTSIDE RECORDS SUMMARY | 2024-11-24 06:43 | XMS_ITS | Continuity of Care Document ---
Author Organization [facility] Address [address] [place] [id number]- Care Team Providers Care Research Associate Name Role Phone Ami Aponte MD Primary Care Physician [id number] Date(s): 11/08/24 - 11/15/24 [facility] [address] [place] [id number] Attending Physician: Shelly Caceres MD Admitting Physician: Shelly Caceres MD Referring Physician: Ami Aponte MD Encounter Type: Office Visit Allergies, Adverse Reactions, Alerts Substance Criticality Severity Reaction Reaction Severity Status penicillins MOLD ALLERGY Activ e Biaxin TEARS UP STOMACH Act darrian NSAIDs raise creatine Activ e Demerol HCl is not effective A ctive Vioxx WENT INTO CHF Active Immunizations Given and Recorded Vaccine Date Status Refusal Reason pneumococcal 13-valent vaccine 1 07/14/23 Given influenza virus vaccine, inactivated 2 07/14/23 Gi rashaad influenza virus vaccine, inactivated 3 10/23/22 Gi rashaad SARS-CoV-2 (COVID-19) mRNA BNT-162b2 vac 11/20/20 Recorded pneumococcal 23-valent vaccine 11/11/14 Given 1Result Comment: [id number] 2Result Comment: [facility] [id number] 3Early/Late Reason: Early/Late Reason: Other : med [...] Maintenance, 01/21/23 12:57:00 PM EDT, Inhalation Solution, [facility]/pharmacy #[id number], Partial fill upon patient request [...] PM EDT, Aerosol, Route to Pharmacy Electronically, NCPDP_[id number], [id number], asthma j45.9, 158, cm, 12/14/23 13:37:00 [...] syndrome Confirmed Active Severe obesity Confirmed Active Vital Signs Most recent to oldest [Reference Range]: 1 Height 157 cm (11/08/24 1:45 PM) Weight 104.5 kg (11/08/24 1:45 PM) Oxygen Saturation [94-100 %] 97 % (11/08/24 1:45 PM) Pulse Rate [55-90 bpm] 105 bpm *H* (11/08/24 1:45 PM) Body Mass Index [18.5-24.99 kg/m2] 42.4 kg/m2 *>HHI* (11/08/24 1:45 PM) Blood Pressure [90-138/55-84 mm Hg] 200/ 80mm Hg *H* (11/08/24 1:45 PM) Blood pressure sites Arm, left (11/08/24 1:45 PM) Weight Obtained Via Patient/family state d (11/08/24 1:45 PM) Social History Social History Type Response Smoking Status Never smoker; Tobacc o user in household: No entered on: 11/10/14 Sex Sex Representation Female (finding) Note * Kati Arroyo: PERFORM Event Display: Patient Education/Instruction Authored Date: [id number] Ambulatory [place] [address] Name: KARRI IGLESIAS : 1950?? Visit: 11/08/2024 13:10?? Ambulatory Visit Instructions ?? Your Care Team Primary Care Provider Ami Aponte MD? This Visit Provider Shelly Caceres MD Vitals Signs Pulse Rate:??105 bpm??High Height: 157 cm Systolic Blood Pressure:??200 mm Hg??High Weight: 104.5 kg Diastolic Blood Pressure: 80 mm Hg Body Mass Index:??42.4 kg/m2??Critical Oxygen Saturation: 97 % Body surface area: 2.13 What to do next Follow-Up Appointments Follow Up with??Shelly Caceres MD Why: OR right [facility] Where: [facility], [address] [place] [address]- Medications The list below reflects the information in our records and provided by you today along with any changes made during this visit. Please continue your medications until treatment is completed or stopped by your provider. If this is different from the information you have or there are other questions,please contact the prescribing provider. What How Much When Instructions Unchanged Albuterol/ Ipratropium (albuterol- ipratropium 3 mg-0.5 mg/ 3 ml inhalation solution) 3 Milliliter BAND Nebulizer 4 times a day as needed for Wheezing/Shortness of Breath Duration: 30 Days Unchanged Albuterol/ Ipratropium (albuterol-ipratropium 3 mg-0.5 mg/ 3 ml inhalation solution) 3 Milliliter BAND Nebulizer 4 times a day as needed for Wheezing/Shortness of Breath Dx: Bronchitis with wheezing, reactive airway disease, suspicious of asthma ?? Unchanged Aspirin (aspirin 81 mg oral delayed release tablet) 81 Milligram Oral Daily Duration: 90 Days Unchanged Atorvastatin (atorvastatin 40 mg oral tablet) 1 tab(s) Oral Daily at Bedtime Duration: 90 Days Unchanged Budesonide-Formoterol (Symbicort 80mcg/ 4.5mcg Inhaler) 2 puff(s) Inhalation Twice a day Duration: 90 Days in the morning and the evening rinse mouth and throat after use ?? Unchanged BuPROpion (buPROPion 300 mg/ 24 hours (XL) oral tablet, extended release) 1 tab(s) Oral Daily Unchanged Durable Medical Equipment (Rx: Nebulizer machine, Dx: Bronchitis, reactive airway disease, suspicious for asthma) See instructions Rx: Nebulizer machine, Dx: Bronchitis, reactive airway disease, suspicious for asthma ?? Unchanged Escitalopram (Lexapro 20 mg oral tablet) 1 tab(s) Oral Daily in the morning Unchanged Hydrochlorothiazide/ Triamterene (hydrochlorothiazide-triamterene 25 mg-37.5 mg oral capsule) 1 capsule Oral Daily at Bedtime Unchanged influenza virus vaccine, inactivated (influenza virus vaccine, inactivated adjuvanted preservative-free quadrivalent intramuscular susp) 0.5 Milliliter Intramuscular Once Unchanged Metformin (metFORMIN 750 mg oral tablet, extended release) 1 tab(s) Oral Twice a day Unchanged Metoprolol (Toprol XL 25 mg oral tablet, extended release) 1 tab(s) Oral Daily Unchanged Miscellaneous Rx (Dx: Right knee pain, right knee osteoarthritis) See instructions Dx: Right knee pain, right knee osteoarthritis Rx: Outpatient physical therapy ?? Unchanged Miscellaneous Rx (Rx: Voice therapy with speech therapy, Dx: Voice changes) See instructions Rx: Voice therapy with speech therapy, Dx: Voice changes ?? Unchanged pneumococcal 13-valent vaccine (Prevnar 13 intramuscular suspension) 0.5 Milliliter Intramuscular Once Unchanged Ropinirole (rOPINIRole 1 mg oral tablet) 4 tab(s) Oral Twice a day Medications and Immunizations Administered Medications Given During Visit No medications given during this visit.?? Allergies (NKA means No Known Allergies) Biaxin??(TEARS UP STOMACH) Demerol HCl??(is not effective) NSAIDs??(raise creatine) Vioxx??(WENT INTO CHF) penicillins??(MOLD ALLERGY) Common Emergency Awareness Tips IS IT A STROKE? Act FAST and Check for these signs: FACE Does the face look uneven? ARM Does one arm drift down? SPEECH Does their speech sound strange? TIME Call at any sign of stroke ?? Heart Attack Signs Chest discomfort: Most heart attacks involve discomfort in the center of the chest and lasts more than a few minutes, or goes away and comes back. It can feel like uncomfortable pressure, squeezing, fullness or pain. Discomfort in upper body: Symptoms can include pain or discomfort in one or both arms, back, neck, jaw or stomach. Shortness of breath: With or without discomfort. Other signs: Breaking out in a cold sweat, nausea, or lightheaded. Remember, MINUTES DO MATTER. If you experience any of these heart attack warning signs, call to get immediate medical attention! ?? Smoking can increase your chances of developing chronic health problems and can cause harmful effects to other family members in your house. If you smoke, you are strongly encouraged to quit. Please call [email or web address] at [phone] or [phone] ([phone]) or log in to [email or web address] for referrals to smoking cessation programs. ?? The National Suicide Prevention Hotline is available 25/04 if you or someone you know needs to find a reason to keep living. By calling 6-459-529-[employer] (5665) you'll be connected to a skilled, trained counselor at a crisis center in your area. [facility] Portal You can view and manage your care through the patient portal or by using a health care agus of your choosing. [employer] is a website that allows you to securely view your medical information including your hospital discharge summary, office visit summaries, medications and follow-up visits. You can also request appointments, renew medications, and request access to your medical information using a health care agus of your choosing, or just ask a question. You can enroll at [email or web address] or register during your next office visit. [facility], in keeping with [facility] guidance, no longer requires face masks for staff, patientsor visitors in most situations. Similiar to time spent indoors at other locations, there is the chance that you were exposed to repiratory viruses during your time with us (such as flu or COVID-19). If you develop symptoms concerning for a viral respiratory infection, please seek testing (and treatment if indicated) from your medical provider or home test kit. ?? Disclaimer: The information provided is of a general nature and is intended to be used in conjunction with the recommendations and advice of your health care practitioner. Every effort has been made to ensure that the information provided is accurate and complete at the time it is provided to you however, as your needs change, or, as new information becomes available, different or additional instructions may be required. ?? If you have questions, please consult with your primary care provider or pharmacist, as appropriate. This information is not intended to serve as substitution for assessment and evaluation by a qualified health care provider. If you do not have a primary care provider, you may find a [facility] provider by calling [facility] at [phone]. Patient Care team information Care Team Personnel Name: Ronna Cyr RN Position: [facility] RN Member Role: Primary Care Nurse Name: Ami Aponte MD Position: [facility] Physician - Primary Care Member Role: PCP Address: [address] Telecom: Name: Angelica Hess RN Position: S RN Member Role: Primary Care Nurse Name: Aleksandra Reynolds LPN Position: [facility] RN Member Role: Primary Care Nurse Name: Hue Majano RN Position: [facility] RN Member Role: Primary Care Nurse Name: Adriaan Mcdonald RN Position: [facility] SN RN Member Role: Primary Care Nurse Name: Diana Parnell RN Position: [facility] RN Member Role: Primary Care Nurse Name: Araceli Shoemaker RN Position: [facility] RN Member Role: Primary Care Nurse Name: Lorelei Griffiths RN Position: [facility] RN Member Role: Primary Care Nurse Name: Xochitl Abdul RN Position: [facility] RN Member Role: Primary Care Nurse Name: Willian Charles RN Position: [facility] ED RN W/OE and Tasks Member Role: Primary Care Nurse Name: Yanira Willoughby RN Position: [facility] RN Member Role: Primary Care Nurse Name: Windy Sanders RN Position: [facility] RN Member Role: Primary Care Nurse Name: Sirisha Arias RN Position: [facility] RN Member Role: Primary Care Nurse Name: Denisa Madsen RN Position: [facility] [place] Office Staff Member Role: Primary Care Nurse Name: Angelica Sterling RN Position: [facility] RN Member Role: Primary Care Nurse Name: Letty Reyes RN Position: [facility] RN Member Role: Primary Care Nurse Care Team Related Persons Name: ALEXA IGLESIAS Name: BASILIO WADE Insurance Providers Guarantor name: KARRI IGLESIAS Health Plan Information #: 1 Payer: MEDICARE PART B OUTPT Member Number: [id number] Policy Number: NA Group Number: NA Health Plan Information #: 2 Payer: [facility] Member Number: [id number] Policy Number: NA Group Number: NA
--- OUTSIDE RECORDS SUMMARY | 2024-11-24 06:44 | XMS_ITS | Data Portability ---
Author Organization [place] - [facility], Allergy Address [address] [place] [address] Care Team Providers Care Senior Revenue Accountant Name Role Phone LYNSEY KAHNANNA Referring Provider Assessment Encounter Date Assessment Date Assessment LastModified by Organization Details LastModified Time 08/24/2024 08/24/2024 74-year-old female presents for reevaluation. Flexible laryngoscopy was obtained today and shows fully mobile cords bilaterally but with persistent vocal cord tension and supraglottic squeeze. This explains her occasional hoarseness. She is not interested in any intervention. Certainly cleared for any surgery that might be needed in regard to her thyroid nodule. Proceed with biopsy as scheduled and follow-up with primary care. In regard to right sided hearing loss since her injury otologic exam is unremarkable. Audiometric testing was obtained today. Results show sensorineural hearing loss bilaterally which is interestingly symmetrical. No sign of conductive loss. Her speech discrimination is 96 bilaterally as well. She would qualify for bilateral hearing aids but is not sure that this is feasible with her current budget. If she changes her mind I would be happy to provide medical clearance. Otherwise, she may follow-up as needed. Not available 08/24/2024 15:16:12 Plan of Treatment Reminders Order Date Submit Date Provider Last Modified By Organization Details Last Modified Time Details Appointments None record ed. Lab None record ed. Referral None record ed. Procedures None record ed. Surgeries None record ed. Imaging None record ed. Medication Orders None record ed. Patient TargetsNo targets recorded. Patient InstructionsNo instructions recorded. Reason for Referral None Reported. Results Created Date Observation Date Name Description Value Unit Range Abnormal Flag Note LastModifiedBy Organization Detail LastModifiedTime 08/27/20 24 09/07/2021 audio gram No observ ation record ed. [email or web address] Not Available 08/04 09:59:23 08/27/20 24 audio gram No observ ation record ed. [email or web address] Not Available 08/04 10:00:33 Result Notes None recorded. Problems Name Problem SNOMED Code Status Onset Date Resolution Date Notes Provider Name and Address Organization Details Recorded Time Hyperacu sis of left ear [id number] 80733 Completed 201505/04/2024 Hyperacu sis, left ear; Note: Date Diagnose d: 6 9:15 AM (H93.232 ) Not Available [facility] 4 02:27:50 Nasal congesti on 13391877 Active 2016 Nasal congesti on; Note: Date Diagnose d: 7 10:42 AM (R09.81) Not Available [facility] 4 02:28:05 Obstruct darrian sleep apnea syndrome 56136231 Active 2020 Obstruct darrian sleep apnea (adult) (pediatr ic); Note: Date Diagnose d: 1 11:24 AM (G47.33) Not Available [facility] 4 02:28:03 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 Injury of accessor y nerve, left side, initial encounte r; Note: Date Diagnose d: 3 1:41 PM (S04.72X A) Not Available [facility] 4 02:28:08 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, unilater al; Note: Date Diagnose d: 3 1:41 PM (J38.01) Not Available [facility] 4 02:28:02 Follow-u p visit Active 2015 Encounte r for follow-u p examinat ion after complete d treatmen t for conditio ns other than malignan t neoplasm ; Note: Date Diagnose d: 08/12/20 16 1:47 PM (Z09) Not Available [facility] 4 02:27:47 Dizzines s and giddines s 768996002 Active 2014 Dizzines s and giddines s; Note: Date Diagnose d: 07/23/20 15 2:02 PM (R42) Not Available [facility] 4 02:27:54 Hypertro phy of nasal turbinat es 26391836 Active 2016 Hypertro phy of nasal turbinat es; Note: Date Diagnose d: 7 10:41 AM (J34.3) Not Available [facility] 4 02:28:07 Sensorin eural hearing loss 92376637 Active 2014 Sensorin eural hearing loss, unilater al, left ear, with unrestri cted hearing on the contrala teral side; Note: Date Diagnose d: 07/23/20 15 2:02 PM (H90.42) Not Available [facility] 4 02:27:52 Migraine 95336706 Active 2018 Other migraine , not intracta ble, without status migraino emir; Note: Date Diagnose d: 9 2:26 PM (G43.809 ) Not Available [facility] 4 02:27:44 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, right ear; Note: Date Diagnose d: 8 4:52 PM (H91.21) Not Available [facility] 4 02:28:01 Tinnitus of left ear [id number] 06 Active 2019 Tinnitus , left ear; Note: Date Diagnose d: 0 11:37 AM (H93.12) Tinnit us, left ear; Note: Date Diagnose d: 07/23/20 15 2:02 PM (H93.12) ; Start Date : 07/23/20 15 Not Available [facility] 4 02:27:50 Allergic rhinitis 90367072 Active 2021 Allergic rhinitis : Due to other allergen ; Note: Date Diagnose d: 2 1:21 PM (477.8) Allerg ic rhinitis : Due to other allergen ; Note: Date Diagnose d: 2 10:40 AM (477.8) ; Start Date : 06/29/20 22 Aller gic rhinitis : Due to other allergen ; Note: Date Diagnose d: 2 3:01 PM (477.8) ; Start Date : 04/27/20 22 Aller gic rhinitis : Due to other allergen ; Note: Date Diagnose d: 2 1:43 PM (477.8) ; Start Date : 03/19/20 22 Aller gic rhinitis : Due to other allergen ; Note: Date Diagnose d: 2 2:29 PM (477.8) ; Start Date : 03/02/20 22 Aller gic rhinitis : Due to other allergen ; Note: Date Diagnose d: 01/06/2022 1:09 PM (477.8) ; Start Date : 01/07/20 22 Aller gic rhinitis : Due to other allergen ; Note: Date Diagnose d: 2 10:25 AM (477.8) ; Start Date : 11/20/19 22 Aller gic rhinitis : Due to other allergen ; Note: Date Diagnose d: 07/31/20 21 11:34 AM (477.8) ; Start Date : 07/31/20 21 Aller gic rhinitis : Due to other allergen ; Note: Date Diagnose d: 07/17/20 21 2:07 PM (477.8) ; Start Date : 07/17/20 21 Aller gic rhinitis : Due to other allergen ; Note: Date Diagnose d: 1 1:12 PM (477.8) ; Start Date : 05/20/20 21 Aller gic rhinitis : Due to other allergen ; Note: Date Diagnose d: 1 1:07 PM (477.8) ; Start Date : 04/29/20 21 Aller gic rhinitis : Due to other allergen ; Note: Date Diagnose d: 03/10/2021 10:02 AM (477.8) ; Start Date : 03/10/20 21 Aller gic rhinitis : Due to other allergen ; Note: Date Diagnose d: 1 1:13 PM (477.8) ; Start Date : 01/21/20 Aller gic rhinitis : Due to other allergen ; Note: Date Diagnose d: 10:18 AM (477.8) ; Start Date : 01/17/20 Aller gic rhinitis : Due to other allergen ; Note: Date Diagnose d: 01/08/2021 1:39 PM (477.8) ; Start Date : 01/09/20 Aller gic rhinitis : Due to other allergen ; Note: Date Diagnose d: 11:18 AM (477.8) ; Start Date : 12/31/19 Aller gic rhinitis : Due to other allergen ; Note: Date Diagnose d: 10:03 AM (477.8) ; Start Date : 12/27/19 Aller gic rhinitis : Due to other allergen ; Note: Date Diagnose d: 2:12 PM (477.8) ; Start Date : 12/20/19 Aller gic rhinitis : Due to other allergen ; Note: Date Diagnose d: 12/09/2020 10:55 AM (477.8) ; Start Date : 12/10/19 Aller gic rhinitis : Due to other allergen ; Note: Date Diagnose d: 12/02/2020 9:21 AM (477.8) ; Start Date : 12/03/19 Aller gic rhinitis : Due to other allergen ; Note: Date Diagnose d: 10:13 AM (477.8) ; Start Date : 11/13/19 Aller gic rhinitis : Due to other allergen ; Note: Date Diagnose d: 1 10:06 AM (477.8) ; Start Date : 10/30/19 Aller gic rhinitis : Due to other allergen ; Note: Date Diagnose d: 11:44 AM (477.8) ; Start Date : 10/23/19 Aller gic rhinitis : Due to other allergen ; Note: Date Diagnose d: 10/08/2020 2:04 PM (477.8) ; Start Date : 10/08/19 Aller gic rhinitis : Due to other allergen ; Note: Date Diagnose d: 10/01/20 11:09 AM (477.8) ; Start Date : 10/01/20 Aller gic rhinitis : Due to other allergen ; Note: Date Diagnose d: 0 10:15 AM (477.8) ; Start Date : 09/04/20 Aller gic rhinitis : Due to other allergen ; Note: Date Diagnose d: 08/20/20 2:34 PM (477.8) ; Start Date : 08/20/20 Aller gic rhinitis : Due to other allergen ; Note: Date Diagnose d: 08/15/20 9:54 AM (477.8) ; Start Date : 08/15/20 Aller gic rhinitis : Due to other allergen ; Note: Date Diagnose d: 07/22/20 10:48 AM (477.8) ; Start Date : 07/22/20 Aller gic rhinitis : Due to other allergen ; Note: Date Diagnose d: 0 10:53 AM (477.8) ; Start Date : 07/11/20 Aller gic rhinitis : Due to other allergen ; Note: Date Diagnose d: 0 9:38 AM (477.8) ; Start Date : 06/25/20 Aller gic rhinitis : Due to other allergen ; Note: Date Diagnose d: 0 11:47 AM (477.8) ; Start Date : 06/13/20 Aller gic rhinitis : Due to other allergen ; Note: Date Diagnose d: 06/04/2020 9:47 AM (477.8) ; Start Date : 06/04/20 Aller gic rhinitis : Due to other allergen ; Note: Date Diagnose d: Not Available [facility] 4 02:28:02 Sensorin eural hearing loss of bilatera l ears 119318723 Active 2020 Sensorin eural hearing loss, bilatera l; Note: Date Diagnose d: 1 11:14 AM (H90.3) Not Available [facility] 4 02:27:48 Chronic hoarsene ss 35297804437 05 Active 2023 OMAR ROBLERO PA-C [address] [place] [address],[facility], [place], [address] , [place] - [facility] 14:42:23 Problem Notes None recorded. Procedures Surgical History Date Name Laterality Status Provider Name and Address Organization Details Recorded Time 08/24/2024 Comp Audio with Tymps (04688 & 31698) completed JACKIE CHURCHILL [address] [facility],[place] [address], [place], [address], [facility] 08/24/2024 14:48:33 08/24/2024 FOL_DP completed OMAR ROBLERO PA-C [address] [facility],[place] [address], [place], [address], [facility] 08/24/2024 14:41:15 Imaging Results Imaging Date Name Status LastModified by Organiz ation Details LastModified Time 09/07/2021 audiogram completed [email or web address] Information n ot available 08/27/2024 09:59:23 08/27/2024 audiogram completed [email or web address] Information n ot available 08/27/2024 10:00:33 Procedure Notes None recorded. Medical Equipment None Reported. Allergies No known drug allergies Medications Name Sig Start Date Stop Date Status Note LastModified by Organization Details LastModified Time Refresh Tears 0.5 % eye drops 2015 active Medicati on ID: [id number] B rand Name: Refresh Tears Se nd Method: E-Prescr ibed Sub s Allowed: subs OK Medic ationGen ericName : Refresh Tears Not Available Not Available Not Available desonide 0.05 % topical cream 2015 active Medicati on ID: [id number] B rand Name: desonide Send Method: E-Prescr ibed Sub s Allowed: subs OK Medic ationGen ericName : desonide Not Available Not Available Not Available prednison e 10 mg tablet 01/11 completed Medicati on ID: [id number] Marii juan By Name: Jodi Henriquez nd Name: predniso ne Send Method: E-Prescr ibed Sub s Allowed: subs OK Speci al Instruct ion: Take 6 tablets once a day for 9 days , then take 5 tablets on day 10, 4 tablets on day 11, 3 tablets on day 12, 2 tablets on day 13, and 1 tablet on day 14 Medic ationGen ericName : predniso ne Not Available Not Available Not Available Medrol (Darell) 4 mg tablets in a dose pack 06/13 completed Medicati on ID: [id number] P álvarorimoise d By Name: Jodi Henriquez nd Name: Medrol (Darell) Se nd Method: E-Prescr ibed Sub s Allowed: subs OK Speci al Instruct ion: take as instruct ed Medic ationGen ericName : Medrol (Darell) Not Available Not Available Not Available sulfaceta mide sodium 10 % eye ointment 06/13 completed Medicati on ID: [id number] R mino: () Brand Name: sulfacet amide sodium S end Method: E-Prescr ibed Sub s Allowed: subs OK Medic ationGen ericName : sulfacet amide sodium Not Available Not Available Not Available doxycycli ne hyclate 50 mg capsule TAKE 1 CAPSULE BY MOUTH TWICE DAILY active Not Available Not Available No t Available triamtere ne 37.5 mg-hydroc hlorothia zide 25 mg capsule Take 1 capsule by mouth once a day 2021 active Medicati on ID: [id number] P roberta d By Name: Jodi Henriquez nd Name: triamter narendra-hydr ochlorot hiazid S end Method: E-Prescr ibed Sub s Allowed: subs OK Medic ationGen ericName : triamter narendra-hydr ochlorot hiazid Not Available Not Available Not Available levothyro xine 25 mcg tablet 2015 active Medicati on ID: [id number] B rand Name: levothyr oxine Se nd Method: E-Prescr ibed Sub s Allowed: subs OK Medic ationGen ericName : levothyr oxine Not Available Not Available Not Available propranol ol 10 mg tablet 04/29 completed Medicati on ID: [id number] B rand Name: proprano lol Send Method: E-Prescr ibed Sub s Allowed: subs OK Medic ationGen ericName : proprano lol Not Available Not Available Not Available lorazepam 0.5 mg tablet TAKE 0.5-1 TABLET BY MOUTH EVERY DAY NEEDED active Not Available Not Available No t Available ropinirol e 2 mg tablet 2015 active Medicati on ID: [id number] B rand Name: syed le Send Method: E-Prescr ibed Sub s Allowed: subs OK Medic ationGen ericName : ropiniro le Not Available Not Available Not Available simvastat in 20 mg tablet 2015 active Medicati on ID: [id number] B rand Name: simvasta tin Send Method: E-Prescr ibed Sub s Allowed: subs OK Medic ationGen ericName : simvasta tin Not Available Not Available Not Available oxycodone 5 mg capsule TAKE ONE CAPSULE BY MOUTH EVERY SIX HOURS FOR THREE DAYS*DUE 08/09* active Not Available Not Available No t Available gabapenti n 300 mg capsule 2021 active Medicati on ID: [id number] B rand Name: gabapent in Send Method: E-Prescr ibed Sub s Allowed: subs OK Medic ationGen ericName : gabapent in Not Available Not Available Not Available hydroxyzi ne HCl 25 mg tablet 2020 active Medicati on ID: [id number] B rand Name: hydroxyz ine HCl Send Method: E-Prescr ibed Sub s Allowed: subs OK Speci al Instruct ion: TAKE 1 TABLET (25 MG TOTAL) BY MOUTH EVERY 6 HOURS NEEDED FOR ITCHING Medicati onGeneri cName: hydroxyz ine HCl Not Available Not Available Not Available magnesium 250 mg tablet 2015 active Medicati on ID: [id number] B rand Name: magnesiu m Send Method: E-Prescr ibed Sub s Allowed: subs OK Medic ationGen ericName : magnesiu m Not Available Not Available Not Available irbesarta n 150 mg tablet 2015 active Medicati on ID: [id number] B rand Name: irbesart an Send Method: E-Prescr ibed Sub s Allowed: subs OK Medic ationGen ericName : irbesart an Not Available Not Available Not Available Wellbutri n 100 mg tablet 08/24 completed Medicati on ID: [id number] B rand Name: Wellbutr in Send Method: E-Prescr ibed Sub s Allowed: subs OK Medic ationGen ericName : Wellbutr in Not Available Not Available Not Available epinephri ne 0.3 mg/0.3 mL injection , auto-inje ctor 2021 active Medicati on ID: [id number] D uration Value: 1 Brand Name: german coffey Send Method: E-Prescr ibed Sub s Allowed: subs OK Speci al Instruct ion: INJECT 1 PEN INJECTOR INTRAMUS CULARLY. SINGLE DOSE NEEDED M edicatio nGeneric Name: guillerminaphr ine Not Available Not Available Not Available Fleming 5 mg-325 mg tablet 1-2 tablet by mouth 08/24 completed Medicati on ID: [id number] D uration Value: 7 Prescri bed By Name: EVARISTO Segura nd Name: Fleming Se nd Method: E-Prescr ibed Sub s Allowed: subs OK Medic ationGen ericName : Fleming Not Available Not Available Not Available multivita min capsule 2015 active Medicati on ID: [id number] B rand Name: multivit gifford Sen d Method: E-Prescr ibed Sub s Allowed: subs OK Medic ationGen ericName : multivit gifford Not Available Not Available Not Available fluticaso ne propionat e 50 mcg/actua tion nasal spray,emir pension [place] 2 spray into both nostrils once a day 2021 active Medicati on ID: [id number] D uration Value: 90 Prescri bed By Name: Jodi Henriquez nd Name: fluticas one propiona te Send Method: E-Prescr ibed Sub s Allowed: subs OK Speci al Instruct ion: may use twice a day as needed M edicatio nGeneric Name: fluticas one propiona te Not Available Not Available Not Available naproxen 500 mg tablet 03/16 completed Medicati on ID: [id number] R mino: () Brand Name: naproxen Send Method: E-Prescr ibed Sub s Allowed: subs OK Medic ationGen ericName : naproxen Not Available Not Available Not Available oxycodone 5 mg tablet TAKE 1 TABLET ORALLY 2 TIMES A DAY NEEDED FOR PAIN 08/24 completed Not Available Not Available Not Available Lexapro 20 mg tablet 2015 active Medicati on ID: [id number] B rand Name: Lexapro Send Method: E-Prescr ibed Sub s Allowed: subs OK Medic ationGen ericName : Lexapro Not Available Not Available Not Available cyclobenz aprine 5 mg tablet TAKE 1 TABLET BY MOUTH 3 TIMES A DAY NEEDED FOR MUSCLE SPASM active Not Available Not Available No t Available bupropion HCl XL 150 mg 24 hr tablet, extended release 2020 active Medicati on ID: [id number] B rand Name: bupropio n HCl Send Method: E-Prescr ibed Sub s Allowed: subs OK Speci al Instruct ion: TAKE 1 TABLET BY MOUTH EVERY DAY IN THE MORNING Medicati onGeneri cName: bupropio n HCl Not Available Not Available Not Available solifenac in 5 mg tablet 2020 active Medicati on ID: [id number] B rand Name: solifena pily Send Method: E-Prescr ibed Sub s Allowed: subs OK Speci al Instruct ion: TAKE 1 TABLET BY MOUTH EVERY DAY Medi cationGe nericNam e: solifena pily Not Available Not Available Not Available Calcium 600 + Minerals 600 mg-10 mcg (400 unit) tablet 2015 active Medicati on ID: [id number] B rand Name: Calcium 600 + Minerals Send Method: E-Prescr ibed Sub s Allowed: subs OK Medic ationGen ericName : Calcium 600 + Minerals Not Available Not Available Not Available Vitamin D3 125 mcg (5,000 unit) tablet 2017 active Medicati on ID: [id number] B rand Name: Vitamin D3 Send Method: E-Prescr ibed Sub s Allowed: subs OK Medic ationGen ericName : Vitamin D3 Not Available Not Available Not Available Vitals None Recorded Social History None recorded. Functional Status None recorded. Mental Status None recorded. Family History Nothing Reported. Medical History Condition Response Anxiety Y High Cholesterol Y Sleep Disorder Y Cancer Y Migraines Y Hypertension Y Depression Y Gynecological HistoryNo gynecological history recorded. Obstetrics History GPAL:G 0 P 0 0 0 0 Past Encounters Encounter ID Performer Location Encounter Start Date Encounter Closed Date Diagnosis/Indication Diagnosis SNOMED-CT Code Diagnosis ICD10 Code Diagnosis Note [id number] NILSON GABRIEL [facility] [address] [place] [address] 08/24/2024 13:36:16 08/24/2024 15:15:03 Chronic hoarseness 4176164251 105 R49.0 Sensorineu ral hearing loss of bilateral ears 773303555 H90.3 [id number] CATARINA SEVILLAJACKIE LOPEZ [facility] [address] [place] [address] 08/24/2024 14:47:39 08/27/2024 08:12:02 Sensorineural hearing loss of bilateral ears 544512839 H90.3 Audiologic al evaluation results: Right ear: {{Normal N ormal through 2 kHz Mild* Moderate M oderately- severe Sev ere Profou nd}} {{hearing hearing. s loping to a mild slopi ng to a moderate s loping to moderately severe* sl oping to severe slo ping to profound f lat high frequency low frequency mid frequency cookie bite borges curve}} {{with* se nsorineura l hearing loss with condu ctive hearing loss with mixed hearing loss with}} {{excellen t* good fa ir poor no measurable }} word recognitio n. Left ear: {{Normal N ormal through 2 kHz Mild* Moderate M oderately- severe Sev ere Profou nd}} {{hearing hearing. s loping to a mild slopi ng to a moderate* sloping to moderately severe slo ping to severe slo ping to profound f lat high frequency low frequency mid frequency cookie bite borges curve}} {{with sen sorineural hearing loss with* cond uctive hearing loss with mixed hearing loss with}} {{excellen t* good fa ir poor no measurable }} word recognitio n. Tympanomet ry: Right Ear:{{Type A* Type As Type Ad Type C Type C, shallow & rounded Ty pe B Type B with large volume Cou ld not maintain a hermetic seal}} Left Ear:{{Type A* Type As Type Ad Type C Type C, shallow & rounded Ty pe B Type B with large volume Cou ld not maintain a hermetic seal}} Health Concerns Section Related Observation LastModified by Organization Detai ls LastModified Time None Recorded Concern Status LastModified by Organization Details LastModified Time None Recorded Advance Directives Directive None Recorded Payers Encounter Date Sequence Insurance Name Policy Number Policy Galvan Covered Member ID Galvan Member ID Guarantor Name 08/24/2024 1 MEDICARE [place]: [facility] Maryann Prajapati [id number] Maryann Prajapati 08/24/2024 2 () Maryann Fieldstrick [id number] Maryann Prajapati 08/24/2024 1 [place] [facility] Maryann Prajapati [id number] Maryann Prajapati 08/24/2024 2 () Maryann Prajapati [id number] Maryann Prajapati Notes Date Note Type Note Provider Name and Address Organization Details Recorded Time 08/24/2024 text/html 74-year-old yina garcia presents for reevaluation of her vocal cords. She has a history of vocal cord dysfunction. It was previously recommended that she have stroboscopy and possible vocal cord injection but she opted for observation instead. Overall her voice has much improved over the last year. She still has occasional hoarseness but nothing like it was previously. 3 weeks ago however she had a fall and suffered significant head injury. She was evaluated at [facility]. A CT scan showed no brain bleed but did show incidental carotid stenosis and a hypodense thyroid nodule measuring 1 cm. She has a biopsy scheduled next Tuesday at [facility]. Her primary care would like her vocal cords evaluated in preparation for any surgery she may require. She is also having trouble hearing out of her right ear since her fall. She believes she struck that side during her fall. History of [place] on the left side. NILSON GABRIEL MD [address] [place] [address], [place], [address], [place] - [facility] 08/24/2024 17:39:05 OBGyn Episode No OBEpisode recorded.
[2024-11-24 11:18] LABS: MANUAL DIFF FLAG NO
[2024-11-24 11:25] LABS: Basophils Absolute Auto 0.1 X10*3/uL (0.0-0.2); Basophils Percent Auto 0.7 % (0-2); Eosinophils Absolute Auto 0.2 X10*3/uL (0.0-0.4); Eosinophils Percent Auto 2.9 % (0-4); Hematocrit 42.4 % (37.0-47.0); Hemoglobin 14.2 g/dl (12.0-16.0); Imm Gran Abs Auto 0.02 X10*3/uL (0.00-0.03); Imm Gran Pct Auto 0.3 % (0.0-0.4); Lymphocytes Absolute Auto 2.1 X10*3/uL (1.2-4.9); Lymphocytes Percent Auto 29.2 % (20-40); Mean Corpuscular HGB Conc 33.5 g/dl (31.0-35.0); Mean Corpuscular Hemoglobin 29.6 pg (27.0-33.0); Mean Corpuscular Volume 88.5 fL (80.0-98.0); Monocytes Absolute Auto 0.5 X10*3/uL (0.1-1.2); Monocytes Percent Auto 6.8 % (2-11); Neutrophils Absolute Auto 4.4 x10*3/uL (2.0-8.3); Neutrophils Percent Auto 60.1 % (45-73); Platelet Count 250 X10*3/uL (160-400); Red Blood Count 4.79 X10*6/uL (4.20-5.50); Red Cell Distribution Width 12.8 % (11.0-16.0); White Blood Count 7.3 X10*3/uL (4.8-10.8)
[2024-11-24 11:41] LABS: Estimated Average Glucose 166 mg/dL; Hemoglobin A1C 206.0185 umol/L; Hemoglobin A1c % 7.4 % (<6.0); Total Hemoglobin (HGBA1C) 3603.3956 umol/L
[2024-11-24 12:03] LABS: Alanine Aminotransferase 17 U/L (0-31); Albumin Level 3.9 g/dL (3.5-5.0); Alkaline Phosphatase 92 U/L (39-117); Anion Gap 15 (12-20); Aspartate Amino Transferase 22 U/L (5-31); Bilirubin Total 0.4 mg/dL (0.0-1.0); Blood Urea Nitrogen 20 mg/dL (9-16); Calcium 9.5 mg/dL (8.4-10.2); Carbon Dioxide 24 mmol/L (22-29); Chloride 104 mmol/L (96-108); Cholesterol 128 mg/dL (<200); Estimated Glomerular Filt Rate > 60; Glucose Fasting 156 mg/dL (60-99); HDL Cholesterol 44 mg/dL (>40); LDL Cholesterol Calculated 62 mg/dL (<100); Sodium 139 mmol/L (135-145); Total Protein 7.6 g/dL (6.5-8.0); Triglycerides 110 mg/dL (<150); Vitamin D 25-OH Total 25.6 ng/mL (>30)
== END 2024-11-24 06:43 | disposition home or self-care (01) ==
LOC: HO.HMGCLDS 06:42
PROVIDERS: PCP Internal Medicine; Visit Provider Internal Medicine
DX: E11.9 Type 2 diabetes mellitus without complications (principal); E78.5 Hyperlipidemia, unspecified; I10 Essential (primary) hypertension; E55.9 Vitamin D deficiency, unspecified
CPT/HCPCS: 36415; 80053; 80061; 82306; 83036; 85025

== ENCOUNTER 2024-11-28 08:58 | Outpatient (AMB) | payer MEDICARE, OTHER, SELFPAY ==
[2024-11-28 09:01] VITALS: BP 134/76; PULSE 65; RESP 20; TEMP 36.8; O2SAT 96; BMI 41.9
--- NOTE | 2024-11-28 09:01 | A.OFFPC_ITS ---
Vital Signs 11/28/24 09:01 Height 5 ft 2 in Weight 229 lb BMI 41.9 BP 134/76 Blood Pressure Location Lt brachial Position Sitting Respiration 20 Pulse 65 Pulse Source Pulse Oximeter Temp 98.3 F Temp Source Oral Pulse Oximetry (%) 96 Oxygen Delivery Method Room Air Intake Visit Reasons: Followup DM, HTN Intake Note: Pt is here today for a follow up visit. Pt states that she needs EKG as she is having surgery on 12/12/24. Allergies rofecoxib [From Vioxx] Allergy (Intermediate, Verified 11/28/24 09:10) went into CHF Penicillins Allergy (Mild, Verified 11/28/24 09:10) mold allergy NSAIDS (Non-Steroidal Anti-Inflamma Allergy (Verified 11/28/24 09:10) raises cratinine level clarithromycin [From Biaxin] Adverse Reaction (Mild, Verified 11/28/24 09:10) UPSET STOMACH meperidine [From Demerol] Adverse Reaction (Mild, Verified 11/28/24 09:10) cofusion ineffective pain med Medication List - Last Reconciled 11/28/24 by Ami Aponte MD atorvastatin 40 mg PO DAILY blood sugar diagnostic ([employer] Ultra Test strips) 1 qd blood-glucose meter qd bupropion HCl XL 300 mg PO QAM escitalopram oxalate 20 mg PO DAILY lancets (OneTouch Delica Lancets) test blood sugar once a day metformin ER 750 mg PO BID metoprolol succinate ER 25 mg PO DAILY ropinirole 4 mg PO BID triamterene-hydrochlorothiazid 37.5-25 mg 1 tab PO DAILY Tobacco use date assessed: 11/28/24 Fall risk assessment: 1 Fall in past year Last assessed Fall Risk: 11/28/24 Dental Screening Dental Screen Date: 11/28/24 Did you have a dental visit in the last 12 months?: Yes Did you have a dental problem in the last 6 months where you did not have access to dental care?: No Was dental information given to patient?: Patient has dentist HPI Followup DM, HTN HPI Details Pt presents for f/u DM 2, hypertension hyperlipidemia. She will have right carotid surgery for stenosis done at [facility]. Patient was upset after discussing her weight and exercise after the last appointment and does not want to discuss lifestyle modifications for diabetes and obesity. [facility] Medical History (Updated 11/28/24 @ 10:29 by Ami Aponte MD) Diabetes type 2, controlled Hyperlipidemia TIA (transient ischemic attack) Hx of respiratory syncytial virus infection Surgical History (Updated 11/28/24 @ 10:24 by Ami Aponte MD) History of right salpingo-oophorectomy History of total replacement of right shoulder joint History of total right knee replacement Hx of laparoscopic gastric banding H/O lumpectomy Family History Father Hypertension Heart disease Mother Hypertension Osteoporosis Diabetes Mental health disorder Social History Household Members: Spouse Household Members Other:: retired nurse, , 2 daughters, 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 26120 - PHQ-9 Billing: Patient declined-do not bill Source: Developed by Drs. Cory Gonzalez, Tracy Louis, Nestor Bill and colleagues, with an educational adela from [employer]. Thrive Questionnaire Date Thrive assessed: 11/28/24 What is your living situation today?: I choose not to answer this question Within the past 12 months, did the food you bought not last and you didn't have the money to get more?: I choose not to answer this question Within the past 12 months, did you worry whether your food would run out before you got money to buy more?: I choose not to answer this question Do you have trouble paying for medicines?: I choose not to answer this question Do you have trouble getting transportation to medical appointments?: I choose not to answer this question Do you have trouble paying your heating and electricity bill?: I choose not to answer this question Do you have trouble taking care of your child, family member or friend?: I choose not to answer this question Do you have trouble with day-to-day activities such as bathing, preparing meals, shopping, managing finances, etc.?: I choose not to answer this question Are you currently unemployed and looking for a job?: I choose not to answer this question Are you interested in more education?: I choose not to answer this question THRIVE Score: 0 AUDIT C Alcohol Use Questionnaire (AUDIT-C) 1. How often do you have a drink containing alcohol?: Never 3. How often do you have six or more drinks on one occasion?: Never Total Score: 0 ANNMARIE-7 AMB Questionnaire ANNMARIE-7 Date ANNMARIE - 7 assessed: 11/28/24 Source: Developed by Drs. Cory Gonzalez, Tracy Louis, Nestor Bill and colleagues, with an educational adela from [employer]. Review of Systems Const All systems reviewed & are unremarkable except as noted in HPI and below Eyes Reports no additional complaints ENT Reports no additional complaints Card Reports no additional complaints Resp Reports no additional complaints GI Reports no additional complaints Reports no additional complaints Physical exam (Primary Care) Vital Signs: Last Vital Signs Temp 98.3 F 11/28/24 09:01 Pulse 65 11/28/24 09:01 Resp 20 11/28/24 09:01 BP 134/76 11/28/24 09:01 Pulse Ox 96 11/28/24 09:01 Oxygen Delivery Method Room Air 11/28/24 09:01 BMI result Body Mass Index 41.9 Tobacco/Smoking Status: Tobacco use Status Tobacco use date assessed 11/28/24 11/28/24 09:14 Patient Tobacco Use Status Never used Tobacco 11/28/24 09:14 e-Cigarette/Vaping Use Never Used 11/28/24 09:02 Thrive Assessment: Date of Thrive Assessment Date Thrive assessed 11/28/24 11/28/24 09:21 Const General: no acute distress HENMT Head: Yes normal to inspection Face and sinus: Yes normal facial exam Mouth: Normal oral and palatal mucosa present Eyes General: appearance normal, both eyes and all related structures Resp Effort & Inspection: normal respiratory effort Auscultation: clear to auscultation bilaterally Cardio Rhythm: regular rhythm Heart sounds: S1 normal heart sound present and S2 normal heart sound present GI Inspection: Yes normal to inspection Palpation (GI): Soft to palpation Percussion: Yes normal to percussion Auscultation: normal bowel sounds Coding Level of Care Code Est Pt Level 4 (28905) Complex EM visit Add On G2211 Diagnoses Hx of colonoscopy Z98.890 Diabetes type 2, controlled E11.9 HTN (hypertension) I10 H/O carotid endarterectomy Z98.890 Obesity E66.9 Thyroid nodule E04.1 Anxiety and depression F41.9; F32.A Vitamin D deficiency E55.9 Assessment & Plan Assessment & Plan (1) Hx of colonoscopy: Comment: 2015 normal , no need for repeat Code(s): Z98.890 - Other specified postprocedural states Category: Surgical Plan: ne need for recheck (2) Diabetes type 2, controlled: Comment: pt declined GLP 1 receptor agonist 09/24, patient does not want to discuss lifestyle modifications including exercise or ADA diet Code(s): E11.9 - Type 2 diabetes mellitus without complications Category: Medical Plan: A1c is 7.4. Patient has not been able to tolerate extended-release form of metformin. Metformin 500 mg 3 tablets of the is prescribed. Patient will return in 6 months with a fasting labs before (3) HTN (hypertension): Code(s): I10 - Essential (primary) hypertension Category: Medical Plan: Continue current medications (4) H/O carotid endarterectomy: Comment: Left for 75% 12/23 [facility], established with vascular surgeon at [facility] will have right carotid artery surgery for worsening stenosis 12/2024 Code(s): Z98.890 - Other specified postprocedural states Category: Surgical Plan: Patient will have right carotid artery stenosis surgery at [facility] (5) Obesity: Comment: Patient refused to discuss lifestyle modification including exercise or diet 11/2024 Code(s): E66.9 - Obesity, unspecified Category: Medical Plan: as above (6) Thyroid nodule: Comment: Ultrasound done at [facility] 08/2024, abnormal TSH level at [facility]. Patient [facility] Toledo but her appointment is scheduled in April. Patient is concerned about possibility of thyroid cancer. She will provide report of thyroid ultrasound and blood test result 11/28/2024 Code(s): E04.1 - Nontoxic single thyroid nodule Category: Medical Plan: Patient will obtain a copy of her thyroid ultrasound from [facility] and will try to get an appointment sooner with [facility] (7) Anxiety and depression: Comment: s/p suicidal attempt 2009, f/u with Psych Jeane Navarrete Code(s): F41.9 - Anxiety disorder, unspecified; F32.A - Depression, unspecified Category: Medical Plan: Continue current medications established with Psychiatry (8) Vitamin D deficiency: Code(s): E55.9 - Vitamin D deficiency, unspecified Category: Medical Plan: Patient was advised to double the dose of vitamin-D supplement and vitamin-D level will be rechecked Orders: Orders Complete Blood Count Auto Diff 6 Months E11.9 - Type 2 diabetes mellitus without complications, E55.9 - Vitamin D deficiency, unspecified, E78.5 - Hyperlipidemia, unspecified Lipid Panel 6 Months E11.9 - Type 2 diabetes mellitus without complications, E55.9 - Vitamin D deficiency, unspecified, E78.5 - Hyperlipidemia, unspecified Hemoglobin A1c 6 Months E11.9 - Type 2 diabetes mellitus without complications, E55.9 - Vitamin D deficiency, unspecified, E78.5 - Hyperlipidemia, unspecified AMB EKG-In Office Today I10 - Essential (primary) hypertension, I47.9 - Paroxysmal tachycardia, unspecified, R00.0 - Tachycardia, unspecified Comprehensive [place]. Panel Fast 6 Months E11.9 - Type 2 diabetes mellitus without complications, E55.9 - Vitamin D deficiency, unspecified, E78.5 - Hyperlipidemia, unspecified TSH reflex Free T4 6 Months E11.9 - Type 2 diabetes mellitus without complications, E55.9 - Vitamin D deficiency, unspecified, E78.5 - Hyperlipidemia, unspecified Vitamin D 25-OH Total 6 Months E11.9 - Type 2 diabetes mellitus without complications, E55.9 - Vitamin D deficiency, unspecified, E78.5 - Hyperlipidemia, unspecified Microalbumin, Random (w Creat) 6 Months E11.9 - Type 2 diabetes mellitus without complications, E55.9 - Vitamin D deficiency, unspecified, E78.5 - Hyperlipidemia, unspecified Medications: New metformin 500 mg PO TID 270 tabs 3RF Refilled atorvastatin 40 mg PO DAILY 90 tabs 3RF triamterene-hydrochlorothiazid 37.5-25 mg 1 tab PO DAILY 90 tabs 3RF metoprolol succinate ER 25 mg PO DAILY 90 tabs 3RF
== END 2024-11-28 10:34 | disposition home or self-care (01) ==
PROVIDERS: PCP Internal Medicine; Visit Provider Internal Medicine
DX: E11.9 Type 2 diabetes mellitus without complications (principal); Z98.890 Other specified postprocedural states; E66.9 Obesity, unspecified; Z68.41 Body mass index [BMI] 40.0-44.9, adult; I10 Essential (primary) hypertension; E04.1 Nontoxic single thyroid nodule; F41.9 Anxiety disorder, unspecified; F32.A Depression, unspecified; E55.9 Vitamin D deficiency, unspecified

== ENCOUNTER → 2024-11-28 08:58 | Outpatient (BNVA) | payer MEDICARE, OTHER, SELFPAY | PROVIDERS: PCP Internal Medicine; Visit Provider Internal Medicine | DX: E11.9 Type 2 diabetes mellitus without complications (principal); I10 Essential (primary) hypertension; E66.9 Obesity, unspecified; E04.1 Nontoxic single thyroid nodule; F41.9 Anxiety disorder, unspecified; F32.A Depression, unspecified; E55.9 Vitamin D deficiency, unspecified; Z98.890 Other specified postprocedural states | CPT/HCPCS: 99212 ==

== ENCOUNTER 2025-08-15 21:01 | Inpatient (IN) | payer MEDICARE, OTHER, SELFPAY ==
[2025-08-15] VITALS (10 sets, daily range): BP systolic 150–189; BP diastolic 54–95; PULSE 88–108; RESP 12–16; TEMP 37.1; O2SAT 96–100; BMI 38.3; BMI 39.0
--- NOTE | ~2025-08-15 | CT_ITS ---
CLINICAL HISTORY: Stroke Protocol CT angiography head and neck with contrast. 3D Postprocessing. Comparison: None provided Findings: Aortic arch and cervical great vessels are patent with no aneurysm, dissection, hemodynamically significant stenoses, or occlusion. Intracranial arteries are patent. No aneurysm, dissection, hemodynamically significant stenoses, or occlusion. No abnormal intracranial enhancement. The visualized thyroid gland is unremarkable. No cervical mass or fluid collection. Lung apices clear. No acute fracture. IMPRESSION: Patent head and neck CTA. This document has been electronically signed by: Kirt Brown MD on 08/15/2025 22:06:27
--- NOTE | ~2025-08-15 | CT_ITS ---
CLINICAL HISTORY: Stroke Protocol CT Head without contrast Comparison: CT/AL/SR - CT HEAD WITHOUT IV CONTRAST - 08/01/24 04:37 EDT Findings: Please note, evaluation of the left cerebral hemisphere is limited due to beam hardening artifact from extrinsic device. No large vessel territory infarct. No acute intracranial hemorrhage. No mass effect, midline shift, or herniation. Atherosclerotic disease of the carotid siphons. The pituitary gland and sella are unremarkable. The cerebellar tonsils are appropriately positioned. Orbits: The lenses have been replaced. The mastoid air cells are well aerated. The soft tissues are unremarkable. No acute displaced calvarial fracture. Impression: The left parietal, occipital, temporal lobes are not well evaluated due to beam hardening artifact. Within this limitation: No acute intracranial abnormality. This document has been electronically signed by: Donya Lucero MD on 08/15/2025 21:36:04
--- NOTE | ~2025-08-15 | CT_ITS ---
CLINICAL HISTORY: stroke CT head with contrast Comparison: CT/REG/SR - CT ANGIO HEAD NECK STROKE - 08/15/25 21:[address]/REG/SR - CT HEAD FOR STROKE - 08/15/25 21:17 EST Findings: Continued limitation metal artifact from the presumed implanted device within the left scalp. This artifact limits evaluation in visualization of portions of the supratentorial brain as discussed on the study from 1 day prior. No hydrocephalus. No focal areas of abnormal attenuation are identified in the brain parenchyma. No midline shift or mass effect. No abnormal enhancement. No acute calvarial lesions. 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 IMPRESSION: No acute intracranial findings given the limitation of metal artifact as discussed above. This document has been electronically signed by: Jamil Esqueda MD on 08/16/2025 23:28:06
--- NOTE | 2025-08-15 21:15 | ECG_ITS ---
Test Reason : STROKE PROTOCOL Blood Pressure : */* mmHG Vent. Rate : 108 BPM Atrial Rate : 108 BPM P-R Int : 154 ms QRS Dur : 86 ms QT Int : 342 ms P-R-T Axes : 65 0 53 degrees QTcB Int : 458 ms Sinus tachycardia Right atrial enlargement Borderline ECG When compared with ECG of 16-Dec-2022 16:02, No significant change was found Referred By: Gogo Wade Electronically Signed By: HARI ALMEIDA MD
[2025-08-15 21:20] LABS: Prothrombin Time Whole Bld POC 12.7 sec (11.1-13.5); ~PT, ~INR - Anti Coag Clinic 1.1 (0.9-1.1)
[2025-08-15 21:22] LABS: Glucose, Whole Blood 197 mg/dL (60-115)
--- NOTE | 2025-08-15 21:30 | PC.NURSE ---
x1 attempt of IV placement while in CT. Unsuccessful. Pt requesting PIV placement via US. BURKE Hughes to CT to obtained PIV placement and labs. Pt remains awake and alert, complaint of lightheadedness.
[2025-08-15 21:41] LABS: MANUAL DIFF FLAG NO
[2025-08-15] MEDS: iohexoL 350 MG/ML 100 ML INFUS..BTL IV (21:44)
[2025-08-15 21:45] LABS: Hematocrit 43.7 % (37.0-47.0); Hemoglobin 14.7 g/dl (12.0-16.0); Imm Gran Abs Auto 0.02 X10*3/uL (0.00-0.03); Imm Gran Pct Auto 0.2 % (0.0-0.4); Lymphocytes Absolute Auto 3.0 X10*3/uL (1.2-4.9); Mean Corpuscular HGB Conc 33.6 g/dl (31.0-35.0); Mean Corpuscular Hemoglobin 29.7 pg (27.0-33.0); Mean Corpuscular Volume 88.3 fL (80.0-98.0); NRBC Abs Auto 0.000 X10*3/uL (0.0-0.012); NRBC Pct Auto 0.0 /100WBC (0.0-0.2); Platelet Count 260 X10*3/uL (160-400); Red Blood Count 4.95 X10*6/uL (4.20-5.50); White Blood Count 9.7 X10*3/uL (4.8-10.8)
[2025-08-15 21:52] LABS: INTERNATIONAL NORM RATIO 1.1 (0.9-1.1); Prothrombin Time 13.2 SEC (11.2-13.5)
--- NOTE | 2025-08-15 21:54 | PC.NURSE ---
Dr. Wade to bedside, 10mg IV Labetalol to be given now due to elevated BP prior to administering TNK.
[2025-08-15 21:55] LABS: Partial Thromboplastin Time 29.6 SEC (26.7-34.1)
[2025-08-15 22:05] LABS: Troponin-I High Sensitivity 4.0 ng/L (<3.5-17.0)
[2025-08-15 22:10] LABS: Anion Gap 16 (12-20); Blood Urea Nitrogen 24 mg/dL (9-16); Calcium 9.5 mg/dL (8.4-10.2); Carbon Dioxide 23 mmol/L (22-29); Chloride 106 mmol/L (96-108); Cholesterol 204 mg/dL (<200); Creatinine Clr Calc Pharmacy 53.8; Estimated Glomerular Filt Rate 56; HDL Cholesterol 45 mg/dL (>40); Potassium 4.2 mmol/L (3.3-5.1); Sodium 141 mmol/L (135-145); Triglycerides 224 mg/dL (<150)
[2025-08-15 22:11] LABS: Stroke Lab Use COMPLETE
--- NOTE | 2025-08-15 22:19 | PC.NURSE ---
TNK administered at 2213, vitals remain stable. BP 152/63. Pt awake and alert. Remains with right hand weakness/numbness. Right eye remains blurry. Speech clear. No facial droop.
--- NOTE | 2025-08-15 22:24 | P.HPCC_ITS ---
History of Present Illness Date of Service: 08/15/25 Attending physician on admission: Mike Sue Chief Complaint: Acute ischemic stroke post TNK 75-year-old female with underlying history of TIA x 2, Bilateral , hypertension, hyperlipidemia, diabetes had presented to the emergency room with complaints of feeling unwell and having sudden onset right- hemianopsia on the lateral aspect of the right eye followed by R hand heaviness, weakeness and numbness.?Her last well known time was a p.m. connie, arrived to the emergency room at 09:15 and underwent a full stroke workup. In the ED, the patient was noted to be somewhat hypertensive, her laboratory workup is unremarkable with the exception of BUN to creatinine ratio of 26, glucose 197, triglycerides 224, total cholesterol 204, LDL 115.? Initial head CT showed no acute intracranial hemorrhage or pathology, follow-up head and neck CT angiogram are both negative.? NIH of 3.? The patient received labetalol IV push followed by TNK at 11/22/2004.? The patient will be admitted to the ICU for suspected ischemic stroke post TNK administration. [facility] Past Medical History Medical History Diabetes type 2, controlled Hyperlipidemia TIA (transient ischemic attack) Hx of respiratory syncytial virus infection Family History Family History Father Hypertension Heart disease Mother Hypertension Osteoporosis Diabetes Mental health disorder Surgical History Surgical History History of right salpingo-oophorectomy History of total replacement of right shoulder joint History of total right knee replacement Hx of laparoscopic gastric banding H/O lumpectomy Social History Social History Household Members: Spouse Household Members Other:: retired nurse, , 2 daughters, 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, Housing: House Alcohol intake: current Alcohol intake frequency: does not drink Patient Tobacco Use Status: Never used Tobacco Smoked in Last 30 Days: No e-Cigarette/Vaping Use: Never Used Use of substances other than those prescribed or required for medical reasons: No Advance Directives: Yes Advance Directives on File: Yes Advance Directives Date on File: 12/16/22 Do you have a plan to hurt others: No Plan service: No Current occupational status: retired Cognitive needs: No Hearing needs: No Vision needs: Yes Meds Allergies Allergy/AdvReac Type Severity Reaction Status Date / Time rofecoxib (From Vioxx) Allergy Intermediate went into Verified 08/15/25 21:49 CHF Penicillins Allergy Mild mold Verified 08/15/25 21:49 allergy NSAIDS (Non-Steroidal Allergy raises Verified 08/15/25 21:49 Anti-Inflamma cratinine level clarithromycin (From Biaxin) AdvReac Mild UPSET Verified 08/15/25 21:49 STOMACH meperidine (From Demerol) AdvReac Mild cofusion Verified 08/15/25 21:49 ineffective pain med Active Medications: Current Medications Acetaminophen (Acetaminophen 325 Mg Tablet) 650 mg PO Q6H PRN PRN Reason: Pain, Mild 1-3,fever,headache Sodium Chloride (0.9 % Sodium Chloride Flush 3 Ml Syringe) 3 ml IVFLUSH QSHIFT [facility] Home Medications ?Medication ?Instructions ?Recorded ?Confirmed ?Last Taken ?Type bupropion HCl 300 mg 24 hr tablet, 300 mg PO QAM 07/2111/28/24 Unknown History extended release escitalopram oxalate 20 mg tablet 20 mg PO DAILY 07/2111/28/24 Unknown History ropinirole 4 mg tablet 4 mg PO BID 07/21/22 5 Unknown History Physical Exam 2 Vital Signs: Vital Signs: Last Vital Signs Temp 98.8 F 08/15/25 21:51 Pulse 88 08/15/25 22:16 Resp 16 08/15/25 22:16 BP 152/63 H 08/15/25 22:16 Pulse Ox 97 08/15/25 22:16 O2 Del Method Room Air 08/15/25 22:16 BMI result Body Mass Index 38.3 General:? Alert oriented x3 no acute distress. No accessory muscle usage.? Following all commands. Skin:? Thin, Intact, no lesions, edema, erythema, clubbing or cyanosis.? No ulcers. HEENT:? Head is normocephalic, atraumatic, EOM I, pupils equal 2 mm bilaterally reactive to light and accommodation. Buccal mucosa is dry.? No cervical lymphadenopathy, bruits or masses. Cardiac:? Clear S1-S2, no murmurs rubs or gallops. Pulmonary:? Diminished lung sounds bilaterally fine expiratory wheezing bilaterally .? No crackles, rales or rhonchi. Abdomen:? Protuberant, positive bowel sounds in all 4 quadrants.? Soft, nontender, no rebound or guarding.? Musculoskeletal:? Right upper extremity weakness, the patient is unable to lift her arm it in front of her and lifts the arm from the bed to about 30 degrees. 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 Left upper extremity and bilateral lower extremities range of motion is intact and strength is 5/5. According to patient the strength has not worsened or improved after TNK. Neurologic:? As above.? Gross sensation bilaterally and throughout intact. Speaking in full sentences, following all commands. There is no facial droop. Gross visual acuity is intact bilaterally. Visual whittaker bilaterally and unilaterally are intact. Facial movements intact, tongue protrudes midline without any deviation. Normal shoulder shrugging. Strength of the extremities as above. The patient unable to perform rdenoj-jh-nedy test with the right hand due to weakness. Was able to perform rbfven-jo-owyr test accurately with the left hand with her eyes open and closed. Bilateral mbnb-zs-vraz test normal. Vascular:? 2+ pulses upper and lower extremities distally.? Less than 2nd capillary refill of fingers and toes bilaterally upper and lower extremities Results Labs 08/15/25 21:34 08/15/25 21:34 Labs: Laboratory Results - last 24 hr 08/15/25 08/15/25 08/15/25 21:15 21:16 21:34 MCV 88.3 MCH 29.7 MCHC 33.6 RDW 12.8 Plt Count 260 MPV 9.4 Immature Gran % (Auto) 0.2 Neut % (Auto) 60.7 Lymph % (Auto) 31.2 Gillespie % (Auto) 5.2 Eos % (Auto) 2.0 Baso % (Auto) 0.7 Lymph # (Auto) 3.0 Gillespie # (Auto) 0.5 Eos # (Auto) 0.2 Baso # (Auto) 0.1 Abs Immat Gran (auto) 0.02 Absolute Neuts (auto) 5.9 Absolute Nucleated RBC 0.000 Nucleated RBC % (auto) 0.0 PT 13.2 Whole Blood PT 12.7 INR 1.1 Whole Blood INR 1.1 APTT 29.6 Anion Gap 16 Estim Creat Clear Calc 53.8 Estimated GFR 56 POC Glucose 197 H Random Glucose 201 H Calcium 9.5 Troponin I High Sens 4.0 Triglycerides 224 H Cholesterol 204 H LDL Cholesterol, Calc 115 H HDL Cholesterol 45 Hold Yellow Top See Note Assessment and Plan (1) Acute stroke due to ischemia: Status: Acute Plan 1. Acute ischemic stroke post CVA post TNK 2. Right-sided weakness 3. Right eye lateral hemianopsia 4. Uncontrolled hypertension 5. History of diabetes mellitus type 2 6. History of hyperlipidemia PLAN OF CARE: The patient was admitted to the ICU, we will monitor vital signs, I's and o's and we will follow post TNK administration protocol.? According to the patient, her visual deficits improved after TNK, however the weakness persist as documented on the exam. We will monitor for any type of worsening symptoms or new symptoms such as nausea, vomiting, double or blurry vision, headache, increased weakness among others.? For now she will be NPO until a bedside swallow evaluation is done at which point she may receive full-dose statin for plaque stabilization.? Avoid NSAIDs or aspirin products for the next 24 hours.? The patient will have a formal neuro evaluation tomorrow morning, PT, OT and speech evaluation. If there are no adverse events to the TNK administration, follow-up and MRI will be done in the next 24 hours (22:20 tomorrow).? Meanwhile insulin sliding scale and allow liberalize hypertension. Given recurrent strokes, patient may be a candidate for lifetime anticoagulation for future stroke prevention. the patient does have a BAHA device on the left, therefore she will need a low-dose MRI as she has had this in the past. GI PROPHYLAXIS: ?IV famotidine DVT PROPHYLAXIS:? Pneumatic stockings only
--- NOTE | 2025-08-15 22:24 | ED.NEUROSD ---
HPI - Neuro Symptoms/Deficit General Chief Complaint: Stroke Stated Complaint: rt eye stroke/all over doesn't feel right Time Seen by Provider: 08/15/25 21:15 History of Present Illness HPI Narrative: patient is a 75-year-old female presented today with having sudden onset of right-sided weakness clumsiness also and hemianopsia on the lateral aspect of the right eye. Patient is from home. last known well time was 20:00. Patient arrived in the ED at approximately 09:15. Was taken to the CAT scanner as stroke alert was called immediately. Has a history of diabetes. Related Data Home Medications ?Medication ?Instructions ?Recorded ?Confirmed bupropion HCl 300 mg 24 hr tablet, 300 mg PO QAM 07/21/22 11/28/24 extended release escitalopram oxalate 20 mg tablet 20 mg PO DAILY 07/21/22 11/28/24 ropinirole 4 mg tablet 4 mg PO BID 07/21/22 11/28/24 Previous Rx's ?Medication ?Instructions ?Recorded blood-glucose meter #1 ea 03/01/23 atorvastatin 40 mg tablet 40 mg PO DAILY #90 tabs 11/28/24 metformin 500 mg tablet 500 mg PO TID #270 tabs 11/28/24 triamterene 37.5 1 tab PO DAILY #90 tabs 11/28/24 mg-hydrochlorothiazide 25 mg tablet blood-glucose meter (OneTouch #1 ea 11/29/24 Verio Flex Meter) blood sugar diagnostic (OneTouch #100 ea 12/03/24 Verio test strips) lancets 30 gauge ([facility] ea 12/03/24 Plus Lancet) tirzepatide 2.5 mg/0.5 mL 2.5 mg (0.5 mL) subcut QWEEK #6 mL 01/30/25 subcutaneous pen injector (Mounjaro) metoprolol succinate 25 mg 25 mg PO DAILY #90 tabs 02/08/25 tablet,extended release 24 hr tirzepatide 5 mg/0.5 mL 5 mg (0.5 mL) subcut QWEEK #6 mL 03/20/25 subcutaneous pen injector (Mounjaro) Allergies Allergy/AdvReac Type Severity Reaction Status Date / Time rofecoxib (From Vioxx) Allergy Intermediate went into Verified 08/15/25 21:49 CHF Penicillins Allergy Mild mold Verified 08/15/25 21:49 allergy NSAIDS (Non-Steroidal Allergy raises Verified 08/15/25 21:49 Anti-Inflamma cratinine level clarithromycin (From Biaxin) AdvReac Mild UPSET Verified 08/15/25 21:49 STOMACH meperidine (From Demerol) AdvReac Mild cofusion Verified 08/15/25 21:49 ineffective pain med Review of Systems Review of Systems: Positive right arm clumsiness positive change in vision no change in voice. Yes all other systems are reviewed and are negative FOR[facility]LY [facility], [facility] Past Medical History Medical History Diabetes type 2, controlled Hyperlipidemia TIA (transient ischemic attack) Hx of respiratory syncytial virus infection Surgical History History of right salpingo-oophorectomy History of total replacement of right shoulder joint History of total right knee replacement Hx of laparoscopic gastric banding H/O lumpectomy Family History Family History Father Hypertension Heart disease Mother Hypertension Osteoporosis Diabetes Mental health disorder Social History Social History Household Members: Spouse Household Members Other:: retired nurse, , 2 daughters, 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, Housing: House Alcohol intake: current Alcohol intake frequency: does not drink Patient Tobacco Use Status: Never used Tobacco Smoked in Last 30 Days: No e-Cigarette/Vaping Use: Never Used Use of substances other than those prescribed or required for medical reasons: No Advance Directives: Yes Advance Directives on File: Yes Advance Directives Date on File: 12/16/22 Do you have a plan to hurt others: No Plan service: No Current occupational status: retired Cognitive needs: No Hearing needs: No Vision needs: Yes Physical Exam Exam: Exam: Appearance: Alert. Oriented X3. No acute distress. Eyes: Pupils equal, round and reactive to light. ENT: Pharynx normal. Neck: Normal inspection. Neck supple. No lymph nodes noted. No crepitus CVS: Normal heart rate and rhythm. Pulses normal. Normal S1 and S2 Respiratory: No respiratory distress. Breath sounds normal. No Wheezing. No rales Abdomen: Soft and nontender. No rigidity. No distention. good BS x4 Skin: Skin warm and dry. Normal skin color. Normal skin turgor. Extremities: No lower extremity edema. Neurovascular intact to all extremities. No Lacerations. No Rash Neuro: Oriented X 3. No motor deficit. Positive clumsiness in the right upper extremity. Positive right hemianopsia Vital Signs: Vital Signs: Last Vital Signs Temp 98.8 F 08/15/25 21:51 Pulse 88 08/15/25 22:16 Resp 16 08/15/25 22:16 BP 152/63 H 08/15/25 22:16 Pulse Ox 97 08/15/25 22:16 O2 Del Method Room Air 08/15/25 22:16 BMI result Body Mass Index 38.3 Medications Administered Discontinued Medications Generic Name Dose Route Start Last Admin Trade Name Freq PRN Reason Stop Dose Admin Iohexol 100 ml 08/15/25 21:40 08/15/25 21:44 Iohexol 350 Mg/Ml 100 Ml Infus..Btl IV 08/15/25 21:41 70 ml ONCE ONE Administration Labetalol HCl 10 mg 08/15/25 22:04 08/15/25 21:57 Labetalol Hcl 100 Mg/20 Ml Vial IVPUSH 08/15/25 22:05 10 mg ONCE ONE Administration Tenecteplase 24 mg 08/15/25 22:04 08/15/25 22:13 Tenecteplase 50 Mg/10 Ml Kit IVPUSH 08/15/25 22:05 24 mg ONCE ONE Administration Medical Decision Making Medical Decision Making [facility] Narrative: positive loss in vision positive clumsiness in the right upper extremity patient's NIH stroke scale was a 3 has a sudden onset. Patient symptoms did not improve over time sugar was over 100 no evidence for hypoglycemia. Patient CTA angio showed no large vessel occlusion I discussed the case with neurology on-call patient's CT head did not show any bleed but did have some artifact. CTA angio was read as negative. Given the sudden in onset given the persistent of symptoms elected to give the TNK. The initial blood pressure was elevated. We give 1 dose of labetalol with good results blood pressure is now in the 130/80 range. I did a bedside ultrasound of patient's right eye. I did not appreciate any vitreous detachment or retinal detachment. TNK was then given. Differential Diagnosis Differential Diagnoses: The differential diagnosis associated with the presentation includes CVA, hypoglycemia, Admission/Observation Consideration of admission/observation: Escalation of care including admission/observation considered Consult Healthcare Provider Management of the patient was discussed with: Interlocker ( security advisor, Neurology) Lab Data MDM Lab Attestation statement: I reviewed the patient's lab results. 08/15/25 21:34 08/15/25 21:34 Labs: Lab Results 08/15/25 08/15/25 08/15/25 Range/Units 21:15 21:16 21:34 WBC 9.7 (4.8-10.8) X10*3/uL RBC 4.95 (4.20-5.50) X10*6/uL Hgb 14.7 (12.0-16.0) g/dl Hct 43.7 (37.0-47.0) % MCV 88.3 (80.0-98.0) fL MCH 29.7 (27.0-33.0) pg MCHC 33.6 (31.0-35.0) g/dl RDW 12.8 (11.0-16.0) % Plt Count 260 (160-400) X10*3/uL MPV 9.4 (9.4-12.3) fL Immature Gran % (Auto) 0.2 (0.0-0.4) % Neut % (Auto) 60.7 (45-73) % Lymph % (Auto) 31.2 (20-40) % Traill % (Auto) 5.2 (2-11) % Eos % (Auto) 2.0 (0-4) % Baso % (Auto) 0.7 (0-2) % Lymph # (Auto) 3.0 (1.2-4.9) X10*3/uL Traill # (Auto) 0.5 (0.1-1.2) X10*3/uL Eos # (Auto) 0.2 (0.0-0.4) X10*3/uL Baso # (Auto) 0.1 (0.0-0.2) X10*3/uL Abs Immat Gran (auto) 0.02 (0.00-0.03) X10*3/uL Absolute Neuts (auto) 5.9 (2.0-8.3) x10*3/uL Absolute Nucleated RBC 0.000 (0.0-0.012) X10*3/uL Nucleated RBC % (auto) 0.0 (0.0-0.2) /100WBC PT 13.2 (11.2-13.5) SEC Whole Blood PT 12.7 (11.1-13.5) sec INR 1.1 (0.9-1.1) Whole Blood INR 1.1 (0.9-1.1) APTT 29.6 (26.7-34.1) SEC Sodium 141 (135-145) mmol/L Potassium 4.2 (3.3-5.1) mmol/L Chloride 106 (96-108) mmol/L Carbon Dioxide 23 (22-29) mmol/L Anion Gap 16 (12-20) BUN 24 H (9-16) mg/dL Creatinine 0.97 (0.5-1.4) mg/dL Estim Creat Clear Calc 53.8 Estimated GFR 56 POC Glucose 197 H (60-115) mg/dL Random Glucose 201 H (60-115) mg/dL Calcium 9.5 (8.4-10.2) mg/dL Troponin I High Sens 4.0 (<3.5-17.0) ng/L Triglycerides 224 H (<150) mg/dL Cholesterol 204 H (<200) mg/dL LDL Cholesterol, Calc 115 H (<100) mg/dL HDL Cholesterol 45 (>40) mg/dL Hold Yellow Top See Note Independent Interpretation I performed an independent interpretation of an: EKG ( sinus heart rate is 110 VT QRS QTC normal no acute ST segment elevation.) Radiology Impression Discussion of test interpretation with radiology: I have reviewed the radiologist's reading. Independent Historian Clinical information obtained from an independent historian. History obtained from or confirmed by: Spouse and EMS External Record Review External record reviewed: Inpatient record Chronic Conditions Patient?s care impacted by: Diabetes Social Determinants Patient?s care significantly limited by Social Determinants of Health including: Problems related to primary support group NIH Stroke Scale Internal: Initial- Upon Arrival Time: 21:28 Level of Consciousness: Alert Level of Consciousness Questions: Answers both questions correctly Level of Consciousness Commands: Performs both tasks correctly Best Gaze: Normal Visual: Partial hemianopia Facial Palsy: Normal Motor Arm (Right): No drift Motor Arm (Left): No drift Motor Leg (Right): No drift Motor Leg (Left): No drift Limb Ataxia: Present in one limb Sensory: Mild to moderate sensory loss Best Language: No aphasia Dysarthia: Normal Extinction and Inattention: No abnormality Score: 3 Critical Care Time Critical Care Time Critical Care Time: Yes Total Critical Care Time: 40 Attestation: I have personally provided 40 minutes of critical care time exclusive of time spent on separately billable procedures. Time includes review of lab data, radiology results, discussion with consultants, and monitoring for potential decompensation. Interventions were performed as documented above Discharge Plan Discharge Clinical Impression: Acute CVA (cerebrovascular accident) Patient Disposition: Admitted As Inpatient
--- OUTSIDE RECORDS SUMMARY | 2025-08-15 22:30 | XMS_ITS | Patient Health Record ---
Author Organization [facility] sandra AtkinsonVic Address [address] [place] [address] Care Team Providers Care Search Specialist Name Role Phone Dick Zhao MD Primary Care Provider Rodrigo Meneses Unavailable [phone] Allergies Allergen (clinical drug ingredient) Drug/Non Drug Allergy documented on EMR Reaction Allergy Type Onset Date Status Biaxin gastritis Drug Allergy Active meperidine Demerol can't remember Drug Allergy A ctive Penicillin allergy to mold Drug Allergy Active adhesive tape rash Drug Allergy Act darrian Reason For Referral No Information Medications Medication SIG (Take, Route, Fr equency, Duration) Notes Start Date End Date Status Ibuprofen Active Fish Oil 1000 MG 1 capsule Orally Onc e a day; Duration: 30 day(s) Active Estrace Active Dyazide Active Avapro Active Vitamin E Active Simvastatin Active Multivitamins Active Magnesium Citrate Ac tive Plan Of Treatment Pending Test Test Name Order Date [id number] Plate 04/19/2016 [id number] <25 sq cm 05/05/2016 Insurance Providers Payer Name Payer Address Payer Phone Subscriber Number Group Number Insured Name Patient Relationship to Insured Coverage Start Date Coverage End Date Medicare [facility] [address] [place] [phone] [id number] Maryann Barlow Self - patient is the insured [facility] Claims [facility] Office of Community Care [address] [address] [place] [address] [phone] [id number] Maryann Barlow Self - patient is the insured Medical (General) History Medical History History ICD Code Arthritis scarlet fever neuropathy measles hypertension headaches/migraines depression chicken pox cancer back, hip, knee pain Surgical History Surgery Date(Month/Year) hand/wrist 2006,2007
--- OUTSIDE RECORDS SUMMARY | 2025-08-15 22:30 | XMS_ITS | Clinical Summary ---
Author Organization [facility] Address [address] [facility] [address] [place] [address] Phone Care Team Providers Care Sound Technician Supervisor Name Role Phone Ami Aponte MD Primary Care Provider [phone] Allergies Active Allergy Reactions Criticality Noted Date Comments Clarithromycin GI Upset 03/25/2021 Meperidine 07/30/2019 Nsaids (Non-Steroidal Anti-Inflammatory Drug) 04/08/2025 Other Reaction(s): raise creatine Penicillins 07/30/2019 Rofecoxib Other (See Comments) 04/02/1997 Other Reaction(s): WENT INTO CHF Medications escitalopram oxalate (LEXAPRO) 20 MG tablet Take 20 mg by mouth daily. Active buPROPion (WELLBUTRIN XL) 300 MG ER 24 hr tablet Take 300 mg by mouth daily. Active rOPINIRole (REQUIP) 4 MG tablet Take 4 mg by mouth 2 (two) times a day. Active tirzepatide (MOUNJARO) 2.5 mg/0.5 mL PnIj subcutaneous pen Inject 2.5 mg under the skin once a week. Active blood sugar diagnostic Strp strips every morning. Onetouch verio test strips Active atorvastatin (LIPITOR) 40 MG tablet Take 40 mg by mouth daily. Active metFORMIN (GLUCOPHAGE) 500 MG tablet Take 500 mg by mouth 3 (three) times a day. Active triamterene-hydr oCHLOROthiazide (MAXZIDE-25) 37.5-25 mg per tablet Take 1 tablet by mouth daily. Active metoprolol succinate (TOPROL-XL) 25 MG 24 hr tablet Take 25 mg by mouth daily. Active blood-glucose Misc meter Active lancets 30 gauge Misc Active oxyCODONE 5 MG immediate release tabletIndication s:Basal cell carcinoma of right ala nasi Take 1 tablet (5 mg total) by mouth every 6 (six) hours as needed for pain (specific location in comments) (For severe postoperative pain). 3 tablet 06/26/20 25 Active Active Problems Problem Noted Date Diagnosed Date Type 2 diabetes mellitus with peripheral neuropa thy 04/10/2025 Assessment & Plan (04/10/2025 4:08 PM EDT): Diagnosed with diabetes in 2022. Has peripheral neuropathy on exam with symptoms. Foot & nail care good. She is up to date w/ ophtho. Control appears reasonable, if not optimal on current dose of metformin & low dose of mounjaro. She is tolerating mounjaro well & has the next dose she will be starting soon. Also advised her now that she has been on metformin/tolerating ok to try shifting to 1 tablet am, 2 tablets pm with food to simplify regimen. Will repeat labs today to check hba1c, urine microalbumin. Continue to work on eating healthy & keeping active. To call/message us with problems with glycemic control. Acquired hypothyroidism 04/10/2025 Assessment & Plan (04/10/2025 4:04 PM EDT): Was diagnosed with hypothyroidism years ago, put on rx. TSH was recently mildly high off of rx. Will repeat. If TSH < 10 & feeling well, no definite need for rx. Thyroid nodule 04/10/2025 Assessment & Plan (04/10/2025 4:06 PM EDT): Incidental finding of 1.3 cm TIRADS 3 nodule which does not require follow up based on current guidelines. Will obtain/review images. Carotid artery stenosis 04/08/2025 LVH (left ventricular hypertrophy) 04/08/2025 Restless leg syndrome 04/08/2025 Vitamin D deficiency 10/03/2022 Allergic rhinitis 08/05/2022 Overview (04/08/2025): Allergic rhinitis: Due to other allergen; Note: Date Diagnosed: 08/05/2022 1:21 PM (477.8) Allergic rhinitis: Due to other allergen; Note: Date Diagnosed: 06/29/2022 10:40 AM (477.8) ; Start Date : 06/29/2022 Allergic rhinitis: Due to other allergen; Note: Date Diagnosed: 04/27/2022 3:01 PM (477.8) ; Start Date : 04/27/2022 Allergic rhinitis: Due to other allergen; Note: Date Diagnosed: 03/19/2022 1:43 PM (477.8) ; Start Date : 03/19/2022 Allergic rhinitis: Due to other allergen; Note: Date Diagnosed: 03/02/2022 2:29 PM (477.8) ; Start Date : 03/02/2022 Allergic rhinitis: Due to other allergen; Note: Date Diagnosed: 01/06/2022 1:09 PM (477.8) ; Start Date : 01/06/2022 Allergic rhinitis: Due to other allergen; Note: Date Diagnosed: 11/20/2021 10:25 AM (477.8) ; Start Date : 11/20/2021 Allergic rhinitis: Due to other allergen; Note: Date Diagnosed: 07/31/2021 11:34 AM (477.8) ; Start Date : 07/31/2021 Allergic rhinitis: Due to other allergen; Note: Date Diagnosed: 07/17/2021 2:07 PM (477.8) ; Start Date : 07/17/2021 Allergic rhinitis: Due to other allergen; Note: Date Diagnosed: 05/20/2021 1:12 PM (477.8) ; Start Date : 05/20/2021 Allergic rhinitis: Due to other allergen; Note: Date Diagnosed: 04/29/2021 1:07 PM (477.8) ; Start Date : 04/29/2021 Allergic rhinitis: Due to other allergen; Note: Date Diagnosed: 03/10/2021 10:02 AM (477.8) ; Start Date : 03/10/2021 Allergic rhinitis: Due to other allergen; Note: Date Diagnosed: 01/20/2021 1:13 PM (477.8) ; Start Date : 01/20/2021 Allergic rhinitis: Due to other allergen; Note: Date Diagnosed: 01/16/2021 10:18 AM (477.8) ; Start Date : 01/16/2021 Allergic rhinitis: Due to other allergen; Note: Date Diagnosed: 01/08/2021 1:39 PM (477.8) ; Start Date : 01/08/2021 Allergic rhinitis: Due to other allergen; Note: Date Diagnosed: 12/30/2020 11:18 AM (477.8) ; Start Date : 12/30/2020 Allergic rhinitis: Due to other allergen; Note: Date Diagnosed: 12/26/2020 10:03 AM (477.8) ; Start Date : 12/26/2020 Allergic rhinitis: Due to other allergen; Note: Date Diagnosed: 12/19/2020 2:12 PM (477.8) ; Start Date : 12/19/2020 Allergic rhinitis: Due to other allergen; Note: Date Diagnosed: 12/09/2020 10:55 AM (477.8) ; Start Date : 12/09/2020 Allergic rhinitis: Due to other allergen; Note: Date Diagnosed: 12/02/2020 9:21 AM (477.8) ; Start Date : 12/02/2020 Allergic rhinitis: Due to other allergen; Note: Date Diagnosed: 11/13/2020 10:13 AM (477.8) ; Start Date : 11/13/2020 Allergic rhinitis: Due to other allergen; Note: Date Diagnosed: 10/30/2020 10:06 AM (477.8) ; Start Date : 10/30/2020 Allergic rhinitis: Due to other allergen; Note: Date Diagnosed: 10/23/2020 11:44 AM (477.8) ; Start Date : 10/23/2020 Allergic rhinitis: Due to other allergen; Note: Date Diagnosed: 10/08/2020 2:04 PM (477.8) ; Start Date : 10/08/2020 Allergic rhinitis: Due to other allergen; Note: Date Diagnosed: 10/01/2020 11:09 AM (477.8) ; Start Date : 10/01/2020 Allergic rhinitis: Due to other allergen; Note: Date Diagnosed: 09/04/2020 10:15 AM (477.8) ; Start Date : 09/04/2020 Allergic rhinitis: Due to other allergen; Note: Date Diagnosed: 08/20/2020 2:34 PM (477.8) ; Start Date : 08/20/2020 Allergic rhinitis: Due to other allergen; Note: Date Diagnosed: 08/15/2020 9:54 AM (477.8) ; Start Date : 08/15/2020 Allergic rhinitis: Due to other allergen; Note: Date Diagnosed: 07/22/2020 10:48 AM (477.8) ; Start Date : 07/22/2020 Allergic rhinitis: Due to other allergen; Note: Date Diagnosed: 07/11/2020 10:53 AM (477.8) ; Start Date : 07/11/2020 Allergic rhinitis: Due to other allergen; Note: Date Diagnosed: 06/25/2020 9:38 AM (477.8) ; Start Date : 06/25/2020 Allergic rhinitis: Due to other allergen; Note: Date Diagnosed: 06/13/2020 11:47 AM (477.8) ; Start Date : 06/13/2020 Allergic rhinitis: Due to other allergen; Note: Date Diagnosed: 06/04/2020 9:47 AM (477.8) ; Start Date : 06/04/2020 Allergic rhinitis: Due to other allergen; Note: Date Diagnosed: Obstructive sleep apnea syndrome 10/23/2020 Overview (04/08/2025): Obstructive sleep apnea (adult) (pediatric); Note: Date Diagnosed: 10/23/2020 11:24 AM (G47.33) Migraine 01/17/2019 Overview (04/08/2025): Other migraine, not intractable, without status migrainosus; Note: Date Diagnosed: 01/17/2019 2:26 PM (G43.809) Nasal congestion 01/11/2017 Overview (04/08/2025): Nasal congestion; Note: Date Diagnosed: 01/11/2017 10:42 AM (R09.81) Sensorineural hearing loss (SNHL) of both ears 1 Overview (04/08/2025): Sensorineural hearing loss, unilateral, left ear, with unrestricted hearing on the contralateral side; Note: Date Diagnosed: 07/23/2015 2:02 PM (H90.42) Irritable bowel syndrome 09/14/2012 Pure hypercholesterolemia 09/14/2012 Idiopathic osteoporosis 09/14/2012 Well-controlled hypertension 01/04/2010 Anxiety and depression 10/03/1989 detention current use of oral hypoglycemic drug Long-term current use of inj ectable noninsulin antidiabetic medication Encounters Date Type Department Care Team Description 07/01/2025 2:00 PM EDT Nurse Only [facility] [address] [place] [address] Abdon Bowen MD, PhD Basal cell carcinoma of right ala nasi (Primary Dx) 06/26/2025 Telephone [facility] [address] [place] [address] [address] [place] [phone] Cristal Blandon RN 06/26/2025 Telephone [facility] [address] [place] [address] [address] [place] [address] Cristal Blandon RN 06/25/2025 Telephone [facility] [address] [place] [address] [address] [place] [address] Cristal Blandon RN 06/24/2025 8:30 AM EDT Office Visit [facility] [address] [place] [address] Abdon Bowen MD, PhD Basal cell carcinoma of right ala nasi (Primary Dx) 05/22/2025 Transcribe Orders [facility] [address] [place] [address] Louise Champagne, PA Basal cell carcinoma of right side of nose (Primary Dx) 05/21/2025 Orders Only [facility] [address] [place] [address] [address] Provider, MD Servando 05/16/2025 Telephone [facility] [address] [place] [address] [place] [address] Tiffany Villegas MA Labs from Last 3 Months Immunizations Immunization Administration Dates Next Due COVID-19 (Pre-07/25) Pfizer Vaccine, mRNA, PF 07/18/2024,07/07/2021,12/13/2020,11/20 INFLUENZA, SPLIT VIRUS, TRIV ALENT W/ PRESERVATIVE IM 07/14/2023 Influenza High-Dose Quadriva lent Preservative Free IM 10/23/2022 Pneumococcal conjugate PCV13 07/14/2023 Pneumococcal polysaccharide PPSV23 11/11/2014 RSV Vaccine (bivalent) 07/18/2024,07/20/2023 Zoster recombinant 07/18/2024 Family History Medical History Relation Comments Diabetes type II Brother Diabetes type II Daughter Diabetes type II Maternal Grandfather Diabetes type II Maternal Uncle Diabetes type II Mother Diabetes type II Paternal Great-Grandfather Thyroid disease Neg Hx Relation Status Comments Brother Daughter Alive Maternal Grandfather Maternal Uncle Mother Paternal Great-Grandfather Social History Tobacco Use Types Packs/Day Years Used Date Smoking Tobacco: Never Smokeless Tobacco: Never Alcohol Use Standard Drinks/Week Comments Yes 0 (1 standard drink = 0.6 oz pur e alcohol) very rare Education Answer Date Recorded Are you interested in more education? Not on adriana e 01/28/2023 Are you concerned about learning? Not on file 01/28/2023 No 01/28/2023 No 01/28/2023 Digital Access Answer Date Recorded No 02/28/2023 No 02/28/2023 Reliable internet access at home? Not on file 02/28/2023 Device with a working camera? Not on file Comments Unknown Sex and Gender Information Value Date Recorded Sex Assigned at Not on file Legal Sex Female 10:02 PM EDT Gender Identity Female 04/02/2025 1:51 PM EDT Sexual Orientation Not on file Last Filed Vital Signs Vital Sign Reading Time Taken Comments Blood Pressure 124/78 06/24/2025 8:42 AM EDT Pulse 63 06/24/2025 8:42 AM EDT Temperature 36.4 C (97.6 F) 06/24/2025 8:42 AM EDT Respiratory Rate 16 04/08/2025 1:53 PM EDT Oxygen Saturation 98% 06/24/2025 8:42 AM EDT Inhaled Oxygen Concentration - - Weight 100.8 kg (222 lb 3.2 oz) 04/08/2025 1:53 PM EDT Height 154.9 cm (5' 1 ) 04/08/2025 1:53 PM EDT Body Mass Index 41.98 04/08/2025 1:53 PM EDT Plan of Treatment Upcoming Encounters Date Type Department Care Team (Late st Contact Info) Description 08/27/2025 3:00 PM EST Office Visit [facility] [address] [facility] [address] [place] [address] Abdon Bowen MD, PhD [address] [place], [place] [phone] [address] [email or web address] 10/07/2025 11:20 AM EST Office Visit [facility] Endocrinology [address] [address] Anne-Marie Mckeon MD [address] [place] [phone] [email or web address] 10/29/2025 2:00 PM EST Office Visit [facility] [address] [facility] [address] [place] [address] Abdon Bowen MD, PhD [address] [place] [phone] [email or web address] Health Maintenance Due Date Last Done Comments Adult Td,Tdap Booster 1950 DEPRESSION SCREENING 1962 HEPATITIS C SCREENING 02/23/1968 COLOGUARD 1995 COLONOSCOPY 1995 COLORECTAL CANCER SCREENING 1995 FIT TEST 1995 FOBT 1995 SIGMOIDOSCOPY 1995 VIRTUAL COLONOSCOPY 1995 ZOSTER VACCINES (2 of 2) 09/12/2024 07/18/2024 DIABETIC EYE EXAM 04/08/2025 URINE MICROALBUMIN/CREATININE RATIO 04/08/2025 INFLUENZA VACCINE (#1) 2025 07/14/2023, 2022 COVID-19 VACCINE ( season) 2025 07/18/2024, 07/07/2021, 12/13/2020, Additional history exists HEMOGLOBIN A1C 10/09/2025 04/08/2025, 10/21/2022 BLOOD PRESSURE 12/22/2025 06/24/2025 CREATININE LEVEL 05/04/2026 05/04/2025, 01/10/2025 POTASSIUM LEVEL 05/04/2026 05/04/2025, 12/14/2024 PNEUMOCOCCAL VACCINES (50+ years) (3 of 3 - PCV20 or PCV21) 07/14/2028 07/14/2023, 11/11/2014 OSTEOPOROSIS SCREENING INITIAL (ONE-TIME) Completed 09/16/2022 RSV VACCINE Completed 07/18/2024, 07/20/2023 SMOKING STATUS SCREENING (Once After 26 Yrs) Completed 06/24/2025 HEPATITIS A VACCINES Aged Out No long er eligible based on patient's age to complete this topic HIB VACCINES Aged Out No longer eligi ble based on patient's age to complete this topic MENINGOCOCCAL VACCINES (ACWY) Aged Out No longer eligible based on patient's age to complete this topic MENINGOCOCCAL VACCINES (B) Aged Out N o longer eligible based on patient's age to complete this topic Medical Devices Not on file Procedures Procedure Name Priority Date/Time Associated Diagnosis Comments DERMATOPATHOLOGY Routine 05/21/2025 11:5 6 AM EDT BASIC METABOLIC PANEL (BMP) Routine 05/04/2025 1:35 PM EDT Type 2 diabetes mellitus with peripheral neuropathy HEMOGLOBIN A1C Routine 04/08/2025 3:13 PM EDT Type 2 diabetes mellitus with peripheral neuropathy HM DEXA SCAN Routine 09/16/2022 2:38 PM EST from Last 3 Months or Most Recently Relevant to Health Maintenance Results * Dermatopathology (05/21/2025 11:56 AM EDT) us Historical Provider PATHOLOGY ORDERABLES Cyndie l Result * Basic metabolic panel (05/04/2025 1:35 PM EDT) Blood us Anne-Marie Mckeon MD LAB BLOOD BKR ORDERABL ES Final Result [address] [address] * (ABNORMAL) Hemoglobin A1c (04/08/2025 3:13 PM EDT) HEMOGLOBIN A1C 7.7(H) 4.3 - 5.8 % [facility] Blood 04/08/2025 3:13 PM EDT 04/08/2025 3:17 PM EDT Anne-Marie Mckeon MD LAB BLOOD BKR ORDERABL ES Final Result [address] [address] * DEXA SCAN (09/16/2022 2:38 PM EST) Impressions SarahieldaSierra roldan, CHIROPRACTIC TEACHER - 09/16/2022 2:38 PM EST normal Historical Provider HEALTH MAINTENANCE Edited Result - Final from Last 3 Months or Most Recently Relevant to Health Maintenance Insurance [place] [id number] [place] [address] MEDICARE PART A & B [facility] Address: [facility] ATTN: CLAIMS [address] [address] [place] [address] MEDICARE PART A & [place] [facility] [address] MEDICARE PART A & [place] [facility] [address] MEDICARE PART A & [place] [address] MEDICARE PART A & [place] [address] MEDICARE PART A & [place] [facility] [address] MEDICARE PART A & [place] [facility] [address] MEDICARE PART A & B [facility] Address: [facility] CARE ATTN: CLAIMS [address] [address] [place] [address] Care Teams Sound Technician Supervisor Relationship Specialty Start Date End Date Ami Aponte MD [facility] [place] [address] PCP - General Internal Medicine 08/21/24 Additional Source Comments The information contained in this document represents components of the legal health record. It is not the complete legal health record.[facility]
--- OUTSIDE RECORDS SUMMARY | 2025-08-15 22:30 | XMS_ITS | Patient Health Record ---
Author Organization [facility] Address [address] [place] [address] Care Team Providers Care Supervisor Frame Sample And Pattern Name Role Phone Ami Aponte MD Primary Care Provider Cory To Unavailable [phone] Reason For Referral No Information Plan Of Treatment Next Appt Details Provider Name:Cory Neal , 09/25/2025 10:00:00 AM, [address], [address], [place], [address], Insurance Providers Payer Name Payer Address Payer Phone Subscriber Number Group Number Insured Name Patient Relationship to Insured Coverage Start Date Coverage End Date MEDICARE OF [place] [address] [place] [address] [id number] KARRI VENEGAS Self - patient is the insured [facility] [address] [address] [place] [id number] KARRI VENEGAS Self - patient is the insured
--- OUTSIDE RECORDS SUMMARY | 2025-08-15 22:31 | XMS_ITS | Data Portability ---
Author Organization [facility], [facility] Address [address] [place] [address] Care Team Providers Care Food Sanitarian Name Role Phone PÉREZ KAHN Referring Provider PÉREZ KAHN Primary Care Provider Assessment Encounter Date Assessment Date Assessment LastModified by Organization Details LastModified Time 03/22/2025 03/22/2025 Assessment: Pt cont to demonstrate good marlen for rx-able to increase wts today. Plan: Continue to progress rom UE strengthening as marlen. [email or web address] Not available 03/22/2025 12:09:00 04/12/2025 04/12/2025 Assessment: Pt demonstrates minimal loss in prom-difficulty elevating UE. Plan: Continue to progress rom and UE strengthening as marlen. [email or web address] Not available 04/12/2025 15:18:39 04/18/2025 04/18/2025 Assessment: Pt demonstrates ongoing limited shoulder rom-better marlen for rx today. Advised pt to resume gentle strengthening at home. Plan: Continue to progress rom and UE strengthening as marlen. [email or web address] Not available 04/18/2025 14:05:11 04/25/2025 04/25/2025 Assessment: Pt self admits to not doing much at home due to her dog being sick-review of HEP today. Plan: Continue to progress rom and UE strengthening as marlen. [email or web address] Not available 04/25/2025 11:23:59 05/03/2025 05/03/2025 Assessment: Pt demonstrates improved flexion and ER, IR remains tight. Plan: Continue to progress rom and UE strengthening as marlen. [email or web address] Not available 05/03/2025 15:17:21 Plan of Treatment Reminders Order Date Submit Date Provider Last Modified By Organization Details Last Modified Time Details Appointments None record ed. Lab None record ed. Referral None record ed. Procedures None record ed. Surgeries None record ed. Imaging None record ed. Medication Orders None record ed. Patient TargetsNo targets recorded. Patient InstructionsNo instructions recorded. Reason for Referral None Reported. Procedures Surgical History Date Name Laterality Status Provider Name and Address Organization Details Recorded Time 5 01059 Therapeutic Exercise (1:1) completed Joceline Aguirre, DAVID [address], [place], [address], [facility] 05/02/2025 08:49:04 5 71832: Manual therapy completed Joceline Aguirre PTA [address], [place], [address], [facility] 05/02/2025 08:49:04 5 58396 Therapeutic Exercise (1:1) completed Joceline Aguirre, DAVID [address], [place], [address], [facility] 04/25/2025 09:52:07 5 07866: Manual therapy completed Joceline Aguirre PTA [address], [place], [address], [facility] 04/25/2025 09:52:13 5 69537 Therapeutic Exercise (1:1) completed Joceline Aguirre PTA [address], [place], [address], [facility] 04/18/2025 14:05:26 5 20840: Manual therapy completed Joceline Aguirre PTA [address], [place], [address], [facility] 04/18/2025 14:05:29 5 69038 Therapeutic Exercise (1:1) completed Joceline Aguirre PTA [address], [place], [address], [facility] 04/11/2025 10:37:04 5 80228: Manual therapy completed Joceline Aguirre, TELEVISION NEWSCAST DIRECTOR [address], [place], [address], [facility] 04/11/2025 10:37:04 5 83363 Therapeutic Exercise (1:1) cancelled Joceline Aguirre, TELEVISION NEWSCAST DIRECTOR [address], [place], [address], [facility] 03/26/2025 15:05:14 5 54569: Manual therapy cancelled Joceline Aguirre, TELEVISION NEWSCAST DIRECTOR [address], [place], [address], [facility] 03/26/2025 15:05:14 5 09226 Therapeutic Exercise (1:1) completed Joceline Aguirre, TELEVISION NEWSCAST DIRECTOR [address], [place], [address], [facility] 03/21/2025 19:36:50 5 22685: Manual therapy completed Joceline Aguirre TELEVISION NEWSCAST DIRECTOR [address], [place], [address], [facility] 03/21/2025 19:36:50 5 70536 Therapeutic Exercise (1:1) cancelled Joceline Aguirre, TELEVISION NEWSCAST DIRECTOR [address], [place], [address], [facility] 03/18/2025 08:29:17 5 68423: Manual therapy cancelled Joceline Aguirre, TELEVISION NEWSCAST DIRECTOR [address], [place], [address], [facility] 03/18/2025 08:29:17 5 95424 Therapeutic Exercise (1:1) completed Joceline Aguirre, TELEVISION NEWSCAST DIRECTOR [address], [place], [address], [facility] 03/13/2025 19:34:05 5 22800: Manual therapy completed Joceline Aguirre, TELEVISION NEWSCAST DIRECTOR [address], [place], [address], [facility] 03/13/2025 19:34:05 5 10050 Therapeutic Exercise (1:1) completed Joceline Aguirre, TELEVISION NEWSCAST DIRECTOR [address], [place], [address], [facility] 03/10/2025 08:43:37 5 09703: Manual therapy completed Joceline Aguirre, TELEVISION NEWSCAST DIRECTOR [address], [place], [address], [facility] 03/10/2025 08:43:37 5 56916 Therapeutic Exercise (1:1) completed Joceline Aguirre TELEVISION NEWSCAST DIRECTOR [address], [place], [address], [facility] 02/27/2025 20:11:11 5 63827: Manual therapy completed Joceline Aguirre, TELEVISION NEWSCAST DIRECTOR [address], [place], [address], [facility] 02/27/2025 20:11:11 5 44587 Therapeutic Exercise (1:1) completed Joceline Aguirre, TELEVISION NEWSCAST DIRECTOR [address], [place], [address], [facility] 02/26/2025 13:11:49 5 71085: Manual therapy completed Joceline Aguirre, TELEVISION NEWSCAST DIRECTOR [address], [place], [address], [facility] 02/26/2025 13:11:51 5 38660 Therapeutic Exercise (1:1) completed Yoselin Moser DPT [address], [place], [address], [facility] 02/14/2025 09:39:37 53670: Manual therapy completed Yoselin Moser DPT [address], [place], [address], [facility] 02/14/2025 09:39:37 5 97492 Therapeutic Exercise (1:1) completed Yoselin Moser DPT [address], [place], [address], [facility] 02/08/2025 10:03:23 5 15378: Manual therapy completed CLIFTON AlvarezT [address], [place], [address], [facility] 02/08/2025 10:03:23 5 00357 Therapeutic Exercise (1:1) completed Yoselin Moser DPT [address], [place], [address], [facility] 02/06/2025 08:45:25 5 92330: Manual therapy completed Yoselin Moser DPT [address], [place], [address], [facility] 02/06/2025 08:45:25 5 98806 Therapeutic Exercise (1:1) completed Yoselin Moser DPT [address], [place], [address], [facility] 02/01/2025 17:27:25 5 25519: Manual therapy completed Yoselin Moser DPT [address], [place], [address], [facility] 02/01/2025 17:27:25 5 26119 Therapeutic Exercise (1:1) completed CLIFTON AlvarezT [address], [place], [address], [facility] 01/28/2025 12:17:42 5 70973: Manual therapy completed CLIFTON AlvarezT [address], [place], [address], [facility] 01/28/2025 12:18:00 5 24361 Therapeutic Exercise (1:1) completed Yoselin Moser DPT [address] [facility], [place], [address], [facility] 01/23/2025 11:48:50 5 79220: Low complexity PT Eval completed Yoselin Moser DPDanny [address], [place], [address], [facility] 01/23/2025 11:48:52 5 G8417 BMI Above Upper Parameters, F/U Documented completed Yoselin Moser DPT [address], [place], [address], [facility] 01/22/2025 11:29:19 5 G8427 Current Medication Documented completed Yoselin Moser DPT [address], [place], [address], [facility] 01/22/2025 11:29:23 3 Vascular Surgery completed DIAN GLOVER [facility] 01/21/2025 13:51:27 3 Knee Surgery completed DIAN GLOVER [facility] 01/21/2025 13:48:30 2 Knee Surgery completed DIAN GLOVER [facility] 01/21/2025 13:48:30 4 Shoulder Surgery completed DIAN GLOVER [facility] 01/21/2025 13:48:30 8 Hand Surgery completed DIAN GLOVER [facility] 01/21/2025 13:48:30 7 Hand Surgery completed DIAN GLOVER [facility] 01/21/2025 13:48:30 Imaging Results None recorded. Procedure Notes None recorded. Medical Equipment None Reported. Allergies Allergen ID Allergen Name Allergen Category Reaction Reaction Severity Criticality Documentation Date Start Date Code Code System Note Provider Name and Address Organization Details Recorded Time 34748 Demerol medicatio n Not available Not available Not available 12/05/20232021 20801 1 RxNorm Not Available [facility] 4 11:53:38 15217 mold extract environme nt Not available Not available Not available 12/05/20232021 39849 8 RxNorm Not Available [facility] 4 11:53:38 20985 Biaxin medicatio n nausea other severe severe high 12/05/2023202172 9 RxNorm CHF DIAN BELEN herring [place] [facility] 5 13:49:16 02708 Non-stero idal anti-infl ammatory agent (substanc e) medicatio n Not available Not available Not available 12/05/20232021 57140 5008 SNOMED Not Available [facility] 4 11:53:39 74984 Product containin g penicilli n (product) medicatio n Not available Not available Not available 12/05/20232021 13906 8001 SNOMED Not Available [facility] 11:53:39 Medications Name Sig Start Date Stop Date Status Note LastModified by Organization Details LastModified Time doxycycline hyclate 50 mg capsule TAKE 1 CAPSULE BY MOUTH TWICE A DAY active Not Available Not Available No t Available gabapentin 400 mg capsule TAKE 1 CAPSULE BY MOUTH THREE TIMES A DAY 01/21 completed Not Available Not Available Not Available lorazepam 0.5 mg tablet TAKE 0.5-1 TABLET BY MOUTH EVERY DAY NEEDED 01/21 completed Not Available Not Available Not Available oxycodone 5 mg capsule TAKE ONE CAPSULE BY MOUTH EVERY SIX HOURS FOR THREE DAYS*DUE 08/09* 01/21 completed Not Available Not Available Not Available metoprolol succinate ER 25 mg tablet,exte nded release 24 hr TAKE 1 TABLET BY MOUTH EVERY DAY active Not Available Not Available No t Available methylpredn isolone 4 mg tablets in a dose pack FOLLOW PACKAGE DIRECTION S 01/21 completed Not Available Not Available Not Available oxycodone 5 mg tablet TAKE 2 TABLETS BY MOUTH EVERY 4 HOURS NEEDED FOR SEVERE PAIN 01/21 completed Not Available Not Available Not Available cyclobenzap rine 5 mg tablet TAKE 1 TABLET BY MOUTH 3 TIMES A DAY NEEDED FOR MUSCLE SPASM 01/21 completed Not Available Not Available Not Available bupropion HCl XL 150 mg 24 hr tablet, extended release TAKE 1 TABLET BY MOUTH EVERY DAY IN THE MORNING active Not Available Not Available No t Available oxycodone HCl-oxycodo ne-ASA 1 every 4 - 6 hours as needed 10/21 completed Statu s: 'Disc ontin ued'; Not Available Not Available Not Available OneTouch Verio test strips USE TO TEST BLOOD SUGAR ONCE A DAY 01/21 completed Not Available Not Available Not Available OneTouch Delica Plus Lancet 30 gauge USE TO TEST BLOOD SUGAR ONCE A DAY 01/21 completed Not Available Not Available Not Available Vitals None Recorded Social History Question Answer Notes LastModified by Organizat ion Details LastModified Time Tobacco Smoking Status Never Smoker DIAN herring [place] [facility] 01/21/2025 13:48:30 What Is Your Relationship Status? Information not available 01/21/2025 Sex: Unknown Functional Status Question Answer Note LastModified by Organizat ion Details LastModified Time How many times per week do you consume alcohol? Less than 1 time per week Information not available 01/21/2025 Do you use any illicit or recreational drugs? No Information not available 01/21/2025 Do you or have you ever used any other forms of tobacco or nicotine? No Information not available 01/21/2025 Do you or have you ever used e-cigarettes or vape? Never used electronic cigarettes Information not available 01/21/2025 Mental Status None recorded. Family History Nothing Reported. Medical History Condition Response Anxiety/Depression Y Stroke Y Allergies/Hayfever Y Diabetes Y Sleep Apnea Y Hypertension Y Gynecological HistoryNo gynecological history recorded. Obstetrics History GPAL:G 0 P 0 0 0 0 Past Encounters Encounter ID Performer Location Encounter Start Date Encounter Closed Date Diagnosis/Indication Diagnosis SNOMED-CT Code Diagnosis ICD10 Code Diagnosis IMO Codes Diagnosis Note [id number] MD Ishan Kaplan [address] [place] [address] 04/02/2024 09:10:49 04/19/2024 16:17:41 Pain of left hip joint 6864298653 59079 M25.119 [id number] Lexus Wills MD [facility] [address] [place], [place] [address] 01/21/2025 13:37:44 01/31/2025 14:26:49 History of artificial joint 107784699 Z96.611 [id number] Yoselin Benjaminnancy, DPT [facility] [address] [place] [address] 01/23/2025 07:11:06 01/23/2025 09:19:08 Finding of scapular structure [id number] G25.89 [id number] Yoselin Ehsan, DPT [facility] [address] [place] [address] 01/28/2025 08:00:02 01/28/2025 08:52:16 Finding of scapular structure 496924350 G25.89 [id number] Yoselin Benjaminnancy, DPT [facility] [address] [place] [address] 02/01/2025 14:41:19 02/01/2025 15:42:59 Finding of scapular structure 088895413 G25.89 [id number] Yoselin Ehsan, DPT [facility] [address] [place] [address] 02/06/2025 09:37:15 02/06/2025 11:19:06 Finding of scapular structure 130872911 G25.89 [id number] Yoselinmelina Moser, DPT [facility] [address] [place] [address] 02/08/2025 10:26:58 02/08/2025 13:13:16 Finding of scapular structure 124885697 G25.89 [id number] Yoselin Moser, DPT [facility] [address] [place] [address] 02/13/2025 11:18:14 02/13/2025 12:48:21 Finding of scapular structure 804174886 G25.89 [id number] Joceline Aguirre, TELEVISION NEWSCAST DIRECTOR [facility] [address] [place] [address] 02/26/2025 10:56:50 02/26/2025 12:02:38 Finding of scapular structure 624093402 G25.89 [id number] Joceline Aguirre TELEVISION NEWSCAST DIRECTOR [facility] [address] [place] [address] 02/28/2025 13:36:50 02/28/2025 14:35:41 Finding of scapular structure 255780276 G25.89 [id number] Joceline Aguirre TELEVISION NEWSCAST DIRECTOR [facility] [address] [place] [address] 03/11/2025 14:50:10 03/11/2025 15:29:11 Finding of scapular structure 839701099 G25.89 [id number] Joceline Aguirre TELEVISION NEWSCAST DIRECTOR [facility] [address] [place] [address] 03/14/2025 12:39:06 03/14/2025 12:50:32 Finding of scapular structure 108787117 G25.89 [id number] Joceline Aguirre TELEVISION NEWSCAST DIRECTOR [facility] [address] [place] [address] 03/22/2025 10:25:22 03/22/2025 11:51:59 Finding of scapular structure 407211158 G25.89 [id number] Joceline Aguirre TELEVISION NEWSCAST DIRECTOR [facility] [address] [place] [address] 04/12/2025 13:18:27 04/12/2025 14:09:18 Finding of scapular structure 536907021 G25.89 [id number] Joceline Aguirre, TELEVISION NEWSCAST DIRECTOR [facility] [address] [place] [address] 04/18/2025 12:34:56 04/18/2025 14:15:29 Finding of scapular structure [id number] G25.89 [id number] Joceline Aguirre, TELEVISION NEWSCAST DIRECTOR [facility] [address] [place] [address] 04/25/2025 08:43:41 04/25/2025 09:31:17 Finding of scapular structure 577447098 G25.89 [id number] Joceline Aguirre TELEVISION NEWSCAST DIRECTOR [facility] [address] [place] [address] 05/03/2025 14:06:43 05/03/2025 16:07:34 Finding of scapular structure 193248354 G25.89 [id number] Health Concerns Section Related Observation LastModified by Organization Detai ls LastModified Time None Recorded Concern Status LastModified by Organization Details LastModified Time None Recorded Advance Directives Directive None Recorded Payers Insurance Date Sequence Insurance Name Policy Number Policy Galvan Covered Member ID Galvan Member ID Guarantor Name 05/15/2025 1 MEDICARE [place]: [employer] Maryann Prajapati [id number] Maryann Prajapati 05/14/2025 2 CABRERA (CABRERA) Maryann Mcnairpatrick [id number] Maryann Prajapati Notes Date Note Type Note Provider Name and Address Organization Details Recorded Time 03/22/2025 text/html Patient reports no pain-feels tight. Joceline Aguirre, TELEVISION NEWSCAST DIRECTOR [address], [place], [address], [facility] 03/22/2025 12:09:28 04/12/2025 text/html Patient reports 5-6/10 today-admits to not doing anything over the past two weeks due to her dog being ill. Joceline Aguirre, TELEVISION NEWSCAST DIRECTOR [address], [place], [address], [facility] 04/12/2025 15:19:05 04/18/2025 text/html Patient reports 3-4/10 pain today. Joceline Aguirre, DAVID [address], [place], [address], [facility] 04/18/2025 14:06:04 04/25/2025 text/html Patient reports overdoing it with the stretching-01/10. Joceline Aguirre PTA [address], [place], [address], [facility] 04/25/2025 11:24:30 05/03/2025 text/html Patient cont to report shoulder is more tight than anything, really no pain. Joceline Aguirre PTA [address], [place], [address], [facility] 05/03/2025 15:17:52 OBGyn Episode No OBEpisode recorded.
--- OUTSIDE RECORDS SUMMARY | 2025-08-15 22:31 | XMS_ITS | Data Portability ---
Author Organization [place] - [facility], Allergy Address [address] [place] [phone] Care Team Providers Care Customer Pricing Manager Name Role Phone PÉREZ KAHN Referring Provider Assessment Encounter Date Assessment Date [...] clearance. Otherwise, she may follow-up as needed. [email or web address] Not available 08/24/2024 15:16:12 Plan of Treatment [...] audio gram No observ ation record ed. [email or web address] Not Available 08/04 09:59:23 08/27/20 24 audio gram No observ ation record ed. [email or web address] Not Available 08/04 10:00:33 Result Notes None recorded. Problems Name Problem SNOMED Code Status Onset Date Resolution Date Notes Provider Name and Address Organization Details Recorded Time [facility] 920084686 Active 2014 [facility]; Note: Date Diagnose d: 07/23/20 15 2:02 PM (R42) Not Available [facility] 4 02:27:54 Sensorin eural hearing loss 89526475 Active 2014 Sensorin eural hearing loss, unilater al, left ear, with unrestri cted hearing on the contrala teral side; Note: Date Diagnose d: 07/23/20 15 2:02 PM (H90.42) Not Available [facility] 4 02:27:52 Hyperacu sis of left ear [id number] 24096 Completed 201505/04/2024 Hyperacu sis, left ear; Note: Date Diagnose d: 6 9:15 AM (H93.232 ) Not Available [facility] 4 02:27:50 Follow-u p visit Active 2015 Encounte r for follow-u p examinat ion after complete d treatmen t for conditio ns other than malignan t neoplasm ; Note: Date Diagnose d: 08/12/20 16 1:47 PM (Z09) Not Available [facility] 4 02:27:47 Nasal congesti on 13821012 Active 2016 Nasal congesti on; Note: Date Diagnose d: 7 10:42 AM (R09.81) Not Available [facility] 4 02:28:05 Hypertro phy of nasal turbinat es 55575912 Active 2016 Hypertro phy of nasal turbinat es; Note: Date Diagnose d: 7 10:41 AM (J34.3) Not Available [facility] 4 02:28:07 Sudden idiopath ic hearing loss 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, right ear; Note: Date Diagnose d: 8 4:52 PM (H91.21) Not Available [facility] 4 02:28:01 Migraine 61728023 Active 2018 Other migraine , not intracta ble, without status migraino emir; Note: Date Diagnose d: 9 2:26 PM (G43.809 ) Not Available [facility] 4 02:27:44 Tinnitus of left ear [id number] 06 Active 2019 Tinnitus , left ear; Note: Date Diagnose d: 0 11:37 AM (H93.12) Tinnit us, left ear; Note: Date Diagnose d: 07/23/20 15 2:02 PM (H93.12) ; Start Date : 07/23/20 15 Not Available [facility] 4 02:27:50 Obstruct darrian sleep apnea syndrome 11350191 Active 2020 Obstruct darrian sleep apnea (adult) (pediatr ic); Note: Date Diagnose d: 1 11:24 AM (G47.33) Not Available [facility] 4 02:28:03 Sensorin eural hearing loss of bilatera l ears 415950501 Active 2020 Sensorin eural hearing loss, bilatera l; Note: Date Diagnose d: 1 11:14 AM (H90.3) Not Available [facility] 4 02:27:48 Allergic rhinitis 54539246 Active 2021 Allergic rhinitis : Due to other allergen ; Note: Date Diagnose d: 2 1:21 PM (477.8) Allerg ic rhinitis : Due to other allergen ; Note: Date Diagnose d: 2 10:40 AM (477.8) ; Start Date : 06/29/20 22 Aller gic rhinitis : Due to other allergen ; Note: Date Diagnose d: 2 3:01 PM (477.8) ; Start Date : 04/27/20 Aller gic rhinitis : Due to other allergen ; Note: Date Diagnose d: 2 1:43 PM (477.8) ; Start Date : 03/19/20 22 Aller gic rhinitis : Due to other allergen ; Note: Date Diagnose d: 2 2:29 PM (477.8) ; Start Date : 03/02/20 Aller gic rhinitis : Due to other allergen ; Note: Date Diagnose d: 01/06/2022 1:09 PM (477.8) ; Start Date : 01/07/20 Aller gic rhinitis : Due to other allergen ; Note: Date Diagnose d: 10:25 AM (477.8) ; Start Date : 11/20/19 Aller gic rhinitis : Due to other allergen ; Note: Date Diagnose d: 07/31/20 11:34 AM (477.8) ; Start Date : 07/31/20 Aller gic rhinitis : Due to other allergen ; Note: Date Diagnose d: 07/17/20 21 2:07 PM (477.8) ; Start Date : 07/17/20 Aller gic rhinitis : Due to other allergen ; Note: Date Diagnose d: 1:12 PM (477.8) ; Start Date : 05/20/20 Aller gic rhinitis : Due to other allergen ; Note: Date Diagnose d: 1:07 PM (477.8) ; Start Date : 04/29/20 Aller gic rhinitis : Due to other allergen ; Note: Date Diagnose d: 03/10/2021 10:02 AM (477.8) ; Start Date : 03/10/20 Aller gic rhinitis : Due to other allergen ; Note: Date Diagnose d: 1:13 PM (477.8) ; Start Date : [...] allergen ; Note: Date Diagnose d: 1 10:13 AM (477.8) ; Start Date : 11/13/19 Aller gic rhinitis : Due to other allergen ; Note: Date Diagnose d: 1 10:06 AM (477.8) ; Start Date : 10/30/19 Aller gic rhinitis : Due to other allergen ; Note: Date Diagnose d: 1 11:44 AM (477.8) ; Start Date : [...] ; Note: Date Diagnose d: Not Available [facility] 4 02:28:02 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, [phone] , [place] - [facility] 14:42:23 Problem Notes None recorded. Procedures Surgical History Date Name Laterality Status Provider Name and Address Organization Details Recorded Time 08/24/2024 Comp Audio with Tymps - 37528 & 66325 completed JACKIE CHURCHILL [address] [facility],[place] [address], [place], [phone], [place] - [facility] 08/24/2024 14:48:33 08/24/2024 FOL_DP completed OMAR ROBLERO PA-C [address] [facility],[place] [address], [place], [phone], [place] - [facility] 08/24/2024 14:41:15 Imaging Results None recorded. Procedure Notes None recorded. Medical Equipment None Reported. Allergies No known drug allergies Medications Name Sig Start Date Stop Date Status Note LastModified by Organization Details LastModified Time Refresh Tears 0.5 % eye drops 2015 active Medicati on ID: [id number] B rand Name: Refresh Tears Se nd Method: E-Prescr ibed Sub s Allowed: subs OK Medic ationGen ericName : Refresh Tears Not Available Not Available Not Available desonide 0.05 % topical cream 2015 active Medicati on ID: [id number] B rand Name: desonide Send Method: E-Prescr ibed Sub s Allowed: subs OK Medic ationGen ericName : desonide Not Available Not Available Not Available prednison e 10 mg tablet 01/11 completed Medicati on ID: [id number] P álvarorimoise d By Name: Jodi Henriquez nd Name: predniso [...] dose pack 06/13 completed Medicati on ID: [id number] P rescribe d By Name: Jodi Henriquez nd Name: Medrol (Darell) Se nd Method: E-Prescr ibed Sub s Allowed: subs OK Speci al Instruct ion: take as instruct ed Medic ationGen ericName : Medrol (Darell) Not Available Not Available Not Available sulfaceta mide sodium 10 % eye ointment 06/13 completed Medicati on ID: [id number] R mino: () Brand Name: sulfacet amide [...] a day 2021 active Medicati on ID: [id number] P rescribe d By Name: Jodi Henriquez nd Name: triamter narendra-hydr ochlorot hiazid S end Method: E-Prescr ibed Sub s Allowed: subs OK Medic ationGen ericName : triamter narendra-hydr ochlorot hiazid Not Available Not Available Not Available levothyro xine 25 mcg tablet 2015 active Medicati on ID: [id number] B rand Name: levothyr oxine Se nd Method: E-Prescr ibed Sub s Allowed: subs OK Medic ationGen ericName : levothyr oxine Not Available Not Available Not Available propranol ol 10 mg tablet 04/29 completed Medicati on ID: [id number] B rand Name: proprano lol Send Method: E-Prescr ibed Sub s Allowed: subs OK Medic ationGen ericName : proprano lol Not Available Not Available Not Available lorazepam 0.5 mg tablet TAKE 0.5-1 TABLET BY MOUTH EVERY DAY NEEDED active Not Available Not Available No t Available ropinirol e 2 mg tablet 2015 active Medicati on ID: [id number] B rand Name: ropiniro le Send Method: E-Prescr ibed Sub s Allowed: subs OK Medic ationGen ericName : ropiniro le Not Available Not Available Not Available simvastat in 20 mg tablet 2015 active Medicati on ID: [id number] B rand Name: simvasta tin Send Method: E-Prescr ibed Sub s Allowed: subs OK Medic ationGen ericName : simvasta tin Not Available Not Available Not Available oxycodone 5 mg capsule TAKE ONE CAPSULE BY MOUTH EVERY SIX HOURS FOR THREE DAYS*DUE 08/09* active Not Available Not Available No t Available gabapenti n 300 mg capsule 2021 active Medicati on ID: [id number] B rand Name: gabapent in Send Method: E-Prescr ibed Sub s Allowed: subs OK Medic ationGen ericName : gabapent in Not Available Not Available Not Available hydroxyzi ne HCl 25 mg tablet 2020 active Medicati on ID: [id number] B rand Name: hydroxyz ine HCl Send Method: E-Prescr ibed Sub s Allowed: subs OK Speci al Instruct ion: TAKE 1 TABLET (25 MG TOTAL) BY MOUTH EVERY 6 HOURS NEEDED FOR ITCHING Medicati onGeneri cName: hydroxyz ine HCl Not Available Not Available Not Available magnesium 250 mg tablet 2015 active Medicati on ID: [id number] B rand Name: magnesiu m Send Method: E-Prescr ibed Sub s Allowed: subs OK Medic ationGen ericName : magnesiu m Not Available Not Available Not Available irbesarta n 150 mg tablet 2015 active Medicati on ID: [id number] B rand Name: irbesart an Send Method: E-Prescr ibed Sub s Allowed: subs OK Medic ationGen ericName : irbesart an Not Available Not Available Not Available Wellbutri n 100 mg tablet 08/24 completed Medicati on ID: [id number] B rand Name: Wellbutr in Send Method: E-Prescr ibed Sub s Allowed: subs OK Medic ationGen ericName : Wellbutr in Not Available Not Available Not Available epinephri ne 0.3 mg/0.3 mL injection , auto-inje ctor 2021 active Medicati on ID: [id number] D uration Value: 1 Brand Name: epinephr ine Send Method: E-Prescr ibed Sub s Allowed: subs OK Speci al Instruct ion: INJECT 1 PEN INJECTOR INTRAMUS CULARLY. SINGLE DOSE NEEDED M maureen Michelle Name: odetter ine Not Available Not Available Not Available [place] 5 mg-325 mg tablet 1-2 tablet by mouth 08/24 completed Medicati on ID: [id number] D uration Value: 7 Prescri bed By Name: EVARISTO Segura nd Name: [place] Se nd Method: E-Prescr ibed Sub s Allowed: subs OK Medic ationGen ericName : [place] Not Available Not Available Not Available multivita min capsule 2015 active Medicati on ID: [id number] B rand Name: multivit gifford Sen d Method: E-Prescr ibed Sub s Allowed: subs OK Medic ationGen ericName : multivit [place] Not Available Not Available Not Available fluticaso ne propionat e 50 mcg/actua tion nasal spray,emir pension [place] 2 spray into both nostrils once a day 2021 active Medicati on ID: [id number] D uration Value: 90 Prescri bed By Name: Jodi Henriquez nd Name: fluticas one propiona te Send Method: E-Prescr ibed Sub s Allowed: subs OK Speci al Instruct ion: may use twice a day as needed M maureen Michelle Name: fluticas one propiona te Not Available Not Available Not Available naproxen 500 mg tablet 03/16 completed Medicati on ID: [id number] R mino: () Brand Name: naproxen Send Method: E-Prescr ibed Sub s Allowed: subs OK Medic ationGen ericName : naproxen Not Available Not Available Not Available oxycodone 5 mg tablet TAKE 1 TABLET ORALLY 2 TIMES A DAY NEEDED FOR PAIN 08/24 completed Not Available Not Available Not Available Lexapro 20 mg tablet 2015 active Medicati on ID: [id number] B rand Name: Lexapro Send Method: E-Prescr [...] extended release 2020 active Medicati on ID: [id number] B rand Name: bupropio n HCl Send Method: E-Prescr ibed Sub s Allowed: subs OK Speci al Instruct ion: TAKE 1 TABLET BY MOUTH EVERY DAY IN THE MORNING Medicati onGeneri cName: bupropio n HCl Not Available Not Available Not Available solifenac in 5 mg tablet 2020 active Medicati on ID: [id number] B rand Name: solifena pily Send Method: E-Prescr ibed Sub s Allowed: subs OK Speci al Instruct ion: TAKE 1 TABLET BY MOUTH EVERY DAY Medi cationGe nericNam e: solifena pily Not Available Not Available Not Available Calcium 600 + Minerals 600 mg-10 mcg (400 unit) tablet 2015 active Medicati on ID: [id number] B rand Name: Calcium 600 + Minerals Send Method: E-Prescr ibed Sub s Allowed: subs OK Medic ationGen ericName : Calcium 600 + Minerals Not Available Not Available Not Available Vitamin D3 125 mcg (5,000 unit) tablet 2017 active Medicati on ID: [id number] B rand Name: Vitamin D3 Send Method: [...] ICD10 Code Diagnosis IMO Codes Diagnosis Note [id number] OMAR ROBLERO PA-C [facility] [address] [phone] 08/24/2024 13:36:16 08/24/2024 15:15:03 Chronic hoarseness [id number] 105 R49.0 Sensorineu ral hearing loss of bilateral ears 051507693 H90.3 [id number] JACKIE CHURCHILL [facility] [address] [place] [address] 08/24/2024 14:47:39 08/27/2024 08:12:02 Sensorineural hearing loss of bilateral ears 746662629 H90.3 Audiologic al evaluation results: Right ear: Mild sloping to moderately severe with excellent word recognitio n. Left ear: Mild sloping to a moderate sensorineu ral hearing loss with excellent word recognitio n. Tympanomet ry: Right Ear:Type A Left Ear:Type A Health Concerns Section Related Observation LastModified by Organization Detai ls LastModified Time None Recorded Concern Status LastModified by Organization Details LastModified Time None Recorded Advance Directives Directive None Recorded Payers Insurance Date Sequence Insurance Name Policy Number Policy Galvan Covered Member ID Galvan Member ID Guarantor Name 08/27/2024 1 MEDICARE B-[place]: [employer] Maryann Prajapati [id number] 1 Maryann Prajapati 08/27/2024 2 () Maryann Prajapati [id number] Maryann Prajapati Notes Date Note Type Note Provider Name and Address Organization Details Recorded Time 08/24/2024 text/html ROS as noted in the HPI 74-year-old female presents for reevaluation of her vocal cords. [...] significant head injury. She was evaluated at [facility]. A CT scan showed no brain bleed but did show incidental carotid stenosis and a hypodense thyroid nodule measuring 1 cm. She has a biopsy scheduled next Tuesday at [facility]. Her primary care would like her vocal cords evaluated in preparation for any surgery she may require. She is also having trouble hearing out of her right ear since her fall. She believes she struck that side during her fall. History of [place] on the left side. NILSON GABRIEL MD [address] [place] [address], [place], [address], [facility] - [facility] 08/24/2024 17:39:05 OBGyn Episode No OBEpisode recorded.
--- NOTE | 2025-08-15 22:32 | PC.NURSE ---
Pt awake and alert, speech clear. Pt remains with right hand numbness, states lack of ROM to right shoulder baseline since December due to shoulder surgery. Pt states improvement to right eye blurriness. BP remains stable at 154/64.
[2025-08-16] VITALS (36 sets, daily range): BP systolic 102–178; BP diastolic 46–87; PULSE 71–96; RESP 11–23; TEMP 36.2–37.7; O2SAT 91–99; BMI 39.0
[2025-08-16] MEDS: 0.9 % Sodium Chloride Flush 3 ML SYRINGE IVFLUSH ×4 (01:48→23:53)
[2025-08-16 05:10] LABS: MANUAL DIFF FLAG NO
[2025-08-16 05:12] LABS: Hematocrit 43.1 % (37.0-47.0); Hemoglobin 14.2 g/dl (12.0-16.0); Imm Gran Abs Auto 0.02 X10*3/uL (0.00-0.03); Imm Gran Pct Auto 0.2 % (0.0-0.4); Lymphocytes Absolute Auto 3.3 X10*3/uL (1.2-4.9); Mean Corpuscular HGB Conc 32.9 g/dl (31.0-35.0); Mean Corpuscular Hemoglobin 29.2 pg (27.0-33.0); Mean Corpuscular Volume 88.7 fL (80.0-98.0); NRBC Abs Auto 0.000 X10*3/uL (0.0-0.012); NRBC Pct Auto 0.0 /100WBC (0.0-0.2); Platelet Count 224 X10*3/uL (160-400); Red Blood Count 4.86 X10*6/uL (4.20-5.50); White Blood Count 9.3 X10*3/uL (4.8-10.8)
[2025-08-16 05:26] LABS: Anion Gap 13 (12-20); Blood Urea Nitrogen 22 mg/dL (9-16); Calcium 9.0 mg/dL (8.4-10.2); Carbon Dioxide 27 mmol/L (22-29); Chloride 105 mmol/L (96-108); Cholesterol 180 mg/dL (<200); Creatinine Clr Calc Pharmacy 69.4; Estimated Glomerular Filt Rate > 60; HDL Cholesterol 42 mg/dL (>40); Potassium 3.5 mmol/L (3.3-5.1); Sodium 141 mmol/L (135-145); Triglycerides 148 mg/dL (<150)
--- NOTE | 2025-08-16 06:13 | HO.SKINPHOTO ---
Location: Left Antecubital
--- NOTE | 2025-08-16 06:14 | PC.NURSE ---
Pt arrived to unit approx 2310. Pt alert and oriented x4 with moderate right upper extremity?weakness. Pt c/o of intense dizziness with turning side to side and mild right sided?headache at times. Neuro assessments completed per protocol. SR on tele, HR 70-80s, BPs initially within post-TNK parameters, at approx 0230, systolic?BPs reading 110-130s, diastolic?BP 40-70s. VICK Ortiz notified of persistent low systolic/diastolic BPs outside post-TNK parameters - no new orders. Pt passed bedside swallow eval - completed at 0030 per VICK Ortiz, Tylenol?PO administered for headache x2 with good effect - see MAR. Small hematoma noted to left AC from previous IV stick, heat pack applied. Photo placed in chart.?
--- NOTE | 2025-08-16 07:00 | CA_ITS ---
Transthoracic Echocardiogram Patient (Last, First, Middle): Maryann Prajapati M Gender: F Date of : 1950 Age: 75 Procedure Date: 08/16/2025 Procedure Type: Transthoracic Echocardiogram Location: ICU Height: 157.48 cm Weight: 96.62 kg BSA: 1.96 m2 Heart Rate: bpm BP: 129 / 63 mmHg Oncology Nurse: TO Referring MD: Senthil HICKMAN Eclectic Doctor: Mike Hendrickson MD Symptoms: stroke Study Quality: Technically Difficult/Contrast ECG Rhythm: Sinus Conclusions: - 1. Normal LV ejection fraction 55-60% with impaired relaxation filling pattern 2. Severe mitral annular calcification with normal cardiac valvular Dopplers 3. No gross pericardial effusion Findings Procedure Information Contrast agent, definity, is being given per protocol without apparent complications. The study quality is limited by patients body habitus. Left Ventricle Normal left ventricular size, thickness, and systolic function. The visually estimated ejection fraction is between 55-60%. Spectral Doppler is indicative of an impaired relaxation filling pattern. Right Ventricle The right ventricle was not well visualized. Normal right ventricular cavity size. Atria The left atrium is normal in size. Interatrial shunt cannot be excluded. The right atrium was not well visualized. Aortic Valve The aortic valve structure and function is likely normal. There is mild calcification of the aortic valve. There is no aortic valve stenosis. There is no aortic valve regurgitation. Mitral Valve There is moderate anterior and severe posterior mitral leaflet thickening. There is severe mitral annular calcification. There is no mitral valve regurgitation. There is no mitral valve stenosis. Pulmonic Valve The pulmonic valve was not well visualized. Tricuspid Valve The tricuspid valve was not well visualized. Tricuspid regurgitation envelope is inadequate for calculation of right ventricular systolic pressure. Normal right atrial pressure. Great Vessels The aorta was not well visualized. The pulmonary artery was not well visualized. Venous The inferior vena cava is normal in size and collapses greater than 50% with inspiration. Pericardium/Pleural There is no evidence of pericardial effusion. Prior Study Comparison No prior study available for comparison. Measurements 2D Linear Measurements IVSd: 1.00 0.6-0.9/0.6-1.0 cm LVIDd: 4.47 3.9-5.3/4.2-5.9 cm LVIDd Index: 2.28 2.4-3.2/2.2-3.1 cm/m2 LVIDs: 3.02 2.0-3.6 cm LVPWd: 0.92 0.7-1.1 cm LA Diam: 3.50 2.7-3.8/3.0-4.0 cm LAIDs Index: 1.79 1.5-2.3 cm/m2 LV Mass: 177.83 67-162/88-224 g LV Mass Index: 90.73 43-95/49-115 g/m2 LVOT Diam: 2.10 3.0+(-)1.3 cm 2D Systolic Function EF 4C: 54.60 >55% EF 2C: 64.10 >55% EF BiP: 57.60 >55% Mitral Valve MV VTI: 0.41 MV Pk Jorge Alberto: 1.58 MV Mn Jorge Alberto: 0.95 MV Pk Grad: 10.00 MV Mn Grad: 4.00 MV Pk E: 1.05 MV PK A: 1.45 MV Decel Time: 247.00 E/A: 0.70 E'Lateral: 4.79 E'Medial: 4.13 E/E' Med: 25.40 E/E' Lat: 21.90 PHT: 72.00 MVA PHT: 3.06 MVA Continuity: 1.85 Decel [place]: 4.25 Aortic Valve AoV Pk Jorge Alberto: 1.14 AoV Mn Jorge Alberto: 0.78 AoV VTI: 0.26 AoV Pk Grad: 5.00 Aov Mn Grad: 3.00 MARLENI Cont.VTI: 2.91 LVOT LVOT Pk Jorge Alberto: 0.92 LVOT Mn Jorge Alberto: 0.70 LVOT VTI: 0.22 LVOT Pk Grad: 3.00 LVOT Mn Grad: 2.00 LVOT Diam: 2.10 LVOT Area: 3.46 Diastolic Function MV Pk E: 1.05 MV Pk A: 1.45 E/A: 0.70 E'Medial: 4.13 E/E' Med: 25.40 E' Laterial: 4.79 E/E' Lat: 21.90 Tricuspid Valve RA Press: 3.00 Great Vessels Aorta Sinus of Valsalva: 3.48 2.0-3.5 cm Ao Asc: 3.30 2.1-3.4 cm Updated in Other Vendor System with Status of Final Mike Hendrickson MD electronically signed on 08/16/2025 1:32:08 PM with status of Final
[2025-08-16 07:42] LABS: Glucose, Whole Blood 105 mg/dL (60-115)
[2025-08-16] MEDS: Flu Vacc TS2025-26(6mo up)/PF 0.5 ML SYRINGE IM (08:08)
--- NOTE | 2025-08-16 08:54 | P.PNCC_ITS ---
Subjective Subjective Date of Service: 08/16/25 Interval History: Presented with stroke-like symptoms with right-sided weakness and right eye vision loss, received TNK at 10:20PM Critical Care Time (minutes): 35 Physical Exam 2 Vital Signs: Vital Signs: Last Vital Signs Temp 97.2 F 08/16/25 08:00 Pulse 88 08/16/25 08:00 Resp 15 08/16/25 08:00 BP 159/73 H 08/16/25 08:00 Pulse Ox 98 08/16/25 08:00 O2 Del Method Room Air 08/16/25 08:00 BMI result Body Mass Index 39.0 General: not in any acute distress, ill appearing Nutritional Appearance: well nourished and overweight Eyes: appearance normal, both eyes and all related structures; Alignment and Position: alignment normal and position normal Neck: No lymphadenopathy, no thyromegaly Resp: bilateral air entry equal, no added sounds present Cardio: Regular rate, regular rhythm; Heart sounds: S1 normal heart sound present and S2 normal heart sound present GI: soft, nontender, no guarding, no hepatosplenomegaly : bladder normal to inspection, bladder normal to palpation, no renal angle tenderness Skin: no rashes or lesions noted and elasticity normal Neuro: alert, oriented x 3, moves all extremities Objective Data Labs 08/16/25 04:56 08/16/25 04:56 Labs: Laboratory Results - last 24 hr 08/15/25 08/15/25 08/15/25 21:15 21:16 21:34 WBC 9.7 RBC 4.95 Hgb 14.7 Hct 43.7 MCV 88.3 MCH 29.7 MCHC 33.6 RDW 12.8 Plt Count 260 MPV 9.4 Immature Gran % (Auto) 0.2 Neut % (Auto) 60.7 Lymph % (Auto) 31.2 [place] % (Auto) 5.2 Eos % (Auto) 2.0 Baso % (Auto) 0.7 Lymph # (Auto) 3.0 [place] # (Auto) 0.5 Eos # (Auto) 0.2 Baso # (Auto) 0.1 Abs Immat Gran (auto) 0.02 Absolute Neuts (auto) 5.9 Absolute Nucleated RBC 0.000 Nucleated RBC % (auto) 0.0 PT 13.2 Whole Blood PT 12.7 INR 1.1 Whole Blood INR 1.1 APTT 29.6 Sodium 141 Potassium 4.2 Chloride 106 Carbon Dioxide 23 Anion Gap 16 BUN 24 H Creatinine 0.97 Estim Creat Clear Calc 53.8 Estimated GFR 56 POC Glucose 197 H Random Glucose 201 H Calcium 9.5 Troponin I High Sens 4.0 Triglycerides 224 H Cholesterol 204 H LDL Cholesterol, Calc 115 H HDL Cholesterol 45 Hold Yellow Top See Note 08/16/25 08/16/25 04:56 07:38 WBC 9.3 RBC 4.86 Hgb 14.2 Hct 43.1 MCV 88.7 MCH 29.2 MCHC 32.9 RDW 12.9 Plt Count 224 MPV 9.2 L Immature Gran % (Auto) 0.2 Neut % (Auto) 55.3 Lymph % (Auto) 35.2 [place] % (Auto) 7.0 Eos % (Auto) 1.8 Baso % (Auto) 0.5 Lymph # (Auto) 3.3 [place] # (Auto) 0.7 Eos # (Auto) 0.2 Baso # (Auto) 0.1 Abs Immat Gran (auto) 0.02 Absolute Neuts (auto) 5.1 Absolute Nucleated RBC 0.000 Nucleated RBC % (auto) 0.0 PT Whole Blood PT INR Whole Blood INR APTT Sodium 141 Potassium 3.5 Chloride 105 Carbon Dioxide 27 Anion Gap 13 BUN 22 H Creatinine 0.76 Estim Creat Clear Calc 69.4 Estimated GFR > 60 POC Glucose 105 Random Glucose 98 Calcium 9.0 Troponin I High Sens Triglycerides 148 Cholesterol 180 LDL Cholesterol, Calc 109 H HDL Cholesterol 42 Hold Yellow Top Progress Note: A&P Assessment and plan (1) Acute CVA (cerebrovascular accident): Status: Acute (2) Acute stroke due to ischemia: Status: Acute (3) HTN (hypertension): Status: Acute Plan Acute ischemic stroke: Patient presented with right-sided weakness and right-sided visio loss on 08/16/2025 at 8PM, received TNK at 10:20PM right sided vision loss has improved, weakness in right leg improved, still has some weakness in right upper extremity CTA head and neck showed patent arteries, CT head without any acute intracranial pathology Continue statin, to start an aspirin tonight Close neurologic monitoring every hour in the ICU on 2 tonight will get TTE We will repeat a CT/low intensity MRI tonight at 24 hours We will consult OT and PT Hypertension: Given acute ischemic stroke allow permissive hypertension We will withhold antihypertensives for now On metoprolol 25 daily at home Diabetes mellitus: On sliding scale insulin On Mounjaro and metformin at home Prophylaxis: SCD, pantoprazole Quality Stroke Does the patient have a stroke diagnosis?: Yes Reason for No Anti-thrombotic by Day Two: N/A - Med Ordered VTE Prior VTE?: No VTE Risk Level:: Medical - low VTE Device Contraindication: N/A - Device Ordered VTE Drug Contraindication: N/A - Med Ordered
--- NOTE | 2025-08-16 10:58 | MHC.CM.PN ---
Met briefly with pt to review d/c planning needs: Pt resides w/spouse who is able to assist her and transport her to home. IMM in chart, HCP on file and verified: CM to follow
--- NOTE | 2025-08-16 11:31 | P.CNNE_ITS ---
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 She was watching television when right side of the screen image changed and was somewhat twisted. She did not cover each eye individually but stated that she was sure it was her right eye that was affected. There was no obvious speech or language difficulty. on her way to emergency room, she also noted some problem with the right hand and in emergency room she was noted to have mild right hand and arm clumsiness. With clinical symptoms of possible right hemianopsia and right-sided weakness and tentative diagnosis of ischemic cerebral infarction, she was treated with TNK. She said that her visual symptoms improved after that in especially when she came to ICU. There, she also noted a headache that was treated with Tylenol. There was no associated cardiac symptom. There was no recent fall, head injury, or cold or flu-like illness. There was no significant neck pain. Review of Systems 2 Eyes: Eyes: Reports as per HPI [facility] Past Medical History Medical History Diabetes type 2, controlled Hyperlipidemia TIA (transient ischemic attack) Hx of respiratory syncytial virus infection Family History Family History Father Hypertension Heart disease Mother Hypertension Osteoporosis Diabetes Mental health disorder Surgical History Surgical History History of right salpingo-oophorectomy History of total replacement of right shoulder joint History of total right knee replacement Hx of laparoscopic gastric banding H/O lumpectomy Social History Social History Household Members: Spouse Household Members Other:: retired nurse, , 2 daughters, 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 If so, by whom?: No Do you feel safe in your current relationship?: Yes Is there a partner from a previous relationship who is making you feel unsafe now?: No Are you made to feel afraid or neglected: No Advance Directives: Yes Advance Directives on File: Yes Advance Directives Date on File: 12/16/22 Do you have a plan to hurt others: No Plan Recently lost weight without trying: No Nutrition Risks: On aspiration precautions Patient : No Poor oral hygiene: No service: No Current occupational status: retired Cognitive needs: No Hearing needs: No Vision needs: Yes Meds Allergies Allergy/AdvReac Type Severity Reaction Status Date / Time rofecoxib (From Vioxx) Allergy Intermediate went into Verified 08/15/25 21:49 CHF Penicillins Allergy Mild mold Verified 08/15/25 21:49 allergy NSAIDS (Non-Steroidal Allergy raises Verified 08/15/25 21:49 Anti-Inflamma cratinine level clarithromycin (From Biaxin) AdvReac Mild UPSET Verified 08/15/25 21:49 STOMACH meperidine (From Demerol) AdvReac Mild cofusion Verified 08/15/25 21:49 ineffective pain med Active Medications: Current Medications Acetaminophen (Acetaminophen 325 Mg Tablet) 650 mg PO Q6H PRN PRN Reason: Pain, Mild 1-3,fever,headache Last Admin: 08/16/25 05:38 Dose: 650 mg Atorvastatin Calcium (Atorvastatin Calcium 80 Mg Tablet) 80 mg PO BEDTIME [facility] Last Admin: 08/16/25 00:50 Dose: 80 mg Dextrose (Dextrose 50 % 25 Gm/50 Ml Syringe) 25 gm IVPUSH Q15M PRN; Protocol PRN Reason: per Hypoglycemia Standing Ord. Glucose (Glucose Gel 15 Gm Gel..Gram.) 15 gm PO Q15M PRN; Protocol PRN Reason: per Hypoglycemia Standing Ord. Sodium Chloride (0.9 % Sodium Chloride Flush 3 Ml Syringe) 3 ml IVFLUSH QSHIFT [facility] Last Admin: 08/16/25 08:10 Dose: 3 ml Home Medications ?Medication ?Instructions ?Recorded ?Confirmed ?Last Taken ?Type bupropion HCl 300 mg 24 hr tablet, 300 mg PO QAM 07/2111/28/24 Unknown History extended release escitalopram oxalate 20 mg tablet 20 mg PO DAILY 07/2111/28/24 Unknown History ropinirole 4 mg tablet 4 mg PO BID 07/21/22 5 Unknown History Physical Exam 2 Vital Signs: Vital Signs: Last Vital Signs Temp 97.2 F 08/16/25 08:00 Pulse 85 08/16/25 11:00 Resp 22 H 08/16/25 11:00 BP 123/51 L 08/16/25 11:00 Pulse Ox 98 08/16/25 11:00 O2 Del Method Room Air 08/16/25 11:00 BMI result Body Mass Index 39.0 Neuro: Other: Mental Status: Alert and oriented to person, place, and time. Normal attention. Normal spontaneous speech, fluency, and comprehension. No obvious issues with mood and memory. Affect is appropriate. Cranial Nerves: CN II: Visual whittaker full to confrontation, visual acuity intact. CN III, IV, : Pupils equal, round, reactive to light and accommodation. Extraocular movements are normal. CN V: Facial sensation is normal. CN VII: mild right-sided facial flatness. CN VIII: Hearing intact to bedside conversation is normal. CN IX, X: Palate elevates symmetrically. CN XI: Shoulder shrug and head turn symmetrical. CN XII: Tongue midline without atrophy or fasciculations. Motor: Mild right upper extremity drift. Deep tendon reflexes are trace to absent with flexor plantars. Extrapyramidal: Full facial expressions and blinking. No rigidity. Movements are appropriate with no tremor or abnormality. Speech: Normal; no dysarthria or tremor. Results Labs 08/16/25 04:56 08/16/25 04:56 Labs: Short CBC 08/15/25 08/16/25 Range/Units 21:34 04:56 WBC 9.7 9.3 (4.8-10.8) X10*3/uL Hgb 14.7 14.2 (12.0-16.0) g/dl Hct 43.7 43.1 (37.0-47.0) % Plt Count 260 224 (160-400) X10*3/uL BMP 08/15/25 08/16/25 21:34 04:56 Sodium 141 141 Potassium 4.2 3.5 Chloride 106 105 Carbon Dioxide 23 27 BUN 24 H 22 H Creatinine 0.97 0.76 Calcium 9.[address] [address] [address] Scan Report Signed Patient: Maryann Prajapati MR#: [id number] : 1950 Acct:[id number] Age/Sex: 75 / F ADM Date: 08/15/25 Loc: HO.ED Attending Dr: Ordering Physician: Gogo Wade MD Date of Service: 08/15/25 Procedure(s): CT angio head neck STROKE Accession Number(s): [id number] cc: Ami Aponte MD; Gogo Wade MD~ Report Number: [id number]: Total DLP = 0.00 mGy-cm Reason for Exam: Stroke Protocol CLINICAL HISTORY: Stroke Protocol CT angiography head and neck with contrast. 3D Postprocessing. Comparison: None provided Findings: Aortic arch and cervical great vessels are patent with no aneurysm, dissection, hemodynamically significant stenoses, or occlusion. Intracranial arteries are patent. No aneurysm, dissection, hemodynamically significant stenoses, or occlusion. No abnormal intracranial enhancement. The visualized thyroid gland is unremarkable. No cervical mass or fluid collection. Lung apices clear. No acute fracture. IMPRESSION: Patent head and neck CTA. Assessment and Plan (1) Acute stroke due to ischemia: Status: Acute 75 years old woman with underlying history of bilateral carotid endarterectomies with no significant heart disease including a normal cardiac Holter couple of years ago, history of headaches probably of migraine type, came to hospital with sudden onset of visual dysfunction and right-sided weakness. With clinical diagnosis of cerebral infarction she was treated with TNK. There were no complications. Her examination now revealed mild right- sided facial flatness, which I am not sure if that was new or old. I recommend obtaining a noncontrast MRI of brain if possible. I had noticed that she might have a cochlear implant, which might impede our ability to obtain MRI. Otherwise continue statin, start anti-platelet agent after 24 hours of TNK, and managed blood pressure. Procedures Date of Service Date of Service: 08/16/25
[2025-08-16 11:35] LABS: Glucose, Whole Blood 128 mg/dL (60-115)
--- NOTE | 2025-08-16 12:35 | PHA.MEDREC ---
Pharmacy Consult ? Medication Reconciliation Pharmacy has completed the medication reconciliation. Spoke to patient to confirm medication list. Per patient, she no longer takes metformin, she takes Mounjaro 5 mg once a week on tuesday and she takes triamterene/hctz at bedtime. She fills her medications at a mail order pharmacy (a supplement insurance of the [place]). Last dose of medications was on Tuesday.
[2025-08-16] MEDS: buPROPion HCl XL 300 MG TAB.ER.24H PO (14:10)
--- NOTE | 2025-08-16 14:28 | MHC.SL.SWA ---
Speech Pathologist Impression: WFL Risk of Aspiration Due to: Admit for acute stroke Dysphasia Diet Status: No change, continue w/ REGULAR/THIN textures as ordered per MD Liquid Consistency and Strategies for Safe Swallow: Liquid Intake Recommendation: Thin Solid Food Consistency: Dietary Recommendations: Regular Oral Medication Intake: Whole with Liquid Please contact the pharmacy regarding appropriate crushable or liquid drug formulations that are available whenever modified delivery is recommended. Supervision While Eating and Drinking for Safe Swallow: None Needed Recommendation for Speech: NA:Typical Evaluation Comment: On assessment, speech, language and swallow appear to be WFL. Patient denies any difficulty swallowing or changes to her communication. Recommend continue on REGULAR texture diet and THIN liquids, pills WHOLE w/ LIQUID. Patient is able to feed herself without difficulty. Please re-refer with any changes or further concern. Director Of Corporate Communications Clinican/Clinical Fellow: No Supervisory Statement: I have reviewed and agree with the student/clinical fellow's documentation: N/A Speech Language Pathologist: Charlene Mosley M.A., CCC-PAPER PRODUCTION ENGINEER
[2025-08-16 16:01] LABS: Glucose, Whole Blood 116 mg/dL (60-115)
--- NOTE | 2025-08-16 17:40 | PC.NURSE ---
?Assume care @ 0700 Pt Alert & oriented x4, Complaining of? headache 12/10, tylenol given per DEC.? Neuro exam Q1 revealed mild weakness to right arm. On RA Clear lung sounds.Sinus rhythm on tele. LBM 08/15. Urinating on the bedside commode. Stand by assist.?
[2025-08-16 21:05] LABS: Glucose, Whole Blood 109 mg/dL (60-115)
[2025-08-16] MEDS: iohexoL 350 MG/ML 100 ML INFUS..BTL 85 ML IV (22:26)
[2025-08-17] VITALS: BP 127/69; PULSE 74; RESP 17; TEMP 36.8; O2SAT 94
[2025-08-17 01:00] VITALS: BP 136/68; PULSE 75; RESP 16; O2SAT 95
[2025-08-17 04:00] VITALS: BP 132/63; PULSE 80; RESP 17; O2SAT 95
--- NOTE | 2025-08-17 07:23 | P.PNIM_ITS ---
Subjective Subjective Date of Service: 08/17/25 Interval History: f/u on Acute stroke s/p TNK Physical Exam 2 Vital Signs: Vital Signs: Last Vital Signs Temp 98.2 F 08/17/25 00:00 Pulse 80 08/17/25 04:00 Resp 17 08/17/25 04:00 BP 132/63 08/17/25 04:00 Pulse Ox 95 08/17/25 04:00 O2 Del Method CPAP 08/17/25 04:00 FiO2 21 08/17/25 04:00 BMI result Body Mass Index 39.0 Const: Other: General: AO X 3, no acute distress Resp: CTA bilateral CVS: S1,S2,RRR GI: +BS, NT, no distention Skin: No rash Neuro: mild righ facial flatness Psych: appropriate affect Objective Data Active Medications Acetaminophen (Acetaminophen 325 Mg Tablet) 650 mg PO Q6H PRN PRN Reason: Pain, Mild 1-3,fever,headache Last Admin: 08/16/25 13:13 Dose: 650 mg Documented By: ALFREDO Aspirin (Aspirin 81 Mg Tab.Chew) 81 mg PO DAILY [facility] Last Admin: 08/16/25 23:45 Dose: 81 mg Documented By: JOSE ANGEL Atorvastatin Calcium (Atorvastatin Calcium 80 Mg Tablet) 80 mg PO BEDTIME [facility] Last Admin: 08/16/25 22:41 Dose: 80 mg Documented By: JOSE ANGEL Bupropion HCl (Bupropion Hcl Xl 300 Mg Tab.Er.24h) 300 mg PO DAILY [facility] Last Admin: 08/16/25 14:10 Dose: 300 mg Documented By: ALFREDO Bupropion HCl (Bupropion Hcl Xl 300 Mg Tab.Er.24h) 300 mg PO DAILY [facility] Dextrose (Dextrose 50 % 25 Gm/50 Ml Syringe) 25 gm IVPUSH Q15M PRN; Protocol PRN Reason: per Hypoglycemia Standing Ord. Escitalopram Oxalate (Escitalopram Oxalate 20 Mg Tablet) 20 mg PO DAILY [facility] Last Admin: 08/16/25 13:09 Dose: 20 mg Documented By: ALFREDO Escitalopram Oxalate (Escitalopram Oxalate 20 Mg Tablet) 20 mg PO DAILY [facility] Glucose (Glucose Gel 15 Gm Gel..Gram.) 15 gm PO Q15M PRN; Protocol PRN Reason: per Hypoglycemia Standing Ord. Ropinirole HCl (Ropinirole Hcl 2 Mg Tablet) 4 mg PO BID [facility] Last Admin: 08/16/25 22:41 Dose: 4 mg Documented By: JOSE ANGEL Sodium Chloride (0.9 % Sodium Chloride Flush 3 Ml Syringe) 3 ml IVFLUSH QSHIFT [facility] Last Admin: 08/16/25 23:53 Dose: 3 ml Documented By: JOSE ANGEL Labs 08/16/25 04:56 08/16/25 04:56 Labs: Laboratory Results - last 24 hr 08/16/25 08/16/25 08/16/25 07:38 11:32 15:58 POC Glucose 105 128 H 116 H 08/16/25 21:02 POC Glucose 109 Assessment and Plan (1) Acute CVA (cerebrovascular accident): Status: Acute (2) Diabetes type 2, controlled: Status: Acute (3) Hypothyroid: Status: Acute (4) HTN (hypertension): Status: Acute Plan 75/F with HTN, HLD, DM, h/o timo CEA presented with right sided weakness and blury vision, CT head was negative and received TNK on 08/15 Acute ischemic stroke: Patient presented with right-sided weakness and right-sided visio loss on 08/15/2025 at 8PM, received TNK at 10:20PM right sided vision loss has improved, weakness in right leg improved, still has some weakness in right upper extremity CTA head and neck showed patent arteries, CT head without any acute intracranial pathology Continue statin, Aspirin Close neurologic monitoring every hour in the ICU on 2 tonight Echo showed no intracardiac clot Repeat head CT 08/16, 24 hrs later, no acute finding PT recommends outpatient serice Positional Vertigo, Meclizine PRN Outpatient PT/Ot Hypertension, BP normal now resume meds later today or tomorrow Diabetes mellitus: On sliding scale insulin On Mounjaro and metformin, can be restarted upon discharge DVT prophylaixis: mechanical in light of TKN use Dispo: possibly home later today Quality Stroke Does the patient have a stroke diagnosis?: Yes Reason for No Anti-thrombotic by Day Two: N/A - Med Ordered VTE Prior VTE?: No VTE Risk Level:: Medical - low VTE Device Contraindication: N/A - Device Ordered VTE Drug Contraindication: N/A - Med Ordered
[2025-08-17 07:42] LABS: Glucose, Whole Blood 103 mg/dL (60-115)
[2025-08-17 08:00] VITALS: BP 139/72; PULSE 79; RESP 16; TEMP 36.8; O2SAT 93
[2025-08-17 08:01] VITALS: PULSE 86; RESP 16; O2SAT 95
--- NOTE | 2025-08-17 08:20 | P.DS_ITS ---
DS: Providers Provider Date of Service: 08/17/25 Date of admission: 08/15/25 22:20 Date of discharge: 08/17/25 Primary care physician: Ami Aponte MD DS: Diagnosis Discharge Diagnosis (1) Acute CVA (cerebrovascular accident): Status: Acute (2) Diabetes type 2, controlled: Status: Acute (3) Hypothyroid: Status: Acute (4) HTN (hypertension): Status: Acute DS: Summary Hospital Course Hospital Course: admission HPI Chief Complaint: Acute ischemic stroke post TNK 75-year-old female with underlying history of TIA x 2, Bilateral , hypertension, hyperlipidemia, diabetes had presented to the emergency room with complaints of feeling unwell and having sudden onset right- hemianopsia on the lateral aspect of the right eye followed by R hand heaviness, weakeness and numbness.?Her last well known time was a p.m. connie, arrived to the emergency room at 09:15 and underwent a full stroke workup. In the ED, the patient was noted to be somewhat hypertensive, her laboratory workup is unremarkable with the exception of BUN to creatinine ratio of 26, glucose 197, triglycerides 224, total cholesterol 204, LDL 115.? Initial head CT showed no acute intracranial hemorrhage or pathology, follow-up head and neck CT angiogram are both negative.? NIH of 3.? The patient received labetalol IV push followed by TNK at 11/22/2004.? The patient will be admitted to the ICU for suspected ischemic stroke post TNK administration. Hospital course: 75-year-old female with a history of hypertension, hyperlipidemia, diabetes mellitus, and bilateral carotid endarterectomy presented with right-sided weakness and blurry vision. Initial head CT was negative, and she received tenecteplase (TNK) on 08/15 before being admitted to the ICU. She had some residual mild right-sided weakness and visual impairment, but has continued to improve. Repeat head CT at 24 hours showed no acute findings. Echocardiogram revealed no intracardiac clot. She is currently on high-dose atorvastatin (80 mg daily) and low-dose aspirin. She has experienced headaches since presentation, which have not worsened, and is advised to use acetaminophen (Tylenol) as needed. She also reports vertigo, particularly when turning in bed. PT/OT evaluated her and recommended outpatient follow-up if vertigo persists. She is stable, wishes to go home, and will be discharged with the following medications: * Atorvastatin (Lipitor) increased from 40 mg at home to 80 mg daily * Aspirin 81 mg daily * Acetaminophen (Tylenol) as needed for headache * Meclizine as needed for vertigo * Metoprolol to be resumed upon discharge Blood pressure is currently within normal limits. Discharge will be coordinated with [facility]. Positional Vertigo, Meclizine PRN Outpatient PT/Ot Hypertension, BP normal now resume home meds Diabetes mellitus: On sliding scale insulin in hospital resume Mounjaro and metformin upon discharge Time Attestation Discharge Coordination Time (in mins): 45 Quality: Safe Use of Opioids Does Pt have an Active Cancer Diagnosis on the Problem List?: No Quality: Stroke Does the patient have a stroke diagnosis?: Yes Reason for No Anti-thrombotic at DC: N/A - Med Ordered Reason for No Anticoagulant at DC: Not indicated Reason Not Initiating IV-Tpa: N/A - Med Ordered Reason for No Anti-thrombotic by Day Two: N/A - Med Ordered Reason for No Statin at DC: N/A - Med Ordered Physical Exam Vital Signs: Vital Signs: Last Vital Signs Temp 98.3 F 08/17/25 08:00 Pulse 79 08/17/25 08:00 Resp 16 08/17/25 08:01 BP 139/72 08/17/25 08:00 Pulse Ox 93 08/17/25 08:00 O2 Del Method Room Air 08/17/25 08:00 FiO2 21 08/17/25 04:00 BMI result Body Mass Index 39.0 DS: Data Data Completed and Pending Labs on day of discharge: Laboratory Results - last 24 hr 08/16/25 08/16/25 08/16/25 11:32 15:58 21:02 POC Glucose 128 H 116 H 109 08/17/25 07:37 POC Glucose 103 Discharge Plan Discharge Anticipated Discharge Date/Time: 08/17/25 08:21 Patient Disposition: Home Health Service Discharge Diagnosis: Acute ischemic stroke, Vertigo, Headache Referrals: Ami Aponte MD [Primary Care Provider, Internal Medicine] - 1 Week Discharge Medications: New atorvastatin 80 mg Tablet 80 mg PO BEDTIME Qty: 90 0RF aspirin 81 mg Tablet,Chewable 81 mg PO DAILY Qty: 90 0RF Continued (DME) blood-glucose meter Kit See Rx Instructions .Route Qty: 1 0RF Rx Instructions: qd (DME) blood-glucose meter [OneTouch Verio Flex meter] Misc See Rx Instructions .Route Qty: 1 0RF Rx Instructions: As directed (DME) OneTouch Verio test strips Strip See Rx Instructions .Route Qty: 100 3RF Rx Instructions: Test blood sugar once a day (DME) lancets [OneTouch Delica Plus Lancet] 30 gauge misc See Rx Instructions .Route Qty: 100 3RF Rx Instructions: Test blood sugar once a day metoprolol succinate 25 mg tablet extended release 24 hr 25 mg PO DAILY Qty: 90 3RF Mounjaro 5 mg/0.5 mL pen injector 5 mg subcut HERNANDEZ triamterene-hydrochlorothiazid 37.5-25 mg tablet 1 tab PO BEDTIME ropinirole 4 mg tablet 4 mg PO BID escitalopram oxalate 20 mg tablet 20 mg PO DAILY bupropion HCl 300 mg tablet extended release 24 hr 300 mg PO DAILY Discontinued atorvastatin 40 mg tablet 40 mg PO DAILY Qty: 90 3RF Diet: Diabetic diet Activity on Discharge: As tolerated Stand Alone Forms: Patient Portal Discharge page Print Language: Hungarian Care Plan Goals: recovery from acute stroke with headache and visual changes Health Concerns: acute stroke headache visual changes Plan of Treatment: take all your medications as prescribed take ASA as directed to reduce risk of stroke Lipitor dose has been increased to 80 mg daily (you can take 2 tabs of previous 40 mg tabs) Follow up with your doctor in a week, call for appontment Follow up with Neurology You will have visiting nurses services at home you may take Tylenol for headache Do not drive if you continue experience vertigo and dizziness Assessment: See above
[2025-08-17] MEDS: buPROPion HCl XL 300 MG TAB.ER.24H PO (08:29)
[2025-08-17] MEDS: 0.9 % Sodium Chloride Flush 3 ML SYRINGE IVFLUSH (08:29)
--- NOTE | 2025-08-17 09:17 | W.MHC.F2F ---
Service Date Service Date: 08/17/25 Encounter Date of encounter: 08/17/25 Reasons for Services Signs and symptoms assessed: stroke with visual problems and right sided weaknes Reason for assisted: CV/CP assess and/or care, neurological assessment, medication management, medication treatment and teach disease management Reason for physical therapy: home safety and mobility, therapeutic exercises and assess need for DME Reason for occupational therapy: home safety and mobility, therapeutic exercises and assess need for DME Homebound: Leaving the home is medically contraindicated at this time without the asist of a device and/or another person due th the listed conditions above and below. Reason homebound: fall risk related to blood pressure changes, weakness related to hospital stay and other (visual impairment) Homebound supporting statement: The patient is homebound due to an acute stroke resulting in right-sided weakness, visual impairment, and dizziness. These deficits significantly impair mobility and balance, making it unsafe for the patient to ambulate independently or operate a vehicle. The patient requires the assistance of another person to leave the home, and leaving home requires considerable and taxing effort. Absences from the home are infrequent and primarily for medical care. Certification: Based on the above findings, I certify that this patient is confined to the home and needs intermittent assisted care, physical therapy and/or speech therapy, or continues to need occupational therapy. The patient is under my care, and I have initiated the establishment of the plan of care. The patient will be followed by a physician who will periodically review the plan of care. Time Spent With Patient Time: Total time managing care of this patient today ____ minutes.
--- NOTE | 2025-08-17 10:05 | MHC.CM.PN ---
Addendum entered by Donna Marquez 08/17/25 10:11: [facility] ACCEPTED AND WILL CONTACT PT DIRECTLY TO [facility]RANGE SOC Original Note: PT CLEARED TO DC HOME TODAY WITH [facility] FOR PT, OT, SN. REFERRAL MADE - AWIATING RESPONSE TO TRANSPORT
== END 2025-08-17 11:06 | disposition home health service (06) | DRG 62 ==
LOC: HO.ED 22:20 → HO.EDOVER 22:27 → HO.ICU 23:10 → HO.EDOVER 08-17 00:09 → HO.ICU 08-17 00:17 → HO.IMC 08-17 07:32
PROVIDERS: Admitting Provider Physician Assistant Medical; Emergency Provider Emergency Medicine Emergency Medical Services; PCP Internal Medicine; Visit Provider Internal Medicine
DX: I63.9 Cerebral infarction, unspecified (principal); G81.91 Hemiplegia, unspecified affecting right dominant side; H53.461 Homonymous bilateral field defects, right side; E78.5 Hyperlipidemia, unspecified; R42 Dizziness and giddiness; R29.703 NIHSS score 3; I10 Essential (primary) hypertension; E11.9 Type 2 diabetes mellitus without complications; Z23 Encounter for immunization; Z79.899 Other long term (current) drug therapy
CPT/HCPCS: 36415; 70450; 70460; 70496; 70498; 80048; 80061; 82947; 84484; 85025; 85610; 85730; 90656; 92610; 93005; 93306; 94660; 97162; 97166; 99285; J1920; J3101; Q9957; Q9967

== ENCOUNTER → 2025-08-15 21:15 | Outpatient (BNV) | payer MEDICARE, OTHER, SELFPAY | PROVIDERS: Admitting Provider Physician Assistant Medical; Emergency Provider Emergency Medicine Emergency Medical Services; PCP Internal Medicine; Visit Provider Internal Medicine Cardiovascular Disease | DX: I51.7 Cardiomegaly (principal); R00.0 Tachycardia, unspecified | CPT/HCPCS: 93010 ==

== ENCOUNTER → 2025-08-15 21:15 | Outpatient (BNV) | payer MEDICARE, OTHER, SELFPAY | PROVIDERS: Emergency Provider Emergency Medicine Emergency Medical Services; PCP Internal Medicine; Visit Provider Student in an Organized Health Care Education/Training Program | DX: I63.9 Cerebral infarction, unspecified (principal) | CPT/HCPCS: 70496; 70498 ==

== ENCOUNTER 2025-08-15 22:20 | Outpatient (BNV) | payer MEDICARE, OTHER, SELFPAY | END 2025-08-16 22:00 | PROVIDERS: Admitting Provider Physician Assistant Medical; Emergency Provider Emergency Medicine Emergency Medical Services; PCP Internal Medicine; Visit Provider Radiology Diagnostic Radiology | DX: I63.9 Cerebral infarction, unspecified (principal) | CPT/HCPCS: 70460 ==

== ENCOUNTER 2025-08-15 22:20 | Outpatient (BNV) | payer MEDICARE, OTHER, SELFPAY | END 2025-08-16 07:00 | PROVIDERS: Admitting Provider Physician Assistant Medical; Emergency Provider Emergency Medicine Emergency Medical Services; PCP Internal Medicine; Visit Provider Internal Medicine Cardiovascular Disease | DX: I34.81 Nonrheumatic mitral (valve) annulus calcification (principal) | CPT/HCPCS: 93306 ==

== ENCOUNTER → 2025-08-15 22:20 | Outpatient (BNV) | payer MEDICARE, OTHER, SELFPAY | PROVIDERS: Admitting Provider Physician Assistant Medical; Emergency Provider Emergency Medicine Emergency Medical Services; PCP Internal Medicine; Visit Provider Psychiatry & Neurology Neurology | DX: I63.9 Cerebral infarction, unspecified (principal) | CPT/HCPCS: 99223 ==

== ENCOUNTER → 2025-08-15 22:20 | Outpatient (BNV) | payer MEDICARE, OTHER, SELFPAY | PROVIDERS: Admitting Provider Physician Assistant Medical; Emergency Provider Emergency Medicine Emergency Medical Services; PCP Internal Medicine; Visit Provider Internal Medicine Critical Care Medicine | DX: I63.9 Cerebral infarction, unspecified (principal); I10 Essential (primary) hypertension | CPT/HCPCS: 99223; 99233 ==

== ENCOUNTER → 2025-08-15 22:20 | Outpatient (BNV) | payer MEDICARE, OTHER, SELFPAY | PROVIDERS: Admitting Provider Physician Assistant Medical; Emergency Provider Emergency Medicine Emergency Medical Services; PCP Internal Medicine; Visit Provider Internal Medicine | DX: I63.9 Cerebral infarction, unspecified (principal); R53.1 Weakness | CPT/HCPCS: G0180 ==

== ENCOUNTER 2025-08-23 09:55 | Outpatient (AMB) | payer MEDICARE, OTHER, SELFPAY ==
[2025-08-23 10:23] VITALS: BP 124/66; PULSE 75; RESP 16; TEMP 36.6; O2SAT 98; BMI 36.0
--- NOTE | 2025-08-23 10:23 | MHC.PC.OV ---
Vital Signs 08/23/25 10:23 Height 5 ft 2 in Weight 197 lb BMI 36.0 BP 124/66 Blood Pressure Location Rt brachial Position Sitting Respiration 16 Pulse 75 Pulse Source Pulse Oximeter Temp 97.9 F Temp Source Oral Pulse Oximetry (%) 98 Oxygen Delivery Method Room Air Intake Visit Reasons: TCM Intake Note: Pt is here today for TCM. Allergies rofecoxib (From Vioxx) Allergy (Intermediate, Verified 08/23/25 10:23) went into CHF Penicillins Allergy (Mild, Verified 08/23/25 10:23) mold allergy NSAIDS (Non-Steroidal Anti-Inflamma Allergy (Verified 08/23/25 10:23) raises cratinine level clarithromycin (From Biaxin) Adverse Reaction (Mild, Verified 08/23/25 10:23) UPSET STOMACH meperidine (From Demerol) Adverse Reaction (Mild, Verified 08/23/25 10:23) cofusion ineffective pain med metformin Adverse Reaction (Verified 08/23/25 11:31) Abdominal Pain Medication List - Last Reconciled 08/23/25 by Ami Aponte MD aspirin 81 mg PO DAILY atorvastatin 80 mg PO BEDTIME blood sugar diagnostic ([employer] Verio test strips) Test blood sugar once a day blood-glucose meter qd blood-glucose meter (Modus [employer]Touch Verio Flex Meter) As directed bupropion HCl XL 300 mg PO DAILY escitalopram oxalate 20 mg PO DAILY lancets ([employer] Delica Plus Lancet) Test blood sugar once a day meclizine 12.5 mg PO TID PRN metoprolol succinate ER 25 mg PO DAILY ropinirole 4 mg PO BID tirzepatide (Mounjaro) 5 mg subcut HERNANDEZ triamterene-hydrochlorothiazid 37.5-25 mg 1 tab PO BEDTIME Tobacco use date assessed: 08/23/25 Last assessed Fall Risk: 08/23/25 Dental Screening Dental Screen Date: 11/28/24 HPI TCM HPI Details Patient presents for transitional care management. Patient was admitted to [facility] from August 15 through August 17 for acute CVA presenting as right hemianopia in right upper extremity weakness. CT of the brain and CT angiogram were negative patient received TNK and right upper extremity weakness and vision change resolved. Repeat brain CT showed no acute bleed or CVA. Patient was discharged home on 80 mg of atorvastatin and 81 mg of ASA, she was taking 81 mg of aspirin before CVA. Patient is established with vascular surgeon at [facility] TCM Information Date of Discharge 08/17/25 Discharged From [facility] Interactive Contact Date (Reference documentation from this date) 08/19/25 [facility] Medical History (Updated 08/23/25 @ 20:19 by Ami Aponte MD) Acute CVA (cerebrovascular accident) Thyroid nodule HTN (hypertension) Anxiety and depression Diabetes type 2, controlled Hyperlipidemia TIA (transient ischemic attack) Hx of respiratory syncytial virus infection Surgical History (Updated 08/23/25 @ 20:19 by Ami Aponte MD) Hx of colonoscopy H/O carotid endarterectomy History of right salpingo-oophorectomy History of total replacement of right shoulder joint History of total right knee replacement Hx of laparoscopic gastric banding H/O lumpectomy Family History Father Hypertension Heart disease Mother Hypertension Osteoporosis Diabetes Mental health disorder Social History Household Members: Spouse Household Members Other:: retired nurse, , 2 daughters, 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, Housing: House Do you presently have visiting nurse or other home services: No Alcohol intake: current Alcohol intake frequency: does not drink Patient Tobacco Use Status: Never used Tobacco e-Cigarette/Vaping Use: Never Used Advance Directives Date on File: 12/16/22 service: No Current occupational status: retired Cognitive needs: No Hearing needs: No Vision needs: Yes Questionnaire PHQ-9 Over the last 2 weeks, how often have you been bothered by any of the following problems? 1. Little interest or pleasure in doing things: not at all 2. Feeling down, depressed, or hopeless: not at all 3. Trouble falling or staying asleep, or sleeping too much: not at all 4. Feeling tired or having little energy: not at all 5. Poor appetite or overeating: not at all 6. Feeling bad about yourself - or that you are a failure or have let yourself or your family down: not at all 7. Trouble concentrating on things, such as reading the newspaper or watching television: not at all Source: Developed by Drs. Cory Gonzalez, Tracy Louis, Nestor Bill and colleagues, with an educational adela from [employer]. Thrive Questionnaire Date Thrive assessed: 08/21/25 I am a: Patient What is your living situation today?: I choose not to answer this question Within the past 12 months, did the food you bought not last and you didn't have the money to get more?: I choose not to answer this question Within the past 12 months, did you worry whether your food would run out before you got money to buy more?: I choose not to answer this question Do you have trouble paying for medicines?: I choose not to answer this question Do you have trouble getting transportation to medical appointments?: I choose not to answer this question Do you have trouble paying your heating and electricity bill?: I choose not to answer this question Do you have trouble taking care of your child, family member or friend?: I choose not to answer this question Do you have trouble with day-to-day activities such as bathing, preparing meals, shopping, managing finances, etc.?: No Are you currently unemployed and looking for a job?: I choose not to answer this question Are you interested in more education?: I choose not to answer this question Please select the resources that you would like help with: None Currently or been in a relationship where the following occur: No concerns reported THRIVE Score: 0 AUDIT C Alcohol Use Questionnaire (AUDIT-C) 1. How often do you have a drink containing alcohol?: Never 3. How often do you have six or more drinks on one occasion?: Never Total Score: 0 ANNMARIE-7 AMB Questionnaire ANNMARIE-7 Date ANNMARIE - 7 assessed: 11/28/24 Feeling nervous, anxious, or on edge: 0 = Not at all Not being able to stop or control worryin = Not at all Worrying too much about different things: 0 = Not at all Trouble relaxin = Not at all Being so restless that it is hard to sit still: 0 = Not at all Becoming easily annoyed or irritable: 0 = Not at all Feeling afraid as if something awful might happen: 0 = Not at all Total ANNMARIE-7 score (0-4 normal; 5-9 mild; 10-14 moderate; 15-21 severe): 0 Source: Developed by Drs. Cory Gonzalez, Tracy Louis, Nestor Bill and colleagues, with an educational adela from [employer]. Review of Systems Const All systems reviewed & are unremarkable except as noted in HPI and below Eyes Reports no additional complaints ENT Reports no additional complaints Card Reports no additional complaints Resp Reports no additional complaints GI Reports no additional complaints Reports no additional complaints Physical exam (Primary Care) Vital Signs: Last Vital Signs Temp 97.9 F 08/23/25 10:23 Pulse 75 08/23/25 10:23 Resp 16 08/23/25 10:23 BP 124/66 08/23/25 10:23 Pulse Ox 98 08/23/25 10:23 Oxygen Delivery Method Room Air 08/23/25 10:23 BMI result Body Mass Index 36.0 Tobacco/Smoking Status: Tobacco use Status Tobacco use date assessed 08/23/25 08/23/25 10:25 Patient Tobacco Use Status Never used Tobacco 08/23/25 10:25 e-Cigarette/Vaping Use Never Used 08/23/25 10:25 Thrive Assessment: Date of Thrive Assessment Date Thrive assessed 08/21/25 08/23/25 10:25 Currently or been in a relationship where the following occur: No concerns reported Const General: no acute distress HENMT Head: Yes normal to inspection Face and sinus: Yes normal facial exam Eyes General: appearance normal, both eyes and all related structures Neck Neck: Yes no lymphadenopathy and Yes supple Resp Effort & Inspection: normal respiratory effort Auscultation: clear to auscultation bilaterally Cardio Rhythm: regular rhythm Heart sounds: S1 normal heart sound present and S2 normal heart sound present GI Inspection: Yes normal to inspection Palpation (GI): Soft to palpation Percussion: Yes normal to percussion Auscultation: normal bowel sounds Neuro Cranial nerves: Yes CN's II-XII intact bilaterally Gait exam (Neuro): Normal gait present Motor exam (neuro): 5/5 motor strength present throughout Coding Level of Care Code Est Pt Level 4 (45915) Diagnoses Acute CVA (cerebrovascular accident) I63.9 Diabetes type 2, controlled E11.9 Hyperlipidemia E78.5 Assessment & Plan Assessment & Plan (1) Acute CVA (cerebrovascular accident): Comment: Right hemianopia and right upper extremity weakness, Admitted to [facility] from08/15-08/17/2025, received TNK, symptoms resolved Code(s): I63.9 - Cerebral infarction, unspecified Category: Medical Plan: Patient was advised to continue taking 80 mg of atorvastatin and she will discuss with the vascular surgeon adding 2nd antiplatelet agent such as clopidogrel to 81 mg of ASA, obtain 7 day Holter to rule out occult AFib. 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 She was explained the need for high dose of statin in the setting of recurrent TIA /CVA Orders: Orders Comprehensive [place]. Panel Fast 3 Months E11.9 - Type 2 diabetes mellitus without complications, E55.9 - Vitamin D deficiency, unspecified, E78.5 - Hyperlipidemia, unspecified, I63.9 - Cerebral infarction, unspecified Lipid Panel 3 Months E11.9 - Type 2 diabetes mellitus without complications, E55.9 - Vitamin D deficiency, unspecified, E78.5 - Hyperlipidemia, unspecified, I63.9 - Cerebral infarction, unspecified Hemoglobin A1c 3 Months E11.9 - Type 2 diabetes mellitus without complications, E55.9 - Vitamin D deficiency, unspecified, E78.5 - Hyperlipidemia, unspecified, I63.9 - Cerebral infarction, unspecified Microalbumin, Random (w Creat) 3 Months E11.9 - Type 2 diabetes mellitus without complications, E55.9 - Vitamin D deficiency, unspecified, E78.5 - Hyperlipidemia, unspecified, I63.9 - Cerebral infarction, unspecified Vitamin D 25-OH Total 3 Months E11.9 - Type 2 diabetes mellitus without complications, E55.9 - Vitamin D deficiency, unspecified, E78.5 - Hyperlipidemia, unspecified, I63.9 - Cerebral infarction, unspecified ECG 7 day holter monitor Today I63.9 - Cerebral infarction, unspecified Complete Blood Count Auto Diff 3 Months E11.9 - Type 2 diabetes mellitus without complications, E55.9 - Vitamin D deficiency, unspecified, E78.5 - Hyperlipidemia, unspecified, I63.9 - Cerebral infarction, unspecified TSH reflex Free T4 3 Months E11.9 - Type 2 diabetes mellitus without complications, E55.9 - Vitamin D deficiency, unspecified, E78.5 - Hyperlipidemia, unspecified, I63.9 - Cerebral infarction, unspecified Medications: New ketoconazole 2% 1 appl topical 2XW 120 mL 2RF Refilled metoprolol succinate ER 25 mg PO DAILY 90 tabs 3RF
--- OUTSIDE RECORDS SUMMARY | 2025-08-23 10:37 | XMS_ITS | Patient Health Record ---
Author Organization [facility] Address [address] [place] [address] Care Team Providers Care Golf Ball Inspector Name Role Phone Ami Aponte MD Primary Care Provider Cory To Unavailable [phone] Reason For Referral No Information Plan Of Treatment Next Appt Details Provider Name:Cory Neal , 09/25/2025 10:00:00 AM, [address], [address], [place], [address], Insurance Providers Payer Name Payer Address Payer Phone Subscriber Number Group Number Insured Name Patient Relationship to Insured Coverage Start Date Coverage End Date MEDICARE OF [place] [address] [place] [address] [phone] [id number] KARRI VENEGAS Self - patient is the insured [facility] [address] [address] [place] [address] [phone] [id number] KARRI VENEGAS Self - patient is the insured
--- OUTSIDE RECORDS SUMMARY | 2025-08-23 10:37 | XMS_ITS | Patient Health Record ---
[facility] Address [address] [place] [address] Care Team Providers Care Quality Eng Name Role Phone Dick Zhao MD Primary Care Provider Rodrigo Meneses Unavailable [phone] Allergies Allergen (clinical drug ingredient) Drug/Non Drug [...] Treatment Pending Test Test Name Order Date [id number] Plate 04/19/2016 [id number] <25 sq cm 05/05/2016 Insurance Providers Payer Name Payer Address Payer Phone Subscriber Number Group Number Insured Name Patient Relationship to Insured Coverage Start Date Coverage End Date [facility] [address] [place] [phone] [id number] Maryann Barlow Self - patient is the insured [facility] Claims [facility] Office of Community Care [address] [address] [place] [address] [id number] Maryann Barlow Self - patient is the insured Medical (General) History Medical History History ICD Code Arthritis scarlet fever neuropathy measles hypertension headaches/migraines depression chicken pox cancer back, hip, knee pain Surgical History Surgery Date(Month/Year) hand/wrist 2006,2007
--- OUTSIDE RECORDS SUMMARY | 2025-08-23 10:37 | XMS_ITS | Data Portability ---
Author Organization [place] [facility], Allergy Address [address] [place] [address] Care Team Providers Care Outreach Counselor Name Role Phone PÉREZ KAHN Referring Provider [...] clearance. Otherwise, she may follow-up as needed. [email or web address] Not available 08/24/2024 15:16:12 Plan of Treatment [...] audio gram No observ ation record ed. [email or web address] Not Available 08/04 09:59:23 08/27/20 24 audio gram No observ ation record ed. [email or web address] Not Available 08/04 10:00:33 Result Notes None recorded. Problems Name Problem SNOMED Code Status Onset Date Resolution Date Notes Provider Name and Address Organization Details Recorded Time [facility] [employer] [facility] 694656711 Active 2014 [facility] [employer] [facility]; Note: Date Diagnose d: 07/23/20 15 2:02 PM (R42) Not Available [facility] 4 02:27:54 Sensorin eural hearing loss 24447281 Active 2014 Sensorin eural hearing loss, unilater al, left ear, with unrestri cted hearing on the contrala teral side; Note: Date Diagnose d: 07/23/20 15 2:02 PM (H90.42) Not Available [facility] 4 02:27:52 Hyperacu sis of left ear [id number] 67276 Completed 201505/04/2024 Hyperacu sis, left ear; Note: Date Diagnose d: 6 9:15 AM (H93.232 ) Not Available [facility] 4 02:27:50 Follow-u p visit Active 2015 Encounte r for follow-u p examinat ion after complete d treatmen t for conditio ns other than malignan t neoplasm ; Note: Date Diagnose d: 08/12/20 16 1:47 PM (Z09) Not Available [facility] 4 02:27:47 Nasal congesti on 30464790 Active 2016 Nasal congesti on; Note: Date Diagnose d: 7 10:42 AM (R09.81) Not Available [facility] 4 02:28:05 Hypertro phy of nasal turbinat es 01724766 Active 2016 Hypertro phy of nasal turbinat es; Note: Date Diagnose d: 7 10:41 AM (J34.3) Not Available [facility] 4 02:28:07 Sudden idiopath ic hearing loss 193919371 Active 2017 Sudden idiopath ic hearing loss, right ear; Note: Date Diagnose d: 8 4:52 PM (H91.21) Not Available [facility] 4 02:28:01 Migraine 93182436 Active 2018 Other migraine , not intracta ble, without status migraino emir; Note: Date Diagnose d: 9 2:26 PM (G43.809 ) Not Available [facility] 4 02:27:44 Tinnitus of left ear 08148232865 06 Active 2019 Tinnitus , left ear; Note: Date Diagnose d: 0 11:37 AM (H93.12) Tinnit us, left ear; Note: Date Diagnose d: 07/23/20 15 2:02 PM (H93.12) ; Start Date : 07/23/20 15 Not Available [facility] 4 02:27:50 Obstruct darrian sleep apnea syndrome 68303996 Active 2020 Obstruct darrian sleep apnea (adult) (pediatr ic); Note: Date Diagnose d: 1 11:24 AM (G47.33) Not Available [facility] 4 02:28:03 Sensorin eural hearing loss of bilatera l ears 841465109 Active 2020 Sensorin eural hearing loss, bilatera l; Note: Date Diagnose d: 1 11:14 AM (H90.3) Not Available [facility] 4 02:27:48 Allergic rhinitis 97711366 Active 2021 Allergic rhinitis : Due to [...] ; Note: Date Diagnose d: Not Available [facility] 4 02:28:02 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 577041 Active 2022 Injury of accessor y nerve, left side, initial encounte r; Note: Date Diagnose d: 3 1:41 PM (S04.72X A) Not Available [facility] 4 02:28:08 Paralysi s of larynx 84746081 Active 2022 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 Procedures Surgical History Date Name Laterality Status Provider Name and Address Organization Details Recorded Time 08/24/2024 Comp Audio with Tymps - 72216 & 61588 completed JACKIE CHURCHILL [address] [facility],[place] [address], [place], [address], [place] [facility] 08/24/2024 14:48:33 08/24/2024 FOL_DP completed OMAR ROBLERO PA-C [address] [facility],[place] [address], [place], [address], [place] [facility] 08/24/2024 14:41:15 Imaging Results None recorded. Procedure Notes None recorded. Medical Equipment None Reported. Allergies No known drug allergies Medications Name Sig Start Date Stop Date Status Note LastModified by Organization Details LastModified Time Refresh Tears 0.5 % eye drops 2015 active Medicati on ID: [id number] B rand Name: Refresh Tears Se nd Method: E-Prescr ibed Sub s Allowed: subs OK Medic ationGen ericName : Refresh Tears Not Available Not Available Not Available desonide 0.05 % topical cream 2015 active Medicati on ID: [id number] B rand Name: desonide Send Method: E-Prescr ibed Sub s Allowed: subs OK Medic ationGen ericName : desonide Not Available Not Available Not Available prednison e 10 mg tablet 01/11 completed Medicati on ID: 107054 P álvarorimoise d By Name: Jodi Henriquez [...] dose pack 06/13 completed Medicati on ID: [id number] P rescribe d By Name: Jodi Henriquez nd Name: Medrol (Darell) Se nd Method: E-Prescr ibed Sub s Allowed: subs OK Speci al Instruct ion: take as instruct ed Medic ationGen ericName : Medrol (Darell) Not Available Not Available Not Available sulfaceta mide sodium 10 % eye ointment 06/13 completed Medicati on ID: 413018 R mino: () Brand Name: sulfacet amide [...] a day 2021 active Medicati on ID: [id number] P rescribe d By Name: Jodi Henriquez nd Name: triamter narendra-hydr ochlorot hiazid S end Method: E-Prescr ibed Sub s Allowed: subs OK Medic ationGen ericName : triamter narendra-hydr ochlorot hiazid Not Available Not Available Not Available levothyro xine 25 mcg tablet 2015 active Medicati on ID: 436772 B rand Name: levothyr oxine Se nd Method: E-Prescr ibed Sub s Allowed: subs OK Medic ationGen ericName : levothyr oxine Not Available Not Available Not Available propranol ol 10 mg tablet 04/29 completed Medicati on ID: 532104 B rand Name: proprano lol Send Method: E-Prescr ibed Sub s Allowed: subs OK Medic ationGen ericName : proprano lol Not Available Not Available Not Available lorazepam 0.5 mg tablet TAKE 0.5-1 TABLET BY MOUTH EVERY DAY NEEDED active Not Available Not Available No t Available ropinirol e 2 mg tablet 2015 active Medicati on ID: 710833 B rand Name: ropiniro le Send Method: E-Prescr ibed Sub s Allowed: subs OK Medic ationGen ericName : ropiniro le Not Available Not Available Not Available simvastat in 20 mg tablet 2015 active Medicati on ID: [id number] B rand Name: simvasta tin Send Method: E-Prescr ibed Sub s Allowed: subs OK Medic ationGen ericName : simvasta tin Not Available Not Available Not Available oxycodone 5 mg capsule TAKE ONE CAPSULE BY MOUTH EVERY SIX HOURS FOR THREE DAYS*DUE 08/09* active Not Available Not Available No t Available gabapenti n 300 mg capsule 2021 active Medicati on ID: [id number] B rand Name: gabapent in Send Method: E-Prescr ibed Sub s Allowed: subs OK Medic ationGen ericName : gabapent in Not Available Not Available Not Available hydroxyzi ne HCl 25 mg tablet 2020 active Medicati on ID: [id number] B rand Name: hydroxyz ine HCl Send Method: E-Prescr ibed Sub s Allowed: subs OK Speci al Instruct ion: TAKE 1 TABLET (25 MG TOTAL) BY MOUTH EVERY 6 HOURS NEEDED FOR ITCHING Medicati onGeneri cName: hydroxyz ine HCl Not Available Not Available Not Available magnesium 250 mg tablet 2015 active Medicati on ID: 792835 B rand Name: magnesiu m Send Method: E-Prescr ibed Sub s Allowed: subs OK Medic ationGen ericName : magnesiu m Not Available Not Available Not Available irbesarta n 150 mg tablet 2015 active Medicati on ID: 259058 B rand Name: irbesart an Send Method: E-Prescr ibed Sub s Allowed: subs OK Medic ationGen ericName : irbesart an Not Available Not Available Not Available Wellbutri n 100 mg tablet 08/24 completed Medicati on ID: [id number] B rand Name: Wellbutr in Send Method: E-Prescr ibed Sub s Allowed: subs OK Medic ationGen ericName : Wellbutr in Not Available Not Available Not Available epinephri ne 0.3 mg/0.3 mL injection , auto-inje ctor 2021 active Medicati on ID: 145229 D uration Value: 1 Brand Name: epinephr ine Send Method: E-Prescr ibed Sub s Allowed: subs OK Speci al Instruct ion: INJECT 1 PEN INJECTOR INTRAMUS CULARLY. SINGLE DOSE NEEDED M maureen Michelle Name: odetter ine Not Available Not Available Not Available Lucinda 5 mg-325 mg tablet 1-2 tablet by mouth 08/24 completed Medicati on ID: [id number] D uration Value: 7 Prescri bed By Name: EVARISTO Segura nd Name: Lucinda Se nd Method: E-Prescr ibed Sub s Allowed: subs OK Medic ationGen ericName : Lucinda Not Available Not Available Not Available multivita min capsule 2015 active Medicati on ID: 529324 B rand Name: multivit gifford Sen d Method: E-Prescr ibed Sub s Allowed: subs OK Medic ationGen ericName : multivit gifford Not Available Not Available Not Available fluticaso ne propionat e 50 mcg/actua tion nasal spray,emir pension [place] 2 spray into both nostrils once a day 2021 active Medicati on ID: [id number] D uration Value: 90 Prescri bed By Name: Jodi Henriquez nd Name: fluticas one propiona te Send Method: E-Prescr ibed Sub s Allowed: subs OK Speci al Instruct ion: may use twice a day as needed M maureen Michelle Name: fluticas one propiona te Not Available Not Available Not Available naproxen 500 mg tablet 03/16 completed Medicati on ID: 144649 R mino: () Brand Name: naproxen Send Method: E-Prescr ibed Sub s Allowed: subs OK Medic ationGen ericName : naproxen Not Available Not Available Not Available oxycodone 5 mg tablet TAKE 1 TABLET ORALLY 2 TIMES A DAY NEEDED FOR PAIN 08/24 completed Not Available Not Available Not Available Lexapro 20 mg tablet 2015 active Medicati on ID: 722432 B rand Name: Lexapro Send Method: E-Prescr [...] extended release 2020 active Medicati on ID: 519030 B rand Name: bupropio n HCl Send Method: E-Prescr ibed Sub s Allowed: subs OK Speci al Instruct ion: TAKE 1 TABLET BY MOUTH EVERY DAY IN THE MORNING Medicati onGeneri cName: bupropio n HCl Not Available Not Available Not Available solifenac in 5 mg tablet 2020 active Medicati on ID: 035182 B rand Name: solifena pily Send Method: E-Prescr ibed Sub s Allowed: subs OK Speci al Instruct ion: TAKE 1 TABLET BY MOUTH EVERY DAY Medi cationGe nericNam e: solifena pily Not Available Not Available Not Available Calcium 600 + Minerals 600 mg-10 mcg (400 unit) tablet 2015 active Medicati on ID: [id number] B rand Name: Calcium 600 + Minerals Send Method: E-Prescr ibed Sub s Allowed: subs OK Medic ationGen ericName : Calcium 600 + Minerals Not Available Not Available Not Available Vitamin D3 125 mcg (5,000 unit) tablet 2017 active Medicati on ID: [id number] B rand Name: Vitamin D3 Send Method: E-Prescr ibed Sub s Allowed: subs OK Medic ationGen ericName : Vitamin D3 Not Available Not Available Not Available Vitals None Recorded Social History None recorded. Functional Status None recorded. Mental Status None recorded. Family History Nothing Reported. Medical History Condition Response Anxiety Y Sleep Disorder Y High Cholesterol Y Cancer Y Migraines Y Hypertension Y Depression Y Gynecological HistoryNo gynecological history recorded. Obstetrics History GPAL:G 0 P 0 0 0 0 Past Encounters Encounter ID Performer Location Encounter Start Date Encounter Closed Date Diagnosis/Indication Diagnosis SNOMED-CT Code Diagnosis ICD10 Code Diagnosis IMO Codes Diagnosis Note [id number] OMAR ROBLERO PA-C [facility] [address] [address] 08/24/2024 13:36:16 08/24/2024 15:15:03 Chronic hoarseness [id number] 105 R49.0 Sensorineu ral hearing loss of bilateral ears 455611514 H90.3 [id number] JACKIE CHURCHILL [facility] [address] [facility] [place] [address] 08/24/2024 14:47:39 08/27/2024 08:12:02 Sensorineural hearing loss of bilateral ears 222503080 H90.3 Audiologic al evaluation results: Right ear: [...] Member ID Guarantor Name 08/27/2024 1 MEDICARE B-AK: [employer] Maryann Prajapati [id number] 1 Maryann Prajapati 08/27/2024 2 () Maryann Prajapati [id number] Maryann Prajapati Notes Date Note Type Note [...] significant head injury. She was evaluated at [facility]. A CT scan showed no brain bleed but did show incidental carotid stenosis and a hypodense thyroid nodule measuring 1 cm. She has a biopsy scheduled next Tuesday at [facility]. Her primary care would like her vocal cords evaluated in preparation for any surgery she may require. She is also having trouble hearing out of her right ear since her fall. She believes she struck that side during her fall. History of Baha on the left side. NILSON GABRIEL MD [address] [place] [address], [place], [address], [facility] 08/24/2024 17:39:05 OBGyn Episode No OBEpisode recorded.
--- OUTSIDE RECORDS SUMMARY | 2025-08-23 10:37 | XMS_ITS | Clinical Summary ---
Author Organization [facility] Address [address] [facility] [address] [place] [address] Phone Care Team Providers Care Speeder Worker Name Role Phone Ami Aponte MD Primary Care Provider [phone] Allergies Active Allergy Reactions Criticality Noted Date [...] Well-controlled hypertension 01/04/2010 Anxiety and depression 10/03/1989 assisted current use of oral hypoglycemic drug Long-term current use of inj ectable noninsulin antidiabetic medication Encounters Date Type Department Care Team Description 07/01/2025 2:00 PM EDT Nurse Only [facility] Derm[facility] Surgery [address] [place] [address] Abdon Bowen MD, PhD Basal cell carcinoma of right ala nasi (Primary Dx) 06/26/2025 Telephone [facility] Dermatology Surgery [address] [place] [address] Cristal Blandon, BURKE 06/26/2025 Telephone [facility] Dermatology Surgery [address] [place] [address] Cristal Blandon RN 06/25/2025 Telephone [facility] Dermatology Surgery [address] [place] [address] Cristal Blandon RN 06/24/2025 8:30 AM EDT Office Visit [facility] Dermatology Surgery [address] [place] [address] Abdon Bowen MD, PhD Basal cell carcinoma of right ala nasi (Primary Dx) from Last 3 Months Immunizations Immunization Administration [...] Care Team (Late st Contact Info) Description 10/07/2025 11:20 AM EST Office Visit [facility] Endocrinology [address] [place] [address] Anne-Marie Mckeon MD [address] [place] [id number] [email or web address] 10/29/2025 2:00 PM EST Office Visit [facility] Dermatology Surgery [address] [place] [address] Abdon Bowen MD, PhD [address] [place] [address] [address] [place] [address] [email or web address] Health Maintenance Due Date Last Done [...] Procedure Name Priority Date/Time Associated Diagnosis Comments BASIC METABOLIC PANEL (BMP) Routine 05/04/2025 1:35 PM EDT Type 2 diabetes mellitus with peripheral neuropathy HEMOGLOBIN A1C Routine 04/08/2025 3:13 PM EDT Type 2 diabetes mellitus with peripheral neuropathy HM DEXA SCAN Routine 09/16/2022 2:38 PM EST from Last 3 Months or Most Recently Relevant to Health Maintenance Results * Basic metabolic panel (05/04/2025 1:35 PM EDT) Blood us Anne-Marie Mckeon MD LAB BLOOD BKR ORDERABL ES Final Result Performing Organization Address [facility]/ZIP Co de Phone Number [address] [address] * (ABNORMAL) Hemoglobin A1c (04/08/2025 3:13 PM EDT) HEMOGLOBIN A1C 7.7(H) 4.3 - 5.8 % [facility] Blood 04/08/2025 3:13 PM EDT 04/08/2025 3:17 PM EDT us Anne-Marie Mckeon MD LAB BLOOD BKR ORDERABL ES Final Result Performing Organization Address [facility]/ZIP Co de Phone Number [address] [address] * HM DEXA SCAN (09/16/2022 2:38 PM EST) Impressions Sierra Hamilton CMA - 09/16/2022 2:38 PM EST normal Servando Roa MD HEALTH MAINTENANCE Edited Result - Final from Last 3 Months or Most Recently Relevant to Health Maintenance Insurance MEDICARE PART A & B [facility] [place] [address] MEDICARE PART A & B [facility] [place] [address] MEDICARE PART A & [place] [address] [address] [place] [address] MEDICARE PART A & B [facility] [place] [address] MEDICARE PART A & B [facility] [place] [address] MEDICARE PART A & [place] [address] MEDICARE PART A & B [facility] [place] [address] MEDICARE PART A & B [facility] [place] [address] MEDICARE PART A & B [facility] [place] [address] Care Teams Speeder Worker Relationship Specialty Start Date End Date Ami Aponte MD [facility] [place] [address] PCP - General Internal Medicine 08/21/24 Additional Source Comments The information contained in this document represents components of the legal health record. It is not the complete legal health record.[facility]
--- OUTSIDE RECORDS SUMMARY | 2025-08-23 10:38 | XMS_ITS | Data Portability ---
Author Organization [facility], [facility] Address [address] [place] [address] Care Team Providers Care Body Welder Name Role Phone PÉREZ KAHN Referring Provider PÉREZ KAHN Primary Care Provider Assessment Encounter Date Assessment Date Assessment LastModified by Organization Details LastModified Time 03/22/2025 03/22/2025 Assessment: Pt cont to demonstrate good marlen for rx-able to increase wts today. Plan: Continue to progress rom UE strengthening as marlen. [email or web address] Not available 03/22/2025 12:09:00 04/12/2025 04/12/2025 Assessment: Pt demonstrates minimal loss in prom-difficulty elevating UE. Plan: Continue to progress rom and UE strengthening as marlen. [email or web address] Not available 04/12/2025 15:18:39 04/18/2025 04/18/2025 Assessment: Pt demonstrates ongoing limited shoulder rom-better marlen for rx today. Advised pt to resume gentle strengthening at home. Plan: Continue to progress rom and UE strengthening as marlen. [email or web address] Not available 04/18/2025 14:05:11 04/25/2025 04/25/2025 Assessment: Pt self admits to not doing much at home due to her dog being sick-review of HEP today. Plan: Continue to progress rom and UE strengthening as marlen. [email or web address] Not available 04/25/2025 11:23:59 05/03/2025 05/03/2025 Assessment: Pt demonstrates improved flexion and ER, IR remains tight. Plan: Continue to progress rom and UE strengthening as marlen. Not available 05/03/2025 15:17:21 Plan of Treatment [...] and Address Organization Details Recorded Time 5 98314 Therapeutic Exercise (1:1) completed Joceline Aguirre, DAVID [address], [place], [address], [facility] 05/02/2025 08:49:04 5 36630: Manual therapy completed Joceline Aguirre PTA [address], [place], [address], [facility] 05/02/2025 08:49:04 5 37695 Therapeutic Exercise (1:1) completed Joceline Aguirre, DAVID [address], [place], [address], [facility] 04/25/2025 09:52:07 5 14876: Manual therapy completed Joceline Aguirre PTA [address], [place], [address], [facility] 04/25/2025 09:52:13 5 26597 Therapeutic Exercise (1:1) completed Joceline Aguirre PTA [address], [place], [address], [facility] 04/18/2025 14:05:26 5 23666: Manual therapy completed Joceline Aguirre PTA [address], [place], [address], [facility] 04/18/2025 14:05:29 5 91635 Therapeutic Exercise (1:1) completed Joceline Aguirre PTA [address], [place], [address], [facility] 04/11/2025 10:37:04 5 05369: Manual therapy completed Joceline Aguirre, CONSUMER ANALYST [address], [place], [address], [facility] 04/11/2025 10:37:04 5 04736 Therapeutic Exercise (1:1) cancelled Joceline Aguirre, CONSUMER ANALYST [address], [place], [address], [facility] 03/26/2025 15:05:14 5 76730: Manual therapy cancelled Joceline Aguirre, CONSUMER ANALYST [address], [place], [address], [facility] 03/26/2025 15:05:14 5 51860 Therapeutic Exercise (1:1) completed Joceline Aguirre, CONSUMER ANALYST [address], [place], [address], [facility] 03/21/2025 19:36:50 5 52409: Manual therapy completed Joceline Aguirre CONSUMER ANALYST [address], [place], [address], [facility] 03/21/2025 19:36:50 5 51873 Therapeutic Exercise (1:1) cancelled Joceline Aguirre, CONSUMER ANALYST [address], [place], [address], [facility] 03/18/2025 08:29:17 5 47238: Manual therapy cancelled Joceline Aguirre, CONSUMER ANALYST [address], [place], [address], [facility] 03/18/2025 08:29:17 5 04448 Therapeutic Exercise (1:1) completed Joceline Aguirre, CONSUMER ANALYST [address], [place], [address], [facility] 03/13/2025 19:34:05 5 39076: Manual therapy completed Joceline Aguirre, CONSUMER ANALYST [address], [place], [address], [facility] 03/13/2025 19:34:05 5 35619 Therapeutic Exercise (1:1) completed Joceline Aguirre, CONSUMER ANALYST [address], [place], [address], [facility] 03/10/2025 08:43:37 5 18472: Manual therapy completed Joceline Aguirre, CONSUMER ANALYST [address], [place], [address], [facility] 03/10/2025 08:43:37 5 62905 Therapeutic Exercise (1:1) completed Joceline Aguirre CONSUMER ANALYST [address], [place], [address], [facility] 02/27/2025 20:11:11 5 51047: Manual therapy completed Joceline Aguirre, CONSUMER ANALYST [address], [place], [address], [facility] 02/27/2025 20:11:11 5 19748 Therapeutic Exercise (1:1) completed Joceline Aguirre, CONSUMER ANALYST [address], [place], [address], [facility] 02/26/2025 13:11:49 5 11752: Manual therapy completed Joceline Aguirre, CONSUMER ANALYST [address], [place], [address], [facility] 02/26/2025 13:11:51 5 22677 Therapeutic Exercise (1:1) completed Yoselin Moser DPT [address], [place], [address], [facility] 02/14/2025 09:39:37 42208: Manual therapy completed Yoselin Moser DPT [address], [place], [address], [facility] 02/14/2025 09:39:37 5 85893 Therapeutic Exercise (1:1) completed Yoselin Moser DPT [address], [place], [address], [facility] 02/08/2025 10:03:23 5 24710: Manual therapy completed CLIFTON AlvarezT [address], [place], [address], [facility] 02/08/2025 10:03:23 5 94747 Therapeutic Exercise (1:1) completed Yoselin Moser DPT [address], [place], [address], [facility] 02/06/2025 08:45:25 5 19307: Manual therapy completed Yoselin Moser DPT [address], [place], [address], [facility] 02/06/2025 08:45:25 5 55541 Therapeutic Exercise (1:1) completed Yoselin Moser DPT [address], [place], [address], [facility] 02/01/2025 17:27:25 5 94097: Manual therapy completed Yoselin Moser DPT [address], [place], [address], [facility] 02/01/2025 17:27:25 5 47497 Therapeutic Exercise (1:1) completed CLIFTON AlvarezT [address], [place], [address], [facility] 01/28/2025 12:17:42 5 95550: Manual therapy completed CLIFTON AlvarezT [address], [place], [address], [facility] 01/28/2025 12:18:00 5 69393 Therapeutic Exercise (1:1) completed Yoselin Moser DPT [address] [facility], [place], [address], [facility] 01/23/2025 11:48:50 5 45145: Low complexity PT Eval completed Yoselin Moser DPDanny [address], [place], [address], [facility] 01/23/2025 11:48:52 5 G8417 BMI Above Upper Parameters, F/U Documented completed Yoselin Moser DPT [address], [place], [address], [facility] 01/22/2025 11:29:19 5 G8427 Current Medication Documented completed Yoselin Moser DPT [address], [place], [address], [facility] 01/22/2025 11:29:23 3 Vascular Surgery completed DIAN GLOVER [facility] 01/21/2025 13:51:27 3 Knee Surgery completed DIAN GLOVER [facility] 01/21/2025 13:48:30 2 Knee Surgery completed DIAN GLOVER [facility] 01/21/2025 13:48:30 4 Shoulder Surgery completed DIAN LGOVER [facility] 01/21/2025 13:48:30 8 Hand Surgery completed DIAN GLOVER [facility] 01/21/2025 13:48:30 7 Hand Surgery completed DIAN GLOVER [facility] 01/21/2025 13:48:30 Imaging Results None recorded. Procedure Notes None recorded. Medical Equipment None Reported. Allergies Allergen ID Allergen Name Allergen Category Reaction Reaction Severity Criticality Documentation Date Start Date Code Code System Note Provider Name and Address Organization Details Recorded Time 35770 Demerol medicatio n Not available Not available Not available 12/05/20232021 34781 1 RxNorm Not Available [facility] 4 11:53:38 25821 mold extract environme nt Not available Not available Not available 12/05/20232021 07639 8 RxNorm Not Available [facility] 4 11:53:38 75341 Biaxin medicatio n nausea other severe severe high 12/05/2023202172 9 RxNorm CHF DIAN BELEN herring [place] - [facility] 5 13:49:16 57617 Non-stero idal anti-infl ammatory agent (substanc e) medicatio n Not available Not available Not available 12/05/20232021 68218 5008 SNOMED Not Available [facility] 4 11:53:39 38118 Product containin g penicilli n (product) medicatio n Not available Not available Not available 12/05/20232021 15309 8001 SNOMED Not Available [facility] 11:53:39 Medications Name Sig Start Date Stop [...] Status Never Smoker DIAN herring [place] - [facility] 01/21/2025 [...] History Nothing Reported. Medical History Condition Response Allergies/Hayfever Y Diabetes Y Anxiety/Depression Y Sleep Apnea Y Stroke Y Hypertension Y Gynecological HistoryNo gynecological history recorded. Obstetrics History GPAL:G 0 P 0 0 0 0 Past Encounters Encounter ID Performer Location Encounter Start Date Encounter Closed Date Diagnosis/Indication Diagnosis SNOMED-CT Code Diagnosis ICD10 Code Diagnosis IMO Codes Diagnosis Note [id number] MD Ishan Kaplan [address] [place] [id number] 04/02/2024 09:10:49 04/19/2024 16:17:41 Pain of left hip joint 6563679631 90782 M25.427 [id number] Lexus Wills MD [facility] [address] [place], [place] [id number] 01/21/2025 13:37:44 01/31/2025 14:26:49 History of artificial joint 643466590 Z96.611 [id number] Yoselin Benjaminnancy, DPT [facility] [address] [place] [id number] 01/23/2025 07:11:06 01/23/2025 09:19:08 Finding of scapular structure 201335435 G25.89 [id number] Yoselin Ehsan, DPT [facility] [address] [place] [id number] 01/28/2025 08:00:02 01/28/2025 08:52:16 Finding of scapular structure 864056394 G25.89 [id number] Yoselin Benjaminnancy, DPT [facility] [address] [place] [id number] 02/01/2025 14:41:19 02/01/2025 15:42:59 Finding of scapular structure 839583033 G25.89 [id number] Yoselin Ehsan, DPT [facility] [address] [place] [id number] 02/06/2025 09:37:15 02/06/2025 11:19:06 Finding of scapular structure 507125066 G25.89 [id number] Yoselinmelina Moser, DPT [facility] [address] [place] [id number] 02/08/2025 10:26:58 02/08/2025 13:13:16 Finding of scapular structure 748424494 G25.89 [id number] Yoselin Moser, DPT [facility] [address] [place] [id number] 02/13/2025 11:18:14 02/13/2025 12:48:21 Finding of scapular structure 482226390 G25.89 [id number] Joceline Aguirre, CONSUMER ANALYST [facility] [address] [place] [id number] 02/26/2025 10:56:50 02/26/2025 12:02:38 Finding of scapular structure 358827118 G25.89 [id number] Joceline Aguirre CONSUMER ANALYST [facility] [address] [place] [id number] 02/28/2025 13:36:50 02/28/2025 14:35:41 Finding of scapular structure 494029334 G25.89 [id number] Joceline Aguirre CONSUMER ANALYST [facility] [address] [place] [id number] 03/11/2025 14:50:10 03/11/2025 15:29:11 Finding of scapular structure 319754267 G25.89 [id number] Joceline Aguirre CONSUMER ANALYST [facility] [address] [place] [id number] 03/14/2025 12:39:06 03/14/2025 12:50:32 Finding of scapular structure 209373913 G25.89 [id number] Joceline Aguirre CONSUMER ANALYST [facility] [address] [place] [id number] 03/22/2025 10:25:22 03/22/2025 11:51:59 Finding of scapular structure 268535639 G25.89 [id number] Joceline Aguirre CONSUMER ANALYST [facility] [address] [place] [id number] 04/12/2025 13:18:27 04/12/2025 14:09:18 Finding of scapular structure 867356832 G25.89 [id number] Joceline Aguirre, CONSUMER ANALYST [facility] [address] [place] [id number] 04/18/2025 12:34:56 04/18/2025 14:15:29 Finding of scapular structure 405489869 G25.89 [id number] Joceline Aguirre, CONSUMER ANALYST [facility] [address] [place] [id number] 04/25/2025 08:43:41 04/25/2025 09:31:17 Finding of scapular structure 778756920 G25.89 [id number] Joceline Aguirre CONSUMER ANALYST [facility] [address] [place] [id number] 05/03/2025 14:06:43 05/03/2025 16:07:34 Finding of scapular structure 710499218 G25.89 [id number] Health Concerns Section Related Observation LastModified by Organization Detai ls LastModified Time None Recorded Concern Status LastModified by Organization Details LastModified Time None Recorded Advance Directives Directive None Recorded Payers Insurance Date Sequence Insurance Name Policy Number Policy Galvan Covered Member ID Galvan Member ID Guarantor Name 05/15/2025 1 MEDICARE B-ID: [employer] Maryann Prajapati [id number] Maryann Prajapati 05/14/2025 2 CABRERA (CABRERA) Maryann Mcnairpatrick [id number] Maryann Prajapati Notes Date Note Type Note Provider Name and Address Organization Details Recorded Time 03/22/2025 text/html Patient reports no pain-feels tight. Joceline Aguirre, CONSUMER ANALYST [address], [place], [address], [facility] 03/22/2025 12:09:28 04/12/2025 text/html Patient reports 5-6/10 today-admits to not doing anything over the past two weeks due to her dog being ill. Joceline Aguirre, CONSUMER ANALYST [address], [place], [address], [facility] 04/12/2025 15:19:05 04/18/2025 text/html Patient reports 3-4/10 pain today. Joceline Aguirre, DAVID [address], [place], [address], [facility] 04/18/2025 14:06:04 04/25/2025 text/html Patient reports overdoing it with the stretching-01/10. Joceline Aguirre PTA [address], [place], [address], [facility] 04/25/2025 11:24:30 05/03/2025 text/html Patient cont to report shoulder is more tight than anything, really no pain. Joceline Aguirre PTA [address], [place], [address], [facility] 05/03/2025 15:17:52 OBGyn Episode No OBEpisode recorded.
== END 2025-08-23 12:48 | disposition home or self-care (01) ==
LOC: HO.HMCC 09:56
PROVIDERS: PCP Internal Medicine; Visit Provider Internal Medicine
DX: I63.9 Cerebral infarction, unspecified (principal); E11.9 Type 2 diabetes mellitus without complications; E78.5 Hyperlipidemia, unspecified

== ENCOUNTER → 2025-08-23 09:55 | Outpatient (BNVA) | payer MEDICARE, OTHER, SELFPAY | PROVIDERS: PCP Internal Medicine; Visit Provider Internal Medicine | DX: Z09 Encounter for follow-up examination after completed treatment for conditions other than malignant neoplasm (principal); I63.9 Cerebral infarction, unspecified; E11.9 Type 2 diabetes mellitus without complications; E78.5 Hyperlipidemia, unspecified; E55.9 Vitamin D deficiency, unspecified | CPT/HCPCS: 99212 ==